=== PATIENT | male | born 1995 | race Caucasian/White ===

== ENCOUNTER 2016-06-06 01:32 | Emergency (ER) | payer OTHER ==
[2016-06-06 01:42] VITALS: BP 139/77; PULSE 106; RESP 18; TEMP 98
--- NOTE | 2016-06-06 01:52 | ED ---
General Adult HPI - General Chief complaint: Neck Pain/Injury Stated complaint: stiff neck Time Seen by Provider: 06/06/16 01:43 Source: patient, RN notes reviewed Mode of arrival: ambulatory Limitations: no limitations - History of Present Illness Initial comments: 20-year-old male presents emergency Department with chief complaint of neck pain. Patient states that his concern is his 1-month-old brother was diagnosed with meningitis last week. Patient states that he has had no fevers no chills. Patient states that it started when he was laying in bed and jumped up and states that he had some discomfort. Patient states he has poor range of motion. He denies headache. He states that a slight runny nose and cough but states this wasn't going on for a while. Patient denies any nausea, vomiting, photophobia, blurred vision. Denies any focal weakness. Patient has not taken any acetaminophen or ibuprofen or any other medications that would of altered his temp. - Related Data Home Medications Medication Instructions Recorded Confirmed No Known Home Medications [No 06/06/16 06/06/16 Known Home Medications] Allergies Allergy/AdvReac Type Severity Reaction Status Date / Time dust Allergy Unknown Uncoded 05/12/14 09:43 pollen Allergy Unknown Uncoded 05/12/14 09:43 Review of Systems ROS Statement: Those systems with pertinent positive or pertinent negative responses have been documented in the HPI. ROS Other: All systems not noted in ROS Statement are negative. Past Medical History Past Medical History: No Reported History History of Any Multi-Drug Resistant Organisms: None Reported Past Surgical History: Ear Surgery Additional Past Surgical History / Comment(s): sinus surgery Past Psychological History: ADD/ADHD, Bipolar, Depression Smoking Status: Current every day smoker Past Alcohol Use History: None Reported Past Drug Use History: None Reported General Exam Limitations: no limitations General appearance: alert, in no apparent distress Head exam: Present: atraumatic, normocephalic, normal inspection Eye exam: Present: normal appearance, PERRL, EOMI. Absent: scleral icterus, conjunctival injection, periorbital swelling ENT exam: Present: normal exam, normal oropharynx, mucous membranes moist, TM's normal bilaterally, normal external ear exam Neck exam: Present: normal inspection, full ROM. Absent: tenderness, meningismus, lymphadenopathy, thyromegaly Respiratory exam: Present: normal lung sounds bilaterally. Absent: respiratory distress, wheezes, rales, rhonchi, stridor Cardiovascular Exam: Present: regular rate, normal rhythm, normal heart sounds. Absent: systolic murmur, diastolic murmur, rubs, gallop, clicks GI/Abdominal exam: Present: soft, normal bowel sounds. Absent: distended, tenderness, guarding, rebound, rigid Neurological exam: Present: alert, oriented X3, CN II-XII intact, reflexes normal. Absent: motor sensory deficit Course Vital Signs 06/06/16 01:38 Temperature 98.0 F Pulse Rate 106 H Respiratory 18 Rate Blood Pressure 139/77 O2 Sat by Pulse 98 Oximetry Medical Decision Making - Medical Decision Making 20-year-old male presented for neck pain. Patient's pain is muscle skeletal in nature. Patient is afebrile. Patient has no meningismus. Patient is concerned as he has a brother diagnosed. Patient symptoms started after movement today. Patient has no associated headache, fever. We did discuss strict return parameters, recheck with primary care physician on Tuesday. Patient agrees to plan. Disposition Clinical Impression: Neck pain Disposition: HOME SELF-CARE Condition: Stable Instructions: Cervical Strain (ED) Additional Instructions: Please return to the Emergency Department if symptoms worsen or any other concerns. Time of Disposition: 01:52
== END 2016-06-06 02:01 | disposition home or self-care (01) ==
LOC: EC 01:32
DX: M54.2 Cervicalgia (principal); F17.200 Nicotine dependence, unspecified, uncomplicated; Z91.048 Other nonmedicinal substance allergy status
CPT/HCPCS: 99283

== ENCOUNTER 2016-07-08 16:36 | Emergency (ER) | payer OTHER ==
[2016-07-08] MEDS ORDERED: LORazepam 1 MG TAB PO STA (17:11)
--- NOTE | 2016-07-08 17:15 | ED ---
General Adult HPI - General Chief complaint: Psychiatric Symptoms Stated complaint: Anxiety Time Seen by Provider: 07/08/16 16:55 Source: patient, RN notes reviewed Mode of arrival: ambulatory Limitations: no limitations - History of Present Illness Initial comments: 21-year-old male presents to the emergency department with a chief complaint of left-sided chest pain. Patient states that this chest pain started this morning when he started having more highly stressed he was during the day yesterday. Patient states he has anything to increased amount stress lately just in general. There is no specific area event. Patient states that he started to think about an trauma happen yesterday he started to have pain to the left side of his chest. Patient states that this started stabbing pain that is constant. Patient states that it comes and goes depending on how anxious that he feels. Patient denies any fever chills cough cold runny nose with this. Patient denies any nausea or vomiting. Patient states that he was concerned due to the pain so he thought that he should be evaluated. Patient denies any recent fever, chills, shortness of breath, back pain, abdominal pain , nausea vomiting, numbness or tingling, dysuria or hematuria, constipation or diarrhea, headaches or visual changes, or any other current symptoms. - Related Data Home Medications Medication Instructions Recorded Confirmed ALPRAZolam [Xanax] 0.5 mg PO ONCE 07/08/16 07/08/16 Flaxseed Oil [[place]-3 Flaxseed Oil] 1,000 mg PO DAILY 07/08/16 07/08/16 Allergies Allergy/AdvReac Type Severity Reaction Status Date / Time dust Allergy Unknown Uncoded 07/08/16 16:53 pollen Allergy Unknown Uncoded 07/08/16 16:53 Review of Systems ROS Statement: Those systems with pertinent positive or pertinent negative responses have been documented in the HPI. ROS Other: All systems not noted in ROS Statement are negative. Past Medical History Past Medical History: No Reported History History of Any Multi-Drug Resistant Organisms: None Reported Past Surgical History: Ear Surgery Additional Past Surgical History / Comment(s): sinus surgery Past Psychological History: ADD/ADHD, Bipolar, Depression Smoking Status: Current every day smoker Past Alcohol Use History: None Reported Past Drug Use History: Marijuana General Exam Limitations: no limitations General appearance: alert, anxious Head exam: Present: atraumatic, normocephalic, normal inspection ENT exam: Present: normal exam, mucous membranes moist Neck exam: Present: normal inspection. Absent: tenderness, meningismus, lymphadenopathy Respiratory exam: Present: normal lung sounds bilaterally. Absent: respiratory distress, wheezes, rales, rhonchi, stridor Cardiovascular Exam: Present: regular rate, normal rhythm, normal heart sounds. Absent: systolic murmur, diastolic murmur, rubs, gallop, clicks Neurological exam: Present: alert, oriented X3, CN II-XII intact. Absent: motor sensory deficit Psychiatric exam: Present: normal affect, normal mood Skin exam: Present: warm, dry, intact, normal color. Absent: rash Course Vital Signs 07/08/16 07/08/16 07/08/16 16:50 17:07 17:58 Temperature 97.8 F 97.0 F L 97.4 F L Pulse Rate 104 H 107 H 115 H Respiratory 18 20 20 Rate Blood Pressure 142/93 163/80 133/84 O2 Sat by Pulse 97 97 96 Oximetry - Reevaluation(s) Reevaluation #1: 07/08/16 18:13 Patient was reassessed and he states he is still feeling anxious. The patient lay down and close his eyes and relax and his heart rate went down to 83. Medical Decision Making - Medical Decision Making 21-year-old male presents emergency department with a chief complaint of left- sided chest pain associated with anxiety. Patient has been anxious the last few days. Patient states that he notices pain is worse when he is swelling on a thoughts. Patient does present with an elevated heart rate in the room if he talks incessantly come down he noticed that it does drop into the 90s. At this time patient with an Ativan EKG and chest x-ray were performed as well as shows no Acute process. This time we discussed the pain is most likely due due to the anxiety due to the fact that the pain has resolved with the medication. We did give him outpatient counseling referrals and parameters and follow-up. The patient stated that he understood all questions were answered. He will be discharged home. 07/08/16 17:24 normal sinus rhythm with marked sinus arrhythmia 89 bpm, normal axis, no atopy, no S-T depressions or elevations, Disposition Clinical Impression: Acute anxiety, Atypical chest pain Disposition: HOME SELF-CARE Condition: Stable Instructions: Anxiety (ED) Additional Instructions: Please use medication as discussed. Please follow up with family doctor if symptoms have not improved over the next two days. Please return to the emergency room if your symptoms increase or worsen or for any other concerns. Referrals: Oliver Nelson MD [Primary Care Provider] - 1-2 days Time of Disposition: 18:14
--- NOTE | 2016-07-08 18:08 | XR ---
EXAMINATION TYPE: XR chest 2V DATE OF EXAM: 07/08/2016 5:35 PM COMPARISON: 05/12/2014 HISTORY: Cough, pain TECHNIQUE: Frontal and lateral views of the chest are obtained. FINDINGS: There is no focal air space opacity, pleural effusion, or pneumothorax seen. The cardiac silhouette size is within normal limits. The osseous structures are intact. IMPRESSION: No acute cardiopulmonary process.
[2016-07-08 18:30] VITALS: BP 148/88; PULSE 88; RESP 18; TEMP 97.8
== END 2016-07-08 18:42 | disposition home or self-care (01) ==
LOC: EC 16:36
DX: R07.89 Other chest pain (principal); F41.9 Anxiety disorder, unspecified; F31.9 Bipolar disorder, unspecified; F90.9 Attention-deficit hyperactivity disorder, unspecified type; F17.200 Nicotine dependence, unspecified, uncomplicated; Z79.899 Other long term (current) drug therapy; Z91.09 Other allergy status, other than to drugs and biological substances
CPT/HCPCS: 71020; 93005; 99285

== ENCOUNTER 2016-07-12 14:24 | Emergency (ER) | payer OTHER ==
[2016-07-12 14:45] VITALS: TEMP 97.9
--- NOTE | 2016-07-12 15:26 | ED ---
General Adult HPI - General Chief complaint: Abdominal Pain Stated complaint: left side abdominal pain Time Seen by Provider: 07/12/16 14:59 Source: patient, family, RN notes reviewed Mode of arrival: ambulatory Limitations: no limitations - History of Present Illness Initial comments: Chief complaint and history of present illness 21-year-old male here with his mother. Mother reports is very anxious. He had complained of vomiting once yesterday and left lower quadrant pain that lasted 5 minutes on 2 occasions. Had soft stool afterwards no blood. No pain now. Appetite otherwise normal. Have an appointment to see her family doctor tomorrow and an appointment to see a psychiatrist in November. - Related Data Home Medications Medication Instructions Recorded Confirmed ALPRAZolam [Xanax] 0.5 mg PO ONCE 07/08/16 07/12/16 Flaxseed Oil [[place]-3 Flaxseed Oil] 1,000 mg PO DAILY 07/08/16 07/12/16 Allergies Allergy/AdvReac Type Severity Reaction Status Date / Time dust Allergy Unknown Uncoded 07/12/16 14:45 pollen Allergy Unknown Uncoded 07/12/16 14:45 Review of Systems ROS Statement: Those systems with pertinent positive or pertinent negative responses have been documented in the HPI. Review of systems currently no headache chest pain shortness breath GI/ problems and denies any nervousness or anxiety at this time. Mother reports she 's overly anxious about everything. He was in emergency room without past several days because of an anxiety attack. Mother will talk her family physician tomorrow but medications that might help in this respect plus she has an appointment to follow-up with her psychiatrist in November all systems otherwise reviewed. Past medical problems significant for anxiety. Surgeries tear surgery sinus surgery. Family history grandfather had heart attack grandmother had lung cancer. ALLERGIES seasonal patient does smoke encouraged to stop. ROS Other: All systems not noted in ROS Statement are negative. Past Medical History Past Medical History: No Reported History History of Any Multi-Drug Resistant Organisms: None Reported Past Surgical History: Ear Surgery Additional Past Surgical History / Comment(s): sinus surgery Past Psychological History: ADD/ADHD, Bipolar, Depression Smoking Status: Current every day smoker Past Alcohol Use History: None Reported Past Drug Use History: Marijuana General Exam - General Exam Comments Initial Comments: General: The patient is awake and alert, in no distress, and does not appear acutely ill. No complaints of pain at this time. Vital signs temp 97.9 pulse 100 respiratory rate 20 pulse ox 90% room air blood pressure 149/90. Patient chronically anxious. Patient was seeing his family physician tomorrow. Eye: Pupils are equal, round and reactive to light, extra-ocular movements are intact ; there is normal conjunctiva bilaterally. No signs of icterus. Ears, nose, mouth and throat: There are moist mucous membranes and no oral lesions. Neck: The neck is supple, there is no tenderness , no anterior cervical lymphadenopathy, no stiff neck no meningismus. Cardiovascular: There is a regular rate and rhythm. No murmur, rub or gallop is appreciated. Respiratory: Lungs are clear to auscultation, respirations are non-labored, breath sounds are equal. No wheezes, stridor, rales, or rhonchi. Gastrointestinal: Soft, non-distended, non-tender abdomen without masses or organomegaly noted. There is no rebound or guarding present. No CVA tenderness. Bowel sounds are unremarkable. Back: There is no tenderness to palpation in the midline. There is no obvious deformity. No rashes noted. Musculoskeletal: Normal up her lower stomach is no complaint of weakness or numbness. Neurological: No complaint of any neuro deficits. Skin: Skin is warm and dry and no rashes or lesions are noted. Psychiatric: History of anxiety. Seeing his family physician tomorrow and will discuss with him medications that might help in that respect also following up with the psychiatrist but not until November. Limitations: no limitations Course Vital Signs 07/12/16 14:44 Temperature 97.9 F Pulse Rate 100 Respiratory 20 Rate Blood Pressure 149/90 O2 Sat by Pulse 98 Oximetry Medical Decision Making - Medical Decision Making Medical decision-making. The abdomen is probably benign at this time. Be advised the patient use some Zantac or Pepcid [id number]. As well as Pepto-Bismol. Advance diet. Follow-up family physician tomorrow and psychiatrist as arranged Disposition Clinical Impression: Loose stools, Anxiety about health, Acute anxiety Disposition: HOME SELF-CARE Condition: Stable Instructions: Generalized Anxiety Disorder (ED) Additional Instructions: Use Pepto-Bismol. Follow-up 5 physician tomorrow and psychiatrist as arranged Time of Disposition: 15:26
[2016-07-12 15:39] VITALS: BP 142/89; PULSE 86; RESP 18
== END 2016-07-12 15:39 | disposition home or self-care (01) ==
LOC: EC 14:24
DX: F41.9 Anxiety disorder, unspecified (principal); R19.7 Diarrhea, unspecified; F17.200 Nicotine dependence, unspecified, uncomplicated
CPT/HCPCS: 99283

== ENCOUNTER 2016-07-15 13:45 | Emergency (ER) | payer OTHER ==
--- NOTE | 2016-07-15 14:04 | ED ---
Abdominal Pain HPI - General Chief Complaint: Abdominal Pain Stated Complaint: abdominal & neck pain-revisit Source: patient Mode of arrival: ambulatory Limitations: no limitations - History of Present Illness Initial Comments: Patient is a 21-year-old male who presents for evaluation for lower abdominal pressure on the left side which is improved over the last couple of days. Past medical history as below. Patient also states that he has some left lateral neck/shoulder pain which seems to be on his muscle. Patient states that he's been having about a week of nausea, vomiting, abdominal discomfort. He states that he recently got over a cold. He's had decreased oral intake during this time and is also decreased normal bowel movements for him. He states that he went to an outside hospital yesterday and had a complete workup. Stated that he had a CT of his abdomen and had blood work and everything seemed to check out. He states that he was discharged home with some stool softeners which she took. He took them last night and had diarrhea at 4 AM. He was also having some small stools after that. He comes in today because he still having some left lower abdominal pressure and was concerned that he was having some pain on the left side of his neck. He stated he became more concerned after he 1 on Glucotrol and saw with symptoms that could be. He denies any abdominal pain at this time. He also states that he does not have any headaches or blurry vision. He also denies fever, chills, URI symptoms, shortness of breath, cough , chest pain, nausea, vomiting, diarrhea, pain or burning with urination. - Related Data Home Medications Medication Instructions Recorded Confirmed Flaxseed Oil [[place]-3 Flaxseed Oil] 1,000 mg PO DAILY 07/08/16 07/15/16 LORazepam [Ativan] 1 mg PO ONCE@0600 PRN 07/15/16 07/15/16 Allergies Allergy/AdvReac Type Severity Reaction Status Date / Time dust Allergy Unknown Uncoded 07/12/16 14:45 pollen Allergy Unknown Uncoded 07/12/16 14:45 Review of Systems ROS Statement: Those systems with pertinent positive or pertinent negative responses have been documented in the HPI. ROS Other: All systems not noted in ROS Statement are negative. Past Medical History Past Medical History: No Reported History History of Any Multi-Drug Resistant Organisms: None Reported Past Surgical History: Ear Surgery Additional Past Surgical History / Comment(s): sinus surgery Past Psychological History: ADD/ADHD, Bipolar, Depression Smoking Status: Current every day smoker Past Alcohol Use History: Occasional Past Drug Use History: Marijuana General Exam Limitations: no limitations General appearance: alert, in no apparent distress, other (Well appearing. Nontoxic.) Head exam: Present: atraumatic, normocephalic, normal inspection Eye exam: Present: normal appearance, PERRL, EOMI. Absent: scleral icterus, conjunctival injection, periorbital swelling ENT exam: Present: normal exam, mucous membranes moist, other (Moist mucous membranes) Neck exam: Present: normal inspection, other (No point tenderness elicited over the cervical spine. No paraspinal muscle tenderness. Cannot elicit any points of tenderness. Full range of motion of the cervical spine.). Absent: tenderness, meningismus, lymphadenopathy Respiratory exam: Present: normal lung sounds bilaterally. Absent: respiratory distress, wheezes, rales, rhonchi, stridor Cardiovascular Exam: Present: regular rate, normal rhythm, normal heart sounds. Absent: systolic murmur, diastolic murmur, rubs, gallop, clicks GI/Abdominal exam: Present: soft, normal bowel sounds, other (Bowel sounds in all 4 quadrants. No point tenderness elicited. Negative McBurney sign. Negative Benites sign. Negative rebound tenderness. No Rovsing sign. No obturator or psoas sign.). Absent: distended, tenderness, guarding, rebound, rigid Extremities exam: Present: normal inspection, full ROM, normal capillary refill. Absent: tenderness, pedal edema, joint swelling, calf tenderness Back exam: Present: normal inspection Neurological exam: Present: alert, oriented X3, CN II-XII intact Psychiatric exam: Present: normal affect, normal mood Skin exam: Present: warm, dry, intact, normal color. Absent: rash Course Vital Signs 07/15/16 07/15/16 13:59 15:45 Temperature 98.2 F 98.6 F Pulse Rate 80 98 Respiratory 18 16 Rate Blood Pressure 153/94 159/79 O2 Sat by Pulse 97 98 Oximetry Medical Decision Making - Medical Decision Making Patient presents for evaluation for left-sided neck pain and left lower abdominal pressure. We will order basic labs with IV fluids. We'll also request records from [facility]. -Reviewed the physician note for Mr. noriega. Consistent with the story the patient provided. His vital signs were stable. Noted to be quite hypertensive at 163/138. Reviewed CMP and CBC which were unremarkable. No leukocytosis. Urinalysis noted to have ketones in the urine. No signs of urinary tract infection. Lipase amylase and troponin were all normal. Creatinine kinase was also normal. UDS was positive for benzodiazepines and marijuana. Review the report for the CT imaging which revealed no acute process. In the medical decision making, it was discussed that the patient had a single episode of hypotension which spontaneously resolved with IV fluids. Also noticed to have microscopic hematuria which the patient stated that was not discussed with him. 1530: Reviewed labs with the patient. Largely unchanged from yesterday's labs at the other hospital. Had a lengthy discussion with the patient about viral illnesses which I believe this patient is currently having. He is clinically appears well. He currently has no symptoms. Has a follow-up with his primary care physician this coming Tuesday. Encouraged yogurt, bland diet until his symptoms completely resolved. Plenty of fluids. Patient stated that he drank a significant amount of alcohol the day before going to [facility] which could attribute to some of his symptoms/abnormal findings. Discussed signs and symptoms on when to return to the emergency department for further evaluation. This includes worsening pain, changes in his pain characteristics, or any other symptoms that are concerning to the patient. He voiced understanding will follow-up with his primary care physician this coming Tuesday as scheduled. - Lab Data Result diagrams: 07/15/16 14:25 07/15/16 14:25 Lab Results 07/15/16 07/15/16 Range/Units 14:25 14:25 WBC 11.6 H (3.8-10.6) k/uL RBC 5.37 (4.30-5.90) m/uL Hgb 16.1 (13.0-17.5) gm/dL Hct 46.1 (39.0-53.0) % MCV 85.9 (80.0-100.0) fL MCH 29.9 (25.0-35.0) pg MCHC 34.8 (31.0-37.0) g/dL RDW 12.4 (11.5-15.5) % Plt Count 297 (150-450) k/uL Neutrophils % 78 % Lymphocytes % 15 % Monocytes % 6 % Eosinophils % 0 % Basophils % 0 % Neutrophils # 9.1 H (1.3-7.7) k/uL Lymphocytes # 1.7 (1.0-4.8) k/uL Monocytes # 0.6 (0-1.0) k/uL Eosinophils # 0.0 (0-0.7) k/uL Basophils # 0.0 (0-0.2) k/uL Sodium 140 (137-145) mmol/L Potassium 3.9 (3.5-5.1) mmol/L Chloride 100 (98-107) mmol/L Carbon Dioxide 23 (22-30) mmol/L Anion Gap 17 mmol/L BUN 12 (9-20) mg/dL Creatinine 1.11 (0.66-1.25) mg/dL Est GFR (MDRD) Af Amer >60 (>60 ml/min/1.73 sqM) Est GFR (MDRD) Non-Af >60 (>60 ml/min/1.73 sqM) Glucose 88 (74-99) mg/dL Calcium 9.9 (8.4-10.2) mg/dL Total Bilirubin 1.6 H (0.2-1.3) mg/dL AST 21 (17-59) U/L ALT 27 (21-72) U/L Alkaline Phosphatase 44 (38-126) U/L Total Protein 8.0 (6.3-8.2) g/dL Albumin 5.0 (3.5-5.0) g/dL Disposition Clinical Impression: Muscle strain, Abdominal pain, EMY (acute kidney injury) Disposition: HOME SELF-CARE Condition: Good Instructions: Abdominal Pain (ED) Referrals: Oliver Nelson MD [Primary Care Provider] - 1-2 days
[2016-07-15] MEDS ORDERED: SODIUM CHLORIDE 0.9% 1,000 ML IV ONE (14:19)
[2016-07-15 15:03] LABS: Basophils % (A) 0 %; CHCM 36.2; Eosinophils % (A) 0 %; HCT 46.1 % (39.0-53.0); HGB 16.1 gm/dL (13.0-17.5); Luc # (Auto) 0.14; Luc % (Auto) 1; Lymphocytes # (A) 1.7 k/uL (1.0-4.8); Lymphocytes % (A) 15 %; MCH 29.9 pg (25.0-35.0); MCHC 34.8 g/dL (31.0-37.0); MCV 85.9 fL (80.0-100.0); Mean Platelet Volume 6.6; Monocytes # (A) 0.6 k/uL (0-1.0); Monocytes % (A) 6 %; Neutrophils # (A) 9.1 k/uL (1.3-7.7); Neutrophils % (A) 78 %; RBC 5.37 m/uL (4.30-5.90); RDW 12.4 % (11.5-15.5); WBC 11.6 k/uL (3.8-10.6); WBC (Perox) 11.56
[2016-07-15 15:14] LABS: ALT 27 U/L (21-72); AST 21 U/L (17-59); Alkaline Phosphatase 44 U/L (38-126); Anion Gap 17 mmol/L; Blood Urea Nitrogen 12 mg/dL (9-20); Calcium 9.9 mg/dL (8.4-10.2); Carbon Dioxide 23 mmol/L (22-30); Chloride 100 mmol/L (98-107); Glucose 88 mg/dL (74-99); Non-African American GFR(MDRD) >60 (>60 ml/min/1.73 sqM); Potassium 3.9 mmol/L (3.5-5.1); Sodium 140 mmol/L (137-145); Total Bilirubin 1.6 mg/dL (0.2-1.3)
[2016-07-15 15:47] VITALS: BP 159/79; PULSE 98; RESP 16; TEMP 98.6
== END 2016-07-15 15:45 | disposition home or self-care (01) ==
LOC: EC 13:45
DX: S16.1XXA Strain of muscle, fascia and tendon at neck level, initial encounter (principal); N17.9 Acute kidney failure, unspecified; R31.29 Other microscopic hematuria; F17.200 Nicotine dependence, unspecified, uncomplicated; X58.XXXA Exposure to other specified factors, initial encounter; Z91.048 Other nonmedicinal substance allergy status
CPT/HCPCS: 36415; 80053; 85025; 96360; 99284

== ENCOUNTER 2016-07-16 03:28 | Emergency (ER) | payer OTHER ==
[2016-07-16 04:54] LABS: Appearance,Urine Clear (Clear); Basophils # (A) 0.1 k/uL (0-0.2); Basophils % (A) 1 %; Bilirubin,Urine Negative (Negative); CH 31.1; CHCM 36.6; Eosinophils # (A) 0.1 k/uL (0-0.7); Eosinophils % (A) 1 %; Glucose,Urine (UA) Negative (Negative); HCT 42.7 % (39.0-53.0); HDW 2.63; HGB 15.4 gm/dL (13.0-17.5); Ketones,Urine 2+ (Negative); Leukocyte Esterase,Urine Negative (Negative); Luc # (Auto) 0.17; Luc % (Auto) 2; Lymphocytes # (A) 1.9 k/uL (1.0-4.8); Lymphocytes % (A) 17 %; MCH 30.8 pg (25.0-35.0); MCHC 36.1 g/dL (31.0-37.0); MCV 85.4 fL (80.0-100.0); Monocytes # (A) 0.7 k/uL (0-1.0); Monocytes % (A) 6 %; Neutrophils # (A) 8.6 k/uL (1.3-7.7); Neutrophils % (A) 74 %; Nitrite,Urine Negative (Negative); Protein,Urine Negative (Negative); RBC 5.01 m/uL (4.30-5.90); RDW 12.2 % (11.5-15.5); UA Billing (MACRO vs. MICRO) CHEM; Urobilinogen,Urine <2.0 mg/dL (<2.0); WBC 11.5 k/uL (3.8-10.6); WBC (Perox) 11.42
--- NOTE | 2016-07-16 05:06 | XR ---
EXAM: XR Abdomen, 1 View. CLINICAL HISTORY: Reason: abdominal pain TECHNIQUE: Frontal upright views of the abdomen/pelvis. COMPARISON: No relevant prior studies available. FINDINGS: Gastrointestinal tract: No grossly dilated bowel loops or free air seen on these 2 upright views. Bones: Slight leftward curvature of the lumbar spine present. No acute fracture. IMPRESSION: No acute findings seen, as above.
[2016-07-16 05:07] LABS: ALT 30 U/L (21-72); AST 21 U/L (17-59); Alkaline Phosphatase 42 U/L (38-126); Amylase 39 U/L (30-110); Anion Gap 14 mmol/L; Blood Urea Nitrogen 9 mg/dL (9-20); Calcium 9.6 mg/dL (8.4-10.2); Carbon Dioxide 21 mmol/L (22-30); Chloride 103 mmol/L (98-107); Glucose 94 mg/dL (74-99); Non-African American GFR(MDRD) >60 (>60 ml/min/1.73 sqM); Sodium 138 mmol/L (137-145); Total Bilirubin 1.8 mg/dL (0.2-1.3); Total Protein 7.5 g/dL (6.3-8.2)
[2016-07-16] MEDS ORDERED: DICYCLOMINE 10 MG/ML 2 ML AMP IM STA (05:29)
--- NOTE | 2016-07-16 08:09 | US ---
EXAMINATION TYPE: US abdomen APPY DATE OF EXAM: 07/16/2016 7:32 AM COMPARISON: NONE CLINICAL HISTORY: 21-year-old male with right lower quadrant Pain. TECHNIQUE: Targeted sonographic examination of the right lower quadrant with graded compression. FINDINGS: APPENDIX AP Diameter (normal < 6mm): 2 mm Measured outer wall to outer wall. Is the appendix seen in its entirety from the proximal cecum to distal end: no Is the appendix compressible: yes Does the appendix wall appear hypervascular: no Is an appendicolith present: no Are there inflammatory changes or free fluid present: no Images show a sort segment, blind-ending tubular structure that is compressible measuring 2 mm in desirae meter. There is no abnormal right lower quadrant fluid collection or calcification seen. IMPRESSION: Findings are felt to represent the distal segment of a normal-appearing appendix. The mid and proxima l segments are not visualized and are not evaluated. Clinical correlation recommended.
--- NOTE | 2016-07-16 08:35 | ED ---
Abdominal Pain HPI - General Chief Complaint: Abdominal Pain Stated Complaint: Revisit - Abd Pain Time Seen by Provider: 07/16/16 03:48 Source: patient Mode of arrival: ambulatory Limitations: no limitations - History of Present Illness Initial Comments: Resented with abdominal pain initially patient was seen by Dr. Jsoey Dowling endorsed the care to me at approximately 7:20 AM today, patient has this abdominal pain going on for about a week he was seen at the [facility] then he was here as well yesterday at [facility] and today he had a CBC compressive metabolic panel urinalysis KUB and SINCE HE HAD A CT OF THE ABDOMEN DONE AT [address] [place] [address] him according to the patient's CT abdomen was normal he never had a high fever on arrival his temp was 99, when we rechecked it was 98 today denies any nausea any vomiting and no when I seen him as a follow-up with Dr. Dowling was totally pain-free him a no other complaints at all - Related Data Home Medications Medication Instructions Recorded Confirmed Flaxseed Oil [[place]-3 Flaxseed Oil] 1,000 mg PO DAILY 07/08/16 07/16/16 LORazepam [Ativan] 1 mg PO ONCE@0600 PRN 07/15/16 07/16/16 Allergies Allergy/AdvReac Type Severity Reaction Status Date / Time dust Allergy Unknown Uncoded 07/12/16 14:45 pollen Allergy Unknown Uncoded 07/12/16 14:45 Review of Systems ROS Statement: Those systems with pertinent positive or pertinent negative responses have been documented in the HPI. ROS Other: All systems not noted in ROS Statement are negative. Past Medical History Past Medical History: No Reported History History of Any Multi-Drug Resistant Organisms: None Reported Past Surgical History: Ear Surgery Additional Past Surgical History / Comment(s): sinus surgery Past Psychological History: ADD/ADHD, Bipolar, Depression Smoking Status: Current every day smoker Past Alcohol Use History: Occasional Past Drug Use History: Marijuana General Exam - General Exam Comments Initial Comments: General: The patient is awake and alert, in no distress, and does not appear acutely ill. Skin: Skin is warm and dry and no rashes or lesions are noted. Eye: Pupils are equal, round and reactive to light, extra-ocular movements are intact; there is normal conjunctiva bilaterally. Ears, nose, mouth and throat: There are moist mucous membranes and no oral lesions. Neck: The neck is supple, there is no tenderness or JVD. Cardiovascular: There is a regular rate and rhythm. No murmur, rub or gallop is appreciated. Respiratory: To auscultation bilateral, no wheezing no rhonchi no distress respiratory rosas noticed Gastrointestinal: Soft, non-distended, non-tender abdomen without masses or organomegaly noted. There is no rebound or guarding present. Bowel sounds are unremarkable. No abnormalities noticed on today's exam Back: There is no tenderness to palpation in the midline. There is no obvious deformity. Musculoskeletal: Normal ROM, no tenderness, There is no pedal edema. There is no calf tenderness or swelling. No cords were appreciated. Neurological: CN II-XII intact, Cranial nerves III through XII are intact. There are no obvious motor or sensory deficits. Coordination appears grossly intact. Speech is normal. Psychiatric: Cooperative, appropriate mood & affect, normal judgment. Limitations: no limitations Course Vital Signs 07/16/16 07/16/16 03:38 05:43 Temperature 99.0 F 98.2 F Pulse Rate 98 78 Respiratory 18 16 Rate Blood Pressure 137/103 132/58 O2 Sat by Pulse 98 100 Oximetry I discussed today's lab findings with him, his CBC is within normal range WBCs 11.5, compressive metabolic panel is negative total bili is 1.8 urinalysis is negative KUB is negative, ultrasound done was reviewed and the visible part of the appendix looked normal, I did offer patient that we could repeat the CAT scan of the abdomen and I did inform him about the amount of radiation he will encounter and he chose not to do ultrasound today but promises to come back if he has a fever chills or any worsening of symptoms Medical Decision Making - Lab Data Result diagrams: 07/16/16 04:35 07/16/16 04:35 Lab Results 07/16/16 07/16/16 07/16/16 Range/Units 04:35 04:35 04:35 WBC 11.5 H (3.8-10.6) k/uL RBC 5.01 (4.30-5.90) m/uL Hgb 15.4 (13.0-17.5) gm/dL Hct 42.7 (39.0-53.0) % MCV 85.4 (80.0-100.0) fL MCH 30.8 (25.0-35.0) pg MCHC 36.1 (31.0-37.0) g/dL RDW 12.2 (11.5-15.5) % Plt Count 259 (150-450) k/uL Neutrophils % 74 % Lymphocytes % 17 % Monocytes % 6 % Eosinophils % 1 % Basophils % 1 % Neutrophils # 8.6 H (1.3-7.7) k/uL Lymphocytes # 1.9 (1.0-4.8) k/uL Monocytes # 0.7 (0-1.0) k/uL Eosinophils # 0.1 (0-0.7) k/uL Basophils # 0.1 (0-0.2) k/uL Sodium 138 (137-145) mmol/L Potassium 4.0 (3.5-5.1) mmol/L Chloride 103 (98-107) mmol/L Carbon Dioxide 21 L (22-30) mmol/L Anion Gap 14 mmol/L BUN 9 (9-20) mg/dL Creatinine 1.00 (0.66-1.25) mg/dL Est GFR (MDRD) Af Amer >60 (>60 ml/min/1.73 sqM) Est GFR (MDRD) Non-Af >60 (>60 ml/min/1.73 sqM) Glucose 94 (74-99) mg/dL Calcium 9.6 (8.4-10.2) mg/dL Total Bilirubin 1.8 H (0.2-1.3) mg/dL AST 21 (17-59) U/L ALT 30 (21-72) U/L Alkaline Phosphatase 42 (38-126) U/L Total Protein 7.5 (6.3-8.2) g/dL Albumin 4.7 (3.5-5.0) g/dL Amylase 39 (30-110) U/L Lipase 35 (23-300) U/L Urine Color Yellow Urine Appearance Clear (Clear) Urine pH 6.0 (5.0-8.0) Ur Specific [place] 1.020 (1.001-1.035) Urine Protein Negative (Negative) Urine Glucose (UA) Negative (Negative) Urine Ketones 2+ H (Negative) Urine Blood Negative (Negative) Urine Nitrate Negative (Negative) Urine Bilirubin Negative (Negative) Urine Urobilinogen <2.0 (<2.0) mg/dL Ur Leukocyte Esterase Negative (Negative) Disposition Clinical Impression: Abdominal pain Disposition: HOME SELF-CARE Instructions: Abdominal Pain (ED) Additional Instructions: he is advised to use Tylenol one gram by mouth every 8 when necessary
[2016-07-16 08:51] VITALS: BP 141/83; PULSE 77; RESP 18; TEMP 98.4
== END 2016-07-16 08:52 | disposition home or self-care (01) ==
LOC: EC 03:28
DX: R10.9 Unspecified abdominal pain (principal); F17.200 Nicotine dependence, unspecified, uncomplicated
CPT/HCPCS: 99284; 96372; 36415; 80053; 82150; 83690; 85025; 81003; 74000; 76705; J0500; 99283

== ENCOUNTER 2016-07-16 10:56 | Emergency (ER) | payer OTHER ==
[2016-07-16 11:06] VITALS: BP 126/84; PULSE 90; RESP 20; TEMP 97.8
--- NOTE | 2016-07-16 11:35 | ED ---
Male Urogenital HPI - General Chief complaint: Urogenital Stated complaint: abd pain Time Seen by Provider: 07/16/16 11:22 Source: patient Mode of arrival: ambulatory Limitations: no limitations - History of Present Illness Initial comments: This 21-year-old white male presents playing of some swelling between his testicles. He can feel a small lump in this area and is worried about it. He was just in the emergency department earlier today and had full evaluation for abdominal pain. He's been in our emergency department and like [facility]'s emergency department multiple times recently. He does have some anxiety. No fevers or chills. The abdominal pain has resolved. He denies any other complaints or modifying factors. He states that he just noticed this lump shortly after leaving our emergency department just a couple hours ago. - Related Data Home Medications Medication Instructions Recorded Confirmed Flaxseed Oil [[place]-3 Flaxseed Oil] 1,000 mg PO DAILY 07/08/16 07/16/16 LORazepam [Ativan] 1 mg PO ONCE@0600 PRN 07/15/16 07/16/16 Allergies Allergy/AdvReac Type Severity Reaction Status Date / Time dust Allergy Unknown Uncoded 07/16/16 11:05 pollen Allergy Unknown Uncoded 07/16/16 11:05 Review of Systems ROS Statement: Those systems with pertinent positive or pertinent negative responses have been documented in the HPI. ROS Other: All systems not noted in ROS Statement are negative. Past Medical History Past Medical History: No Reported History History of Any Multi-Drug Resistant Organisms: None Reported Past Surgical History: Ear Surgery Additional Past Surgical History / Comment(s): sinus surgery Past Psychological History: ADD/ADHD, Bipolar, Depression Smoking Status: Current every day smoker Past Alcohol Use History: Occasional Past Drug Use History: Marijuana General Exam Limitations: no limitations GI/Abdominal exam: Present: other (The patient has a normal-appearing genitalia. There is no lesions. The testicles are nontender and there is no masses. There is that he is concerned regarding his is seminal vesicle. It is normal in palpation. There is no swelling or erythema or masses identified. Normal exam. No lymphadenopathy.) Course Vital Signs 07/16/16 11:04 Temperature 97.8 F Pulse Rate 90 Respiratory 20 Rate Blood Pressure 126/84 O2 Sat by Pulse 99 Oximetry Medical Decision Making - Medical Decision Making The patient was seen and examined. He has a normal examination. He was reassured and is discharged. Is felt as though he may have a strong underlying degree of anxiety. Disposition Clinical Impression: Scrotal pain, Normal exam Disposition: HOME SELF-CARE Condition: Good Instructions: Normal Exam (ED) Referrals: Oliver Nelson MD [Primary Care Provider] - 07/19/16 Time of Disposition: 11:34
== END 2016-07-16 11:45 | disposition home or self-care (01) ==
LOC: EC 10:56
DX: N50.82 Scrotal pain (principal); R10.9 Unspecified abdominal pain; F31.9 Bipolar disorder, unspecified; F41.8 Other specified anxiety disorders; F90.9 Attention-deficit hyperactivity disorder, unspecified type; F17.200 Nicotine dependence, unspecified, uncomplicated; Z79.899 Other long term (current) drug therapy; Z91.048 Other nonmedicinal substance allergy status
CPT/HCPCS: 99283

== ENCOUNTER 2016-07-17 05:48 | Emergency (ER) | payer OTHER ==
[2016-07-17 06:07] VITALS: BP 148/78; PULSE 93; RESP 18; TEMP 97.6
--- NOTE | 2016-07-17 06:07 | ED ---
General Adult HPI - General Stated complaint: Male Time Seen by Provider: 07/17/16 05:50 Source: RN notes reviewed - History of Present Illness Initial comments: This is a 21-year-old male who presents to the emergency Department complaining that he has something in one of his testicles. Patient has been in the emergency department at least 6 times in the previous week and he states his been overdue [facility] multiple times as well. Patient states he's had some abdominal pain he had occasional diarrhea he states he woke up and was nauseated was difficult for him to swallow water. Patient states she was evaluated for all these problems twice yesterday and multiple times previously. Patient states tonight he did drink some water and spit it back up but he did not vomit. But now he is worried about some lump between his testicles. Patient denies any pain. Patient denies any fever chills. Patient denies any abdominal pain currently. Patient denies any dysuria hematuria urinary frequency. Patient states he doesn't think he can urinate as much is he supposed to. - Related Data Home Medications Medication Instructions Recorded Confirmed Flaxseed Oil [[place]-3 Flaxseed Oil] 1,000 mg PO DAILY 07/08/16 07/17/16 LORazepam [Ativan] 1 mg PO ONCE@0600 PRN 07/15/16 07/17/16 Allergies Allergy/AdvReac Type Severity Reaction Status Date / Time dust Allergy Unknown Uncoded 07/16/16 11:05 pollen Allergy Unknown Uncoded 07/16/16 11:05 Review of Systems ROS Statement: Those systems with pertinent positive or pertinent negative responses have been documented in the HPI. ROS Other: All systems not noted in ROS Statement are negative. Past Medical History Past Medical History: No Reported History History of Any Multi-Drug Resistant Organisms: None Reported Past Surgical History: Ear Surgery Additional Past Surgical History / Comment(s): sinus surgery Past Psychological History: ADD/ADHD, Bipolar, Depression Smoking Status: Current every day smoker Past Alcohol Use History: Occasional Past Drug Use History: Marijuana General Exam - General Exam Comments Initial Comments: GENERAL: Patient is well-developed and well-nourished. Patient is nontoxic and well- hydrated and is in no acute distress. ENT: Neck is soft and supple. No significant lymphadenopathy is noted. Oropharynx is clear. Moist mucous membranes. Neck has full range of motion without eliciting any pain. EYES: The sclera were anicteric and conjunctiva were pink and moist. Extraocular movements were intact and pupils were equal round and reactive to light. Eyelids were unremarkable. ABDOMEN: Soft and nontender with normal bowel sounds. No palpable organomegaly was noted. There is no palpable pulsatile mass. Genitalia On testicular exam he showed me the area that he was concerned about and it was his epididymis and the area was not tender the scrotum was normal there is no redness no swelling. I felt no masses on his testicles. Neurological Patient is alert and oriented x3. Cranial nerves II through XII are grossly intact. Motor and sensory are also intact. Normal speech, volume and content. Symmetrical smile. MUSCULOSKELETAL: Normal extremities with adequate strength and full range of motion. LYMPHATICS: No significant lymphadenopathy is noted PSYCHIATRIC: Normal psychiatric evaluation. Patient is anxious Course Vital Signs 07/17/16 05:59 Temperature 97.6 F Pulse Rate 93 Respiratory 18 Rate Blood Pressure 148/78 O2 Sat by Pulse 96 Oximetry Disposition Clinical Impression: Normal exam, Acute anxiety Disposition: HOME SELF-CARE Instructions: Anxiety (ED) Referrals: Oliver Nelson MD [Primary Care Provider] - 1-2 days Time of Disposition: 06:06
== END 2016-07-17 06:18 | disposition home or self-care (01) ==
LOC: EC 05:48
DX: Z71.1 Person with feared health complaint in whom no diagnosis is made (principal); F41.9 Anxiety disorder, unspecified; J30.89 Other allergic rhinitis; J30.1 Allergic rhinitis due to pollen; F17.200 Nicotine dependence, unspecified, uncomplicated; Z91.048 Other nonmedicinal substance allergy status; Z79.899 Other long term (current) drug therapy
CPT/HCPCS: 99283

== ENCOUNTER 2016-07-26 11:44 | Day surgery (SDC) | payer OTHER ==
[2016-07-23 10:43] VITALS: BMI 21.7
[~2016-07-26 11:44] MED LIST: DEXAMETHASONE SOD PHOSPHATE 10 MG/ML 1 ML VIAL IV ONE; LACTATED RINGERS 1,000 ML IV SCH; LIDOCAINE 1% 20 ML VIAL (10MG/ML) FOR IV START INTRADERMA PRN; MIDAZOLAM 2 MG/2 ML VIAL IV PRN; ONDANSETRON 4 MG/2 ML VIAL IVP ONE; SCOPOLAMINE 1.5MG/72HR PATCH TRANSDERM ONE
[2016-07-26] MEDS ORDERED: MIDAZOLAM 2 MG/2 ML VIAL ONE (13:15)
[2016-07-26] MEDS ORDERED: LIDOCAINE 1% INJ 10MG/ML (20 ML MDV) ONE (13:15)
[2016-07-26] MEDS ORDERED: SUCCINYLCHOLINE CHLORIDE 100 MG/5 ML SYR IV ONE (13:15)
[2016-07-26] MEDS ORDERED: fentaNYL (PF) 50 MCG/ML 2 ML AMP ONE (13:15)
[2016-07-26] MEDS ORDERED: KETOROLAC 30 MG/ML 1 ML VIAL ONE (13:15)
[2016-07-26] MEDS ORDERED: PROPOFOL 10 MG/ML 20 ML VIAL IV ONE (13:15)
[2016-07-26] MEDS: ceFAZolin 2 GM in SODIUM CHLORIDE 0.9% 100 ML IVPB ONE ×2 (13:18→13:30)
[2016-07-26 14:20] VITALS: TEMP 98.6
[2016-07-26] MEDS: HYDROmorphone 1 MG/ML 1 ML SYRINGE IVP PRN ×2 (14:30→14:35)
[2016-07-26] MEDS ORDERED: HYDROcodone/APAP 5-325MG 1 EACH TAB PO ONE (15:15)
[2016-07-26 15:24] VITALS: RESP 18
[2016-07-26 16:03] VITALS: BP 122/78; PULSE 109
--- NOTE | 2016-07-26 16:22 | P.OP ---
Date of Procedure: 07/26/16 Preoperative Diagnosis: Scrotal mass Postoperative Diagnosis: Same Procedure(s) Performed: Excision of scrotal mass Anesthesia: ERICA Surgeon: Kishan Loera Estimated Blood Loss (ml): 20 IV fluids (ml): 400 Pathology: other (scrotal mass) Condition: stable Disposition: PACU Indications for Procedure: The patient is a 21-year-old male who presented one week ago with a posterior scrotal mass, the etiology of which was unclear. He was reexamined 2 days later , and the lesion was unchanged. He now comes for surgical excision of the mass. Preoperative examination reveals that the mass has decreased in size compared to the most recent examination on July 21. I discussed the option of canceling surgery with the patient and his mother, but he has elected to proceed with surgery. Operative Findings: Posterior midline scrotal mass, which appeared to be an area of thickened and inflamed subcutaneous tissue. Description of Procedure: The patient was taken to the operating room and placed in the supine position. The external genitalia was prepped and draped sterilely. The scalpel was used to make a midline posterior scrotal incision measuring approximately 2.5 cm in length.. The Bovie electrocautery was used to incise the underlying dartos fascia. This was done down to the "mass", which was actually subcutaneous tissue which was thickened and appeared inflamed. A combination of sharp and blunt dissection was used to dissect this circumferentially, and it was excised. This measured approximately 1 cm in diameter. Any areas of bleeding were controlled with electrocautery. Excellent hemostasis was attained. There was no purulence or drainage. The dartos fascia was closed using 3-0 Vicryl suture in a running fashion. The skin was closed using 3-0 Vicryl suture in a running, subcuticular fashion. All sponge and needle counts were correct. A sterile gauze dressing was applied over the incision, followed by scrotal support. The patient tolerated the procedure well was taken to the recovery room in stable condition.
== END 2016-07-26 16:14 | disposition home or self-care (01) ==
LOC: OR 11:44
PROVIDERS: ATTEND Urology
DX: D29.4 Benign neoplasm of scrotum (principal); I10 Essential (primary) hypertension; F41.8 Other specified anxiety disorders; F31.9 Bipolar disorder, unspecified; F17.200 Nicotine dependence, unspecified, uncomplicated; Z79.1 Long term (current) use of non-steroidal anti-inflammatories (NSAID); Z79.899 Other long term (current) drug therapy; Z91.048 Other nonmedicinal substance allergy status
CPT/HCPCS: 93005; 55899; J2250; J1100; J0690; J2405; J2001; J3010; J1885; J1170; J0330; J2704; 88304; 88341; 88342

== ENCOUNTER 2016-07-27 10:43 | Emergency (ER) | payer OTHER ==
[2016-07-27] MEDS ORDERED: KETOROLAC 60 MG/2 ML VIAL IM STA (11:25)
--- NOTE | 2016-07-27 11:28 | ED ---
General Adult HPI - General Chief complaint: Neck Pain/Injury Stated complaint: Neck/back pain Time Seen by Provider: 07/27/16 11:00 Source: patient, RN notes reviewed Mode of arrival: ambulatory Limitations: no limitations - History of Present Illness Initial comments: This is a 21-year-old male who presents emergency Department complaining that he has some neck pain slight upper abdominal pain. Patient states he had surgery yesterday for scrotal mass and he was intubated. Patient states his neck pain feels like muscular pain and it hurts when he starts running back and has to use his muscles always had a. Patient states once he lies down and he is lying still he has no pain. Patient states touching the muscles don't appear to hurt. Patient states she also has a slight epigastric soreness. Patient denies any nausea vomiting or diarrhea. Patient denies any fever or chills. - Related Data Home Medications Medication Instructions Recorded Confirmed ALPRAZolam [Xanax] 0.25 mg PO DAILY PRN 07/23/16 07/27/16 amLODIPine [Norvasc] 2.5 mg PO DAILY 07/23/16 07/27/16 Mirtazapine [Remeron] 15 mg PO HS 07/26/16 07/27/16 Previous Rx's Medication Instructions Recorded HYDROcodone/APAP 5-325MG [[place] 1 tab PO Q4HR PRN #20 tab 07/26/16 5-325] Ibuprofen [Motrin] 600 mg PO Q6HR PRN #20 tab 07/27/16 Allergies Allergy/AdvReac Type Severity Reaction Status Date / Time wheat Allergy Unknown Verified 07/27/16 11:33 dust Allergy Unknown Uncoded 07/27/16 10:52 pollen Allergy Unknown Uncoded 07/27/16 10:52 Review of Systems ROS Statement: Those systems with pertinent positive or pertinent negative responses have been documented in the HPI. ROS Other: All systems not noted in ROS Statement are negative. Past Medical History Past Medical History: GERD/Reflux, Hypertension Additional Past Medical History / Comment(s): SL HTN, RECENT RX GIVEN. CURRENT SCROTAL MASS. History of Any Multi-Drug Resistant Organisms: None Reported Past Surgical History: Ear Surgery Additional Past Surgical History / Comment(s): BMT. Sinus Surgery Past Anesthesia/Blood Transfusion Reactions: No Reported Reaction Past Psychological History: ADD/ADHD, Anxiety, Bipolar, Depression Smoking Status: Current every day smoker Past Alcohol Use History: Occasional Additional Past Alcohol Use History / Comment(s): SMOKING SINCE 2013, 1/2 PPD EST Past Drug Use History: None Reported - Past Family History Mother Family Medical History: No Reported History General Exam - General Exam Comments Initial Comments: GENERAL: Patient is well-developed and well-nourished. Patient is nontoxic and well- hydrated and is in no acute distress. ENT: Neck is soft and supple. No significant lymphadenopathy is noted. Oropharynx is clear. Moist mucous membranes. Neck has full range of motion without eliciting any pain. Patient only has pain when he is using his neck muscles to sit up and lay down. EYES: The sclera were anicteric and conjunctiva were pink and moist. Extraocular movements were intact and pupils were equal round and reactive to light. Eyelids were unremarkable. PULMONARY: Unlabored respirations. Good breath sounds bilaterally. No audible rales rhonchi or wheezing was noted. CARDIOVASCULAR: There is a regular rate and rhythm without any murmurs gallops or rubs. ABDOMEN: Soft and very minimal tenderness in the epigastric region. No palpable organomegaly was noted. There is no palpable pulsatile mass. SKIN: Skin is clear with no lesions or rashes and otherwise unremarkable. NEUROLOGIC: Patient is alert and oriented x3. Cranial nerves II through XII are grossly intact. Motor and sensory are also intact. Normal speech, volume and content. Symmetrical smile. MUSCULOSKELETAL: Normal extremities with adequate strength and full range of motion. LYMPHATICS: No significant lymphadenopathy is noted PSYCHIATRIC: Normal psychiatric evaluation. Limitations: no limitations Course Vital Signs 07/27/16 07/27/16 10:50 11:54 Temperature 99.0 F Pulse Rate 118 H 115 H Respiratory 20 18 Rate Blood Pressure 134/81 O2 Sat by Pulse 99 Oximetry Medical Decision Making - Medical Decision Making EKG shows sinus tachycardia at 102 bpm LA interval 126 QRS is 104 QT interval 328 QTc is 427. Patient's EKG shows no ST segment elevation or depression or T wave abnormalities are noted. Chest x-ray and KUB are normal. I went back into reevaluate the patient and he had no abdominal pain at this time. Disposition Clinical Impression: Strain of neck muscle Disposition: HOME SELF-CARE Condition: Good Instructions: Cervical Strain (ED) Prescriptions: Ibuprofen [Motrin] 600 mg PO Q6HR PRN #20 tab PRN Reason: For pain Referrals: Oliver Nelson MD [Primary Care Provider] - 1-2 days Time of Disposition: 12:23
[2016-07-27 11:57] VITALS: RESP 18
--- NOTE | 2016-07-27 12:30 | XR ---
EXAMINATION TYPE: XR chest 2V DATE OF EXAM: 07/27/2016 12:13 PM COMPARISON: 07/08/2016 INDICATION: Difficulty breathing chest heaviness TECHNIQUE: Single frontal view of the chest is obtained. FINDINGS: The heart size is normal. The pulmonary vasculature is normal. The lungs are clear. IMPRESSION: 1. No acute pulmonary process.
--- NOTE | 2016-07-27 12:31 | XR ---
EXAMINATION TYPE: XR KUB DATE OF EXAM: 07/27/2016 12:13 PM COMPARISON: 07/16/2016 INDICATION: Pain TECHNIQUE: Single view abdomen FINDINGS: There is a normal bowel gas pattern. Psoas margins are normal. No organomegaly is present. No suspicious air-fluid levels or differential air-fluid levels are present. No free air is present. IMPRESSION: 1. Normal abdomen
[2016-07-27 12:38] VITALS: BP 161/85; PULSE 109; TEMP 99.2
== END 2016-07-27 12:38 | disposition home or self-care (01) ==
LOC: EC 10:43
DX: S16.1XXA Strain of muscle, fascia and tendon at neck level, initial encounter (principal); R00.0 Tachycardia, unspecified; Z79.899 Other long term (current) drug therapy; Z91.018 Allergy to other foods; Z91.048 Other nonmedicinal substance allergy status; X58.XXXA Exposure to other specified factors, initial encounter
CPT/HCPCS: 99283; 96372; 93005; 71020; 74000; J1885

== ENCOUNTER 2017-06-14 21:37 | Emergency (ER) | payer OTHER ==
[2017-06-14 22:00] VITALS: BP 166/97; PULSE 114; RESP 20; TEMP 99.1
[2017-06-14 22:24] LABS: Appearance,Urine Clear (Clear); Bilirubin,Urine Negative (Negative); Blood,Urine Negative (Negative); Color,Urine Yellow; Glucose,Urine (UA) Negative (Negative); Ketones,Urine Negative (Negative); Leukocyte Esterase,Urine Negative (Negative); Nitrite,Urine Negative (Negative); Protein,Urine Trace (Negative); Specific Gravity,Urine 1.023 (1.001-1.035); Urobilinogen,Urine <2.0 mg/dL (<2.0)
--- NOTE | 2017-06-14 22:37 | ED ---
Abdominal Pain HPI - General Chief Complaint: Abdominal Pain Stated Complaint: abdominal pain/headache/nausea Time Seen by Provider: 06/14/17 21:56 Source: patient Mode of arrival: ambulatory Limitations: no limitations - History of Present Illness Initial Comments: 21-year-old male presented for evaluation of abdominal pain. States that the pain initially started 2 days ago and left lower quadrant abdomen and then moved to the right lower quadrant abdomen. Currently the pain is generalized superior abdominal pain howeve it is minimal and he states that it is barely present. He had some constipation and states that he only had 1 stool today however was a little loose. Otherwise he denies any nausea vomiting fevers chills chest pain shortness of breath dysuria or hematuria hematochezia and melena. States never having previous symptoms of this. There is no radiation of pain down of the testicles. - Related Data Home Medications Medication Instructions Recorded Confirmed Docusate [Colace] 100 mg PO DAILY PRN 06/14/17 06/14/17 Ibuprofen [Motrin Ib] 800 mg PO Q6H PRN 06/14/17 06/14/17 Previous Rx's Medication Instructions Recorded Dicyclomine [Bentyl] 20 mg PO QID #20 tablet 06/14/17 Allergies Allergy/AdvReac Type Severity Reaction Status Date / Time wheat Allergy Unknown Verified 06/14/17 22:23 dust Allergy Unknown Uncoded 06/14/17 21:56 pollen Allergy Unknown Uncoded 06/14/17 21:56 Review of Systems ROS Statement: Those systems with pertinent positive or pertinent negative responses have been documented in the HPI. ROS Other: All systems not noted in ROS Statement are negative. Constitutional: Denies: fever, chills Eyes: Denies: eye pain, vision change ENT: Denies: ear pain, throat pain Respiratory: Denies: cough, dyspnea Cardiovascular: Denies: chest pain, palpitations Endocrine: Denies: fatigue, polydipsia, polyuria Gastrointestinal: Reports: abdominal pain, constipation. Denies: nausea, vomiting, diarrhea, hematemesis, melena, hematochezia Genitourinary: Denies: urgency, dysuria Musculoskeletal: Denies: back pain, arthralgia, myalgia Skin: Denies: rash, lesions Neurological: Denies: headache, weakness Psychiatric: Denies: anxiety, depression Hematological/Lymphatic: Denies: easy bleeding, easy bruising Past Medical History Past Medical History: GERD/Reflux, Hypertension Additional Past Medical History / Comment(s): SL HTN, RECENT RX GIVEN. CURRENT SCROTAL MASS. History of Any Multi-Drug Resistant Organisms: None Reported Past Surgical History: Ear Surgery Additional Past Surgical History / Comment(s): BMT. Sinus Surgery Past Anesthesia/Blood Transfusion Reactions: No Reported Reaction Past Psychological History: ADD/ADHD, Anxiety, Bipolar, Depression Smoking Status: Current every day smoker Past Alcohol Use History: Occasional Past Drug Use History: None Reported - Past Family History Mother Family Medical History: No Reported History General Exam Limitations: no limitations General appearance: alert, in no apparent distress Head exam: Present: atraumatic, normocephalic, normal inspection Eye exam: Present: normal appearance, PERRL, EOMI. Absent: scleral icterus, conjunctival injection, periorbital swelling ENT exam: Present: normal exam, mucous membranes moist Neck exam: Present: normal inspection. Absent: tenderness, meningismus, lymphadenopathy Respiratory exam: Present: normal lung sounds bilaterally. Absent: respiratory distress, wheezes, rales, rhonchi, stridor Cardiovascular Exam: Present: normal rhythm, tachycardia, normal heart sounds. Absent: systolic murmur, diastolic murmur, rubs, gallop, clicks GI/Abdominal exam: Present: soft, normal bowel sounds. Absent: distended, tenderness, guarding, rebound, rigid Rectal exam: Present: deferred Extremities exam: Present: normal inspection, full ROM, normal capillary refill. Absent: tenderness, pedal edema, joint swelling, calf tenderness Back exam: Present: normal inspection Neurological exam: Present: alert, oriented X3, CN II-XII intact Psychiatric exam: Present: normal affect, normal mood Skin exam: Present: warm, dry, intact, normal color. Absent: rash Course Vital Signs 06/14/17 21:56 Temperature 99.1 F Pulse Rate 114 H Respiratory 20 Rate Blood Pressure 166/97 O2 Sat by Pulse 98 Oximetry Medical Decision Making - Medical Decision Making 21-year-old present for evaluation of abdominal pain. On physical examination there is no tenderness to palpation in the abdomen is soft without peritoneal signs of guarding, rigidity, or rebound. The remainder of his exam is benign. A urinalysis was obtained which showed no acute abnormalities. Given that the patient is a symptom at this time and has no pain that is elicited to palpation no further evaluations necessary. He was advised to follow-up with his primary care physician and given strict return instructions. The patient acknowledged an understanding of all information provided and agreed with this plan of care. - Lab Data Lab Results 06/14/17 Range/Units 22:14 Urine Color Yellow Urine Appearance Clear (Clear) Urine pH 6.0 (5.0-8.0) Ur Specific [place] 1.023 (1.001-1.035) Urine Protein Trace H (Negative) Urine Glucose (UA) Negative (Negative) Urine Ketones Negative (Negative) Urine Blood Negative (Negative) Urine Nitrite Negative (Negative) Urine Bilirubin Negative (Negative) Urine Urobilinogen <2.0 (<2.0) mg/dL Ur Leukocyte Esterase Negative (Negative) Disposition Clinical Impression: Abdominal pain Disposition: HOME SELF-CARE Condition: Stable Instructions: Abdominal Pain (ED) Additional Instructions: Please use medication as discussed. Please follow up with family doctor if symptoms have not improved over the next two days. Please return to the emergency room if your symptoms increase or worsen or for any other concerns. Prescriptions: Dicyclomine [Bentyl] 20 mg PO QID #20 tablet Referrals: Oliver Nelson MD [Primary Care Provider] - 1-2 days Time of Disposition: 22:37
== END 2017-06-14 22:59 | disposition home or self-care (01) ==
LOC: EC 21:37
DX: R10.84 Generalized abdominal pain (principal); R00.0 Tachycardia, unspecified; F17.200 Nicotine dependence, unspecified, uncomplicated; Z91.018 Allergy to other foods; Z91.048 Other nonmedicinal substance allergy status
CPT/HCPCS: 81003; 99284

== ENCOUNTER 2017-06-21 12:25 | Emergency (ER) | payer OTHER ==
[2017-06-21] MEDS ORDERED: IPRATROPIUM-ALBUTEROL 3 ML NEB INHALATION STA (12:47)
[2017-06-21] MEDS ORDERED: SODIUM CHLORIDE 0.9% 1,000 ML IV STA (12:47)
--- NOTE | 2017-06-21 12:56 | ED ---
URI HPI - General Chief Complaint: Upper Respiratory Infection Stated Complaint: Cough, SOB Time Seen by Provider: 06/21/17 12:37 Source: patient Mode of arrival: ambulatory Limitations: no limitations - History of Present Illness Initial Comments: Patient is a 21-year-old male presenting to the emergency department for shortness of breath and cough. The patient states that this is been going on for the last few days and that he has been coughing up green and black sputum. He also admits to some left-sided flank pain as well as some right-sided discomfort but is unable to quantify or give characteristics. He denies any fevers or chills and states that he came in today because he became concerned about the shortness of breath. He denies any congestion, runny nose, sore throat, headache. Pt also denies any prolonged periods of immobility, CA, DVT/ PE, estrogen use, or recent surgery. - Related Data Home Medications Medication Instructions Recorded Confirmed Ibuprofen [Motrin Ib] 800 mg PO Q6H PRN 06/14/17 06/21/17 clonazePAM [KlonoPIN] 0.5 mg PO DAILY PRN 06/21/17 06/21/17 Previous Rx's Medication Instructions Recorded Albuterol Inhaler [Ventolin Hfa 1 - 2 puff INHALATION Q6HR PRN #1 06/21/17 Inhaler] inhaler predniSONE 50 mg PO DAILY #5 tablet 06/21/17 Allergies Allergy/AdvReac Type Severity Reaction Status Date / Time wheat Allergy Unknown Verified 06/21/17 12:53 dust Allergy Unknown Uncoded 06/21/17 12:36 pollen Allergy Unknown Uncoded 06/21/17 12:36 Review of Systems ROS Statement: Those systems with pertinent positive or pertinent negative responses have been documented in the HPI. Constitutional: Negative for chills, fatigue and fever. HENT: Negative for congestion. Respiratory: Negative for chest tightness, positive for shortness of breath and wheezing. Cardiovascular: Negative for chest pain and palpitations. Gastrointestinal: Negative for abdominal pain. Negative for abdominal distention , diarrhea, nausea and vomiting. Genitourinary: Negative for dysuria. Musculoskeletal: Negative for back pain, neck pain and neck stiffness. Positive for left and right sided flank pain and rib pain Skin: Negative for color change. Neurological: Negative for dizziness, speech difficulty, weakness and light- headedness. Psychiatric/Behavioral: Negative for agitation and confusion. The patient is not nervous/anxious. ROS Other: All systems not noted in ROS Statement are negative. Past Medical History Past Medical History: GERD/Reflux, Hypertension Additional Past Medical History / Comment(s): SL HTN, RECENT RX GIVEN. CURRENT SCROTAL MASS. History of Any Multi-Drug Resistant Organisms: None Reported Past Surgical History: Ear Surgery Additional Past Surgical History / Comment(s): BMT. Sinus Surgery Past Anesthesia/Blood Transfusion Reactions: No Reported Reaction Past Psychological History: ADD/ADHD, Anxiety, Bipolar, Depression Smoking Status: Light tobacco smoker Past Alcohol Use History: Occasional Past Drug Use History: Marijuana - Past Family History Mother Family Medical History: No Reported History General Exam - General Exam Comments Initial Comments: Physical Exam Constitutional: Pt is oriented to person, place, and time. Pt appears well- developed and well-nourished. No distress. HENT: Head: Normocephalic and atraumatic. Eyes: EOM are normal. Neck: Normal range of motion. Neck supple. Cardiovascular: Tachycardia present, regular rhythm, S1 normal, S2 normal and normal heart sounds. Exam reveals no gallop and no friction rub. No murmur heard. Pulmonary/Chest: Effort normal and breath sounds normal. No tachypnea and no bradypnea. No respiratory distress. No wheezes noted. Diffuse rhonchi appreciable Abdominal: Soft. Bowel sounds are normal. Pt exhibits no shifting dullness, no distension, no pulsatile liver, no fluid wave, no abdominal bruit and no ascites. There is no tenderness. There is no rigidity, no rebound, no guarding, no tenderness at McBurney's point and negative Benites's sign. Musculoskeletal: Normal range of motion. Neurological: Pt is alert and oriented to person, place, and time. No cranial nerve deficit. Skin: Skin is warm and dry. No rash noted. He is not diaphoretic. No erythema. No pallor. Psychiatric: He has a normal mood and affect. His behavior is normal. Thought content normal. Limitations: no limitations Course Vital Signs 06/21/17 06/21/17 06/21/17 12:32 13:18 13:28 Temperature 98.4 F Pulse Rate 117 H 117 H 107 H Respiratory 20 Rate Blood Pressure 141/86 O2 Sat by Pulse 99 Oximetry 06/21/17 14:23 Temperature 97.4 F L Pulse Rate 100 Respiratory 18 Rate Blood Pressure 125/87 O2 Sat by Pulse 98 Oximetry - Reevaluation(s) Reevaluation #1: 06/21/17 13:44 Patient reexamined and noted to be resting colorfully in bed. Lung exam was much more improved with no rhonchi. Patient states that symptoms are resolved. Medical Decision Making - Medical Decision Making Laboratory studies revealed that there was no significant leukocytosis and d- dimer was also performed and noted to be negative. EKG was also performed and noted to show sinus tachycardia with no significant ST depressions or elevations and patient was given breathing treatment and stated that symptoms were significantly improved. Etiology of the shortness of breath is unclear but likely secondary to respiratory infection of viral nature. Chest x-ray was also performed and showed no evidence of acute pathology. Because of the improvement with breathing treatment and negative workup, the patient was given a prescription for both albuterol as well as steroids.Patient was reexamined prior to d/c and found to be resting comfortably in bed in no acute distress.Explained all labs and diagnostic test results and that we will discharge the patient home and patient is to follow up with PCP in 1-2 days and return to the ED if symptoms worsen. Pt is agreeable to plan. - Lab Data Result diagrams: 06/21/17 13:01 06/21/17 13:01 Lab Results 06/21/17 06/21/17 06/21/17 Range/Units 13:01 13:01 13:01 WBC 5.9 (3.8-10.6) k/uL RBC 5.41 (4.30-5.90) m/uL Hgb 16.2 (13.0-17.5) gm/dL Hct 46.7 (39.0-53.0) % MCV 86.2 (80.0-100.0) fL MCH 29.9 (25.0-35.0) pg MCHC 34.7 (31.0-37.0) g/dL RDW 12.4 (11.5-15.5) % Plt Count 286 (150-450) k/uL Neutrophils % 49 % Lymphocytes % 37 % Monocytes % 7 % Eosinophils % 4 % Basophils % 1 % Neutrophils # 2.9 (1.3-7.7) k/uL Lymphocytes # 2.2 (1.0-4.8) k/uL Monocytes # 0.4 (0-1.0) k/uL Eosinophils # 0.2 (0-0.7) k/uL Basophils # 0.0 (0-0.2) k/uL D-Dimer <0.17 (<0.60) mg/L FEU Sodium 141 (137-145) mmol/L Potassium 4.0 (3.5-5.1) mmol/L Chloride 103 (98-107) mmol/L Carbon Dioxide 24 (22-30) mmol/L Anion Gap 14 mmol/L BUN 15 (9-20) mg/dL Creatinine 1.00 (0.66-1.25) mg/dL Est GFR (MDRD) Af Amer >60 (>60 ml/min/1.73 sqM) Est GFR (MDRD) Non-Af >60 (>60 ml/min/1.73 sqM) Glucose 109 H (74-99) mg/dL Calcium 10.0 (8.4-10.2) mg/dL Magnesium 1.8 (1.6-2.3) mg/dL Influenza Type A RNA (Not Detectd) Influenza Type B (PCR) (Not Detectd) 06/21/17 Range/Units 13:01 WBC (3.8-10.6) k/uL RBC (4.30-5.90) m/uL Hgb (13.0-17.5) gm/dL Hct (39.0-53.0) % MCV (80.0-100.0) fL MCH (25.0-35.0) pg MCHC (31.0-37.0) g/dL RDW (11.5-15.5) % Plt Count (150-450) k/uL Neutrophils % % Lymphocytes % % Monocytes % % Eosinophils % % Basophils % % Neutrophils # (1.3-7.7) k/uL Lymphocytes # (1.0-4.8) k/uL Monocytes # (0-1.0) k/uL Eosinophils # (0-0.7) k/uL Basophils # (0-0.2) k/uL D-Dimer (<0.60) mg/L FEU Sodium (137-145) mmol/L Potassium (3.5-5.1) mmol/L Chloride (98-107) mmol/L Carbon Dioxide (22-30) mmol/L Anion Gap mmol/L BUN (9-20) mg/dL Creatinine (0.66-1.25) mg/dL Est GFR (MDRD) Af Amer (>60 ml/min/1.73 sqM) Est GFR (MDRD) Non-Af (>60 ml/min/1.73 sqM) Glucose (74-99) mg/dL Calcium (8.4-10.2) mg/dL Magnesium (1.6-2.3) mg/dL Influenza Type A RNA Not Detected (Not Detectd) Influenza Type B (PCR) Not Detected (Not Detectd) - EKG Data EKG shows normal: sinus rhythm Rate: tachycardia EKG Comments: EKG shows sinus tachycardia with rate of 102 bpm, MO interval 128 ms, QRS duration 106, QTC 435. No significant ST depressions or elevations are noted Disposition Clinical Impression: Bronchitis Disposition: HOME SELF-CARE Condition: Good Instructions: Upper Respiratory Infection (ED) Prescriptions: Albuterol Inhaler [Ventolin Hfa Inhaler] 1 - 2 puff INHALATION Q6HR PRN #1 inhaler PRN Reason: Shortness Of Breath Or Wheezing predniSONE 50 mg PO DAILY #5 tablet Referrals: Oliver Nelson MD [Primary Care Provider] - 1-2 days Time of Disposition: 14:10
[2017-06-21 13:19] LABS: Basophils % (A) 1 %; Eosinophils # (A) 0.2 k/uL (0-0.7); Eosinophils % (A) 4 %; HCT 46.7 % (39.0-53.0); HGB 16.2 gm/dL (13.0-17.5); Lymphocytes # (A) 2.2 k/uL (1.0-4.8); Lymphocytes % (A) 37 %; MCH 29.9 pg (25.0-35.0); MCHC 34.7 g/dL (31.0-37.0); MCV 86.2 fL (80.0-100.0); Mean Platelet Volume 6.3; Monocytes # (A) 0.4 k/uL (0-1.0); Monocytes % (A) 7 %; Neutrophils # (A) 2.9 k/uL (1.3-7.7); Neutrophils % (A) 49 %; Platelet Count 286 k/uL (150-450); RBC 5.41 m/uL (4.30-5.90); RDW 12.4 % (11.5-15.5); WBC 5.9 k/uL (3.8-10.6)
[2017-06-21 13:23] LABS: Anion Gap 14 mmol/L; Blood Urea Nitrogen 15 mg/dL (9-20); Carbon Dioxide 24 mmol/L (22-30); Chloride 103 mmol/L (98-107); Glucose 109 mg/dL (74-99); Magnesium 1.8 mg/dL (1.6-2.3); Sodium 141 mmol/L (137-145)
--- NOTE | 2017-06-21 13:49 | XR ---
EXAMINATION TYPE: XR chest 2V DATE OF EXAM: 06/21/2017 COMPARISON: 07/27/2016 HISTORY: Cough and shortness of breath TECHNIQUE: Frontal and lateral views of the chest are obtained. FINDINGS: There is no focal air space opacity, pleural effusion, or pneumothorax seen. The cardiac silhouette size is within normal limits. The osseous structures are intact. Metallic nipple rings a re incidentally noted. Mild degenerative changes of the thoracic spine are multilevel. IMPRESSION: No acute cardiopulmonary process.
[2017-06-21 14:24] VITALS: BP 125/87; PULSE 100; RESP 18; TEMP 97.4
== END 2017-06-21 14:24 | disposition home or self-care (01) ==
LOC: EC 12:25
DX: J40 Bronchitis, not specified as acute or chronic (principal); R00.0 Tachycardia, unspecified; F17.200 Nicotine dependence, unspecified, uncomplicated; Z91.018 Allergy to other foods; Z91.048 Other nonmedicinal substance allergy status
CPT/HCPCS: 36415; 71046; 80048; 83735; 85025; 85379; 87502; 93005; 94640; 96360; 99284

== ENCOUNTER 2017-11-16 22:54 | Emergency (ER) | payer OTHER ==
[2017-11-17 00:14] VITALS: BP 146/83; PULSE 96; RESP 17
[2017-11-17] MEDS ORDERED: IBUPROFEN 600 MG TAB PO STA (00:15)
[2017-11-17] MEDS ORDERED: PENICILLIN VK 500MG STARTER 4 TAB BTL PO STA (00:15)
--- NOTE | 2017-11-17 00:15 | ED ---
General Adult HPI - General Chief complaint: Dental/Oral Stated complaint: Jaw numbness/soreness Time Seen by Provider: 11/16/17 23:41 Source: patient, RN notes reviewed Mode of arrival: ambulatory Limitations: no limitations - History of Present Illness Initial comments: Patient 22-year-old male presenting to the emergency room today with a chief complaint of numbness and pain to the right side of the upper lip and cheek area with dental pain. He states that occurred and started approximately half hour ago. Patient denies any drainage or discharge. Patient does admit to headache. Patient does admit that he was smoking a week prior to coming but does not believe that the activity associated. Patient states never had similar symptoms in the past. Denies any other complaints. Patient denies any recent fever, chills, shortness of breath, chest pain, back pain, abdominal pain , nausea or vomiting, dysuria or hematuria, constipation or diarrhea, visual changes, or any other complaints. - Related Data Home Medications Medication Instructions Recorded Confirmed Ibuprofen [Motrin Ib] 800 mg PO Q6H PRN 06/14/17 06/21/17 clonazePAM [KlonoPIN] 0.5 mg PO DAILY PRN 06/21/17 06/21/17 Previous Rx's Medication Instructions Recorded Albuterol Inhaler [Ventolin Hfa 1 - 2 puff INHALATION Q6HR PRN #1 06/21/17 Inhaler] inhaler predniSONE 50 mg PO DAILY #5 tablet 06/21/17 Ibuprofen [Motrin] 600 mg PO Q6HR PRN #40 day 11/17/17 Penicillin V Potassium [Pen Vee K] 500 mg PO QID #40 tablet 11/17/17 Allergies Allergy/AdvReac Type Severity Reaction Status Date / Time wheat Allergy Unknown Verified 11/16/17 22:58 dust Allergy Unknown Uncoded 11/16/17 22:58 pollen Allergy Unknown Uncoded 11/16/17 22:58 Review of Systems ROS Statement: Those systems with pertinent positive or pertinent negative responses have been documented in the HPI. ROS Other: All systems not noted in ROS Statement are negative. Past Medical History Past Medical History: GERD/Reflux, Hypertension Additional Past Medical History / Comment(s): SL HTN, RECENT RX GIVEN. CURRENT SCROTAL MASS. History of Any Multi-Drug Resistant Organisms: None Reported Past Surgical History: Ear Surgery Additional Past Surgical History / Comment(s): BMT. Sinus Surgery Past Anesthesia/Blood Transfusion Reactions: No Reported Reaction Past Psychological History: ADD/ADHD, Anxiety, Bipolar, Depression Smoking Status: Light tobacco smoker Past Alcohol Use History: Occasional Past Drug Use History: Marijuana - Past Family History Mother Family Medical History: No Reported History General Exam - General Exam Comments Initial Comments: General: The patient is awake and alert, in no distress, and does not appear acutely ill. Eye: Pupils are equal, round and reactive to light, extra-ocular movements are intact. No nystagmus. There is normal conjunctiva bilaterally. No signs of icterus. Ears, nose, mouth and throat: There are moist mucous membranes and no oral lesions. Tender in the gumline above tooth #8. No sign of abscess. Uvula midline. Patient swallows without difficulty. Sensation intact to the upper lip and right cheek. Neck: The neck is supple, there is no tenderness or JVD. Musculoskeletal: Normal ROM, no tenderness. Strength 5/5. Sensation intact. Pulses equal bilaterally 2+. Neurological: A&O x 3. CN II-XII intact, There are no obvious motor or sensory deficits. Coordination appears grossly intact. Speech is normal. Skin: Skin is warm and dry and no rashes or lesions are noted. Psychiatric: Cooperative, appropriate mood & affect, normal judgment. Limitations: no limitations Course Vital Signs 11/16/17 22:56 Temperature 98.0 F Pulse Rate 119 H Respiratory 18 Rate Blood Pressure 153/81 O2 Sat by Pulse 99 Oximetry Medical Decision Making - Medical Decision Making Patient does have tenderness to the gumline above tooth #8. There is no sign of abscess formation at this time. Patient's vitals rechecked stable here in the emergency room. Patient advised anti-inflammatories for pain will be started on antibiotics cover for dental abscess. He is advised following up with the dentist over the next 2 days return here to the emergency room symptoms increase or worsen. Disposition Clinical Impression: Dental abscess Disposition: HOME SELF-CARE Condition: Good Instructions: Dental Abscess (ED) Additional Instructions: Please use antibiotics as prescribed following up with dentist over the next 2 days. Please return here to the emergency room symptoms increase or worsen or for any other concerns. Prescriptions: Ibuprofen [Motrin] 600 mg PO Q6HR PRN #40 day PRN Reason: Pain Penicillin V Potassium [Pen Vee K] 500 mg PO QID #40 tablet Is patient prescribed a controlled substance at d/c from ED?: No Referrals: Oliver Nelson MD [Primary Care Provider] - 1-2 days Time of Disposition: 00:14
[2017-11-17 00:40] VITALS: TEMP 98.2
== END 2017-11-17 00:38 | disposition home or self-care (01) ==
LOC: EC 22:54
DX: K04.7 Periapical abscess without sinus (principal); F17.200 Nicotine dependence, unspecified, uncomplicated; Z91.018 Allergy to other foods; Z91.048 Other nonmedicinal substance allergy status
CPT/HCPCS: 99283

== ENCOUNTER 2017-12-10 13:35 | Emergency (ER) | payer OTHER ==
[2017-12-10 13:45] VITALS: RESP 18; TEMP 98.2
--- NOTE | 2017-12-10 14:05 | ED ---
General Adult HPI - General Chief complaint: Abdominal Pain Stated complaint: epigastric/chest pain Time Seen by Provider: 12/10/17 14:04 Source: patient, RN notes reviewed, old records reviewed Mode of arrival: ambulatory Limitations: no limitations - History of Present Illness Initial comments: This is a 22-year-old male to the ER for evaluation. This patient presents today for evaluation regards to abdominal pain, nonspecific epigastric abdominal pain. Patient has no significant pain now no tenderness. No fevers, no travel history no nausea vomiting or diarrhea. Denies any medication drugs rel call use. No significant medical history, no failure hours of similar complaint - Related Data Home Medications Medication Instructions Recorded Confirmed clonazePAM [KlonoPIN] 0.5 mg PO DAILY PRN 06/21/17 12/10/17 Allergies Allergy/AdvReac Type Severity Reaction Status Date / Time wheat Allergy Unknown Verified 12/10/17 13:45 dust Allergy Unknown Uncoded 12/10/17 13:45 pollen Allergy Unknown Uncoded 12/10/17 13:45 Review of Systems ROS Statement: Those systems with pertinent positive or pertinent negative responses have been documented in the HPI. ROS Other: All systems not noted in ROS Statement are negative. Past Medical History Past Medical History: GERD/Reflux, Hypertension Additional Past Medical History / Comment(s): SL HTN, RECENT RX GIVEN. CURRENT SCROTAL MASS. History of Any Multi-Drug Resistant Organisms: None Reported Past Surgical History: Ear Surgery Additional Past Surgical History / Comment(s): BMT. Sinus Surgery Past Anesthesia/Blood Transfusion Reactions: No Reported Reaction Past Psychological History: ADD/ADHD, Anxiety, Bipolar, Depression Smoking Status: Current every day smoker Past Alcohol Use History: None Reported Past Drug Use History: Marijuana - Past Family History Mother Family Medical History: No Reported History General Exam Limitations: no limitations General appearance: alert, in no apparent distress Head exam: Present: atraumatic, normocephalic, normal inspection Eye exam: Present: normal appearance, PERRL, EOMI. Absent: scleral icterus, conjunctival injection, periorbital swelling ENT exam: Present: normal exam, mucous membranes moist Neck exam: Present: normal inspection. Absent: tenderness, meningismus, lymphadenopathy Respiratory exam: Present: normal lung sounds bilaterally. Absent: respiratory distress, wheezes, rales, rhonchi, stridor Cardiovascular Exam: Present: regular rate, normal rhythm, normal heart sounds. Absent: systolic murmur, diastolic murmur, rubs, gallop, clicks GI/Abdominal exam: Present: soft, normal bowel sounds. Absent: distended, tenderness, guarding, rebound, rigid Extremities exam: Present: normal inspection, full ROM, normal capillary refill. Absent: tenderness, pedal edema, joint swelling, calf tenderness Back exam: Present: normal inspection Neurological exam: Present: alert, oriented X3, CN II-XII intact Psychiatric exam: Present: normal affect, normal mood Skin exam: Present: warm, dry, intact, normal color. Absent: rash Course Vital Signs 12/10/17 13:43 Temperature 98.2 F Pulse Rate 123 H Respiratory 18 Rate Blood Pressure 141/87 O2 Sat by Pulse 98 Oximetry - Reevaluation(s) Reevaluation #1: 12/10/17 15:25 Patient remains without significant symptoms EKG Findings - EKG Comments: EKG Findings:: EKG shows sinus tachycardia rate 104, W[place] 120, QRS 94, QTc 412 Medical Decision Making - Medical Decision Making 22 male the ER with nonspecific abdominal pain. Patient can be discharged - Lab Data Result diagrams: 12/10/17 14:17 12/10/17 14:17 Lab Results 12/10/17 12/10/17 12/10/17 Range/Units 14:17 14:17 14:17 WBC 10.4 (3.8-10.6) k/uL RBC 5.60 (4.30-5.90) m/uL Hgb 16.5 (13.0-17.5) gm/dL Hct 46.9 (39.0-53.0) % MCV 83.7 (80.0-100.0) fL MCH 29.5 (25.0-35.0) pg MCHC 35.2 (31.0-37.0) g/dL RDW 12.5 (11.5-15.5) % Plt Count 293 (150-450) k/uL Neutrophils % 66 % Lymphocytes % 23 % Monocytes % 7 % Eosinophils % 2 % Basophils % 0 % Neutrophils # 6.8 (1.3-7.7) k/uL Lymphocytes # 2.4 (1.0-4.8) k/uL Monocytes # 0.7 (0-1.0) k/uL Eosinophils # 0.2 (0-0.7) k/uL Basophils # 0.1 (0-0.2) k/uL PT (9.0-12.0) sec INR (<1.2) APTT (22.0-30.0) sec D-Dimer (<0.60) mg/L FEU Sodium 138 (137-145) mmol/L Potassium 4.0 (3.5-5.1) mmol/L Chloride 104 (98-107) mmol/L Carbon Dioxide 26 (22-30) mmol/L Anion Gap 8 mmol/L BUN 16 (9-20) mg/dL Creatinine 1.00 (0.66-1.25) mg/dL Est GFR (CKD-EPI)AfAm >90 (>60 ml/min/1.73 sqM) Est GFR (CKD-EPI)NonAf >90 (>60 ml/min/1.73 sqM) Glucose 95 (74-99) mg/dL Calcium 10.1 (8.4-10.2) mg/dL Total Bilirubin 0.8 (0.2-1.3) mg/dL AST 33 (17-59) U/L ALT 64 (21-72) U/L Alkaline Phosphatase 46 (38-126) U/L Total Creatine Kinase 239 H (55-170) U/L CK-MB (CK-2) 0.6 (0.0-2.4) ng/mL CK-MB (CK-2) Rel Index 0.3 Troponin I <0.012 (0.000-0.034) ng/mL Total Protein 7.6 (6.3-8.2) g/dL Albumin 4.9 (3.5-5.0) g/dL Amylase 58 (30-110) U/L Lipase 54 (23-300) U/L 12/10/17 Range/Units 14:17 WBC (3.8-10.6) k/uL RBC (4.30-5.90) m/uL Hgb (13.0-17.5) gm/dL Hct (39.0-53.0) % MCV (80.0-100.0) fL MCH (25.0-35.0) pg MCHC (31.0-37.0) g/dL RDW (11.5-15.5) % Plt Count (150-450) k/uL Neutrophils % % Lymphocytes % % Monocytes % % Eosinophils % % Basophils % % Neutrophils # (1.3-7.7) k/uL Lymphocytes # (1.0-4.8) k/uL Monocytes # (0-1.0) k/uL Eosinophils # (0-0.7) k/uL Basophils # (0-0.2) k/uL PT 10.3 (9.0-12.0) sec INR 1.0 (<1.2) APTT 26.5 (22.0-30.0) sec D-Dimer <0.17 (<0.60) mg/L FEU Sodium (137-145) mmol/L Potassium (3.5-5.1) mmol/L Chloride (98-107) mmol/L Carbon Dioxide (22-30) mmol/L Anion Gap mmol/L BUN (9-20) mg/dL Creatinine (0.66-1.25) mg/dL Est GFR (CKD-EPI)AfAm (>60 ml/min/1.73 sqM) Est GFR (CKD-EPI)NonAf (>60 ml/min/1.73 sqM) Glucose (74-99) mg/dL Calcium (8.4-10.2) mg/dL Total Bilirubin (0.2-1.3) mg/dL AST (17-59) U/L ALT (21-72) U/L Alkaline Phosphatase (38-126) U/L Total Creatine Kinase (55-170) U/L CK-MB (CK-2) (0.0-2.4) ng/mL CK-MB (CK-2) Rel Index Troponin I (0.000-0.034) ng/mL Total Protein (6.3-8.2) g/dL Albumin (3.5-5.0) g/dL Amylase (30-110) U/L Lipase (23-300) U/L - Radiology Data Radiology results: report reviewed (XR abd series w CXR negative for acute disease), image reviewed Disposition Clinical Impression: Abdominal pain Disposition: HOME SELF-CARE Condition: Good Instructions: Abdominal Pain (ED) Is patient prescribed a controlled substance at d/c from ED?: No Referrals: Oliver Nelson MD [Primary Care Provider] - 1-2 days
[2017-12-10] MEDS ORDERED: SODIUM CHLORIDE 0.9% 1,000 ML IV STA (14:06)
[2017-12-10] MEDS ORDERED: PANTOPRAZOLE 40 MG/10 ML VIAL IVP STA (14:06)
[2017-12-10 14:29] LABS: Basophils # (A) 0.1 k/uL (0-0.2); Basophils % (A) 0 %; Eosinophils # (A) 0.2 k/uL (0-0.7); Eosinophils % (A) 2 %; HCT 46.9 % (39.0-53.0); HGB 16.5 gm/dL (13.0-17.5); Lymphocytes # (A) 2.4 k/uL (1.0-4.8); Lymphocytes % (A) 23 %; MCH 29.5 pg (25.0-35.0); MCHC 35.2 g/dL (31.0-37.0); MCV 83.7 fL (80.0-100.0); Mean Platelet Volume 6.6; Monocytes # (A) 0.7 k/uL (0-1.0); Monocytes % (A) 7 %; Neutrophils # (A) 6.8 k/uL (1.3-7.7); Neutrophils % (A) 66 %; Platelet Count 293 k/uL (150-450); RDW 12.5 % (11.5-15.5); WBC 10.4 k/uL (3.8-10.6)
[2017-12-10 14:50] LABS: D-Dimer <0.17 mg/L FEU (<0.60); Partial Thromboplastin Time 26.5 sec (22.0-30.0); Prothrombin Time 10.3 sec (9.0-12.0)
--- NOTE | 2017-12-10 14:50 | XR ---
EXAMINATION TYPE: XR abdomen acute w cxr DATE OF EXAM: 12/10/2017 COMPARISON: NONE HISTORY: Pain with shortness of breath. TECHNIQUE: Supine and upright, views of the abdomen are obtained. Frontal view of the chest was acqu ired. FINDINGS: There is no evidence for pneumoperitoneum. The bowel gas pattern is unremarkable as there is air throughout nondilated small and large bowel. No sizeable air fluid levels. No mass effects are seen. No unusual calcifications. Frontal view of the chest demonstrates superimposition of metallic nipple piercing artifacts. No defi nite pneumothorax or acute parenchymal infiltrate. No vascular decompensation. IMPRESSION: No definite evidence of free air or bowel obstruction. Frontal view of the chest demonstrate no acute infiltrate or vascular decompensation. Marked metallic artifacts from nipple piercing.
[2017-12-10 15:05] LABS: Creatine Kinase 239 U/L (55-170)
[2017-12-10 15:10] LABS: ALT 64 U/L (21-72); AST 33 U/L (17-59); Albumin 4.9 g/dL (3.5-5.0); Alkaline Phosphatase 46 U/L (38-126); Amylase 58 U/L (30-110); Anion Gap 8 mmol/L; Blood Urea Nitrogen 16 mg/dL (9-20); Calcium 10.1 mg/dL (8.4-10.2); Carbon Dioxide 26 mmol/L (22-30); Chloride 104 mmol/L (98-107); Glucose 95 mg/dL (74-99); Lipase 54 U/L (23-300); Sodium 138 mmol/L (137-145); Total Bilirubin 0.8 mg/dL (0.2-1.3); Total Protein 7.6 g/dL (6.3-8.2)
[2017-12-10 15:17] LABS: Creatine Kinase MB 0.6 ng/mL (0.0-2.4); Troponin I <0.012 ng/mL (0.000-0.034)
[2017-12-10] MEDS ORDERED: KETOROLAC 30 MG/ML 1 ML VIAL IVP STA (15:29)
[2017-12-10 15:36] VITALS: BP 121/85; PULSE 96
== END 2017-12-10 15:46 | disposition home or self-care (01) ==
LOC: EC 13:35
DX: R10.13 Epigastric pain (principal); F17.200 Nicotine dependence, unspecified, uncomplicated; Z91.018 Allergy to other foods; Z91.048 Other nonmedicinal substance allergy status
CPT/HCPCS: 36415; 93005; 85379; 80053; 82150; 82550; 82553; 83690; 84484; 85025; 85610; 85730; 74022; 99284; 96374; 96375; 96361; J1885; C9113

== ENCOUNTER 2018-05-04 09:33 | Emergency (ER) | payer OTHER ==
[2018-05-04 09:58] VITALS: RESP 18; TEMP 98.1
[2018-05-04] MEDS ORDERED: SODIUM CHLORIDE 0.9% 1,000 ML IV STA (10:29)
[2018-05-04 11:59] LABS: Basophils % (A) 0 %; Eosinophils % (A) 0 %; HCT 49.2 % (39.0-53.0); HGB 17.3 gm/dL (13.0-17.5); Lymphocytes # (A) 1.7 k/uL (1.0-4.8); Lymphocytes % (A) 19 %; MCH 29.8 pg (25.0-35.0); MCHC 35.2 g/dL (31.0-37.0); MCV 84.6 fL (80.0-100.0); Mean Platelet Volume 6.7; Monocytes # (A) 0.5 k/uL (0-1.0); Monocytes % (A) 5 %; Neutrophils # (A) 6.8 k/uL (1.3-7.7); Neutrophils % (A) 74 %; Platelet Count 300 k/uL (150-450); RBC 5.82 m/uL (4.30-5.90); RDW 12.5 % (11.5-15.5); WBC 9.1 k/uL (3.8-10.6)
[2018-05-04 12:02] LABS: Appearance,Urine Clear (Clear); Bacteria,Urine Rare /hpf; Bilirubin,Urine Negative (Negative); Blood,Urine Negative (Negative); Color,Urine Yellow; Glucose,Urine (UA) Negative (Negative); Ketones,Urine 3+ (Negative); Leukocyte Esterase,Urine Negative (Negative); Mucus,Urine Occasional /hpf; Nitrite,Urine Negative (Negative); PH, Urine 6.5 (5.0-8.0); Protein,Urine 1+ (Negative); Specific Gravity,Urine 1.028 (1.001-1.035)
[2018-05-04 12:20] LABS: ALT 46 U/L (21-72); AST 32 U/L (17-59); Albumin 5.3 g/dL (3.5-5.0); Alkaline Phosphatase 45 U/L (38-126); Amylase 69 U/L (30-110); Anion Gap 15 mmol/L; Blood Urea Nitrogen 14 mg/dL (9-20); Calcium 10.6 mg/dL (8.4-10.2); Carbon Dioxide 20 mmol/L (22-30); Chloride 105 mmol/L (98-107); Glucose 105 mg/dL (74-99); Lipase 76 U/L (23-300); Sodium 140 mmol/L (137-145); Total Protein 8.7 g/dL (6.3-8.2)
--- NOTE | 2018-05-04 12:23 | US ---
EXAMINATION TYPE: US abdomen APPY DATE OF EXAM: 05/04/2018 COMPARISON: US CLINICAL HISTORY: Pain. RLQ pain radiating to right medial inguinal area x 2 days, nausea and vomiti ng, sweats and chills APPENDIX AP Diameter (normal < 6mm): 5.2 mm Measured outer wall to outer wall. Is the appendix seen in its entirety from the proximal cecum to distal end: yes Is the appendix compressible: yes Does the appendix wall appear hypervascular: no Is an appendicolith present: no Is there inflammatory changes or free fluid present: no Right inguinal lymph node is seen and size = 2.4 x 1.8 x 0.6cm. Patient states it is mildly painful at inguinal area. IMPRESSION: 1. Right inguinal lymph node. 2. Appendix as visualized appears normal. Clinical management recommended.
--- NOTE | 2018-05-04 13:15 | ED ---
General Adult HPI - General Chief complaint: Abdominal Pain Stated complaint: RT SIDE PAIN, NALINI Source: patient, RN notes reviewed, old records reviewed Mode of arrival: ambulatory Limitations: no limitations - History of Present Illness Initial comments: 20-year-old male patient with past medical history of anxiety presents to ED with right lower quadrant abdominal pain of 4 days, some nausea and vomitting, moderate pain with urination for 2 weeks. Patient also had some diarrhea, loose stool. Patient has concern, would like to be treated for gonorrhea/ chlamydia. Patient states that the abdominal pain is right lower quadrant waxing and waning dull pain. Patient states that nausea vomiting has been ongoing for approximately 2 days, states that his emesis is mostly just saliva. Patient feels that he is dehydrated, would like to receive fluid. Patient denies chest pain, shortness breath, headache, changes in vision. Systemic: Pt denies fatigue, myalgia, fever/chills, rash. Pt denies weakness, night sweats, weight loss. Neuro: Pt denies headache, visual disturbances, syncope or pre-syncope. HEENT: Pt denies ocular discharge or irritation, otalgia, rhinorrhea, pharyngitis or notable lymphadenopathy. Cardiopulmonary: Pt denies chest pain, SOB, heart palpitations, dyspnea on exertion. : Pt deniesfrequency/urgency. Denies new onset urinary or bowel incontinence. MSK: Pt denies myalgia, loss of strength or function in extremities. Neuro: Pt denies new onset weakness, paresthesias. - Related Data Home Medications Medication Instructions Recorded Confirmed clonazePAM [KlonoPIN] 0.5 mg PO DAILY PRN 06/21/17 05/04/18 Ketoconazole [Ketoconazole 2%] 1 applic TOPICAL DAILY 05/04/18 05/04/18 Allergies Allergy/AdvReac Type Severity Reaction Status Date / Time pollen extracts Allergy Unknown Verified 05/04/18 20:05 wheat Allergy Unknown Verified 05/04/18 20:05 dust Allergy Unknown Uncoded 05/04/18 20:05 Review of Systems ROS Statement: Those systems with pertinent positive or pertinent negative responses have been documented in the HPI. ROS Other: All systems not noted in ROS Statement are negative. Past Medical History Past Medical History: GERD/Reflux, Hypertension Additional Past Medical History / Comment(s): SL HTN, RECENT RX GIVEN. CURRENT SCROTAL MASS. History of Any Multi-Drug Resistant Organisms: None Reported Past Surgical History: Ear Surgery Additional Past Surgical History / Comment(s): BMT. Sinus Surgery Past Anesthesia/Blood Transfusion Reactions: No Reported Reaction Past Psychological History: ADD/ADHD, Anxiety, Bipolar, Depression Smoking Status: Current every day smoker Past Alcohol Use History: None Reported Past Drug Use History: Marijuana - Past Family History Mother Family Medical History: No Reported History General Exam - General Exam Comments Initial Comments: Constitutional: NAD, AOX3, Pt has pleasant affect. HEENT: NC/AT, trachea midline, neck supple, no lymphadenopathy. Posterior pharynx non erythematous, without exudates. External ears appear normal, without discharge. Mucous membranes moist. Eyes PERRLA, EOM intact. There is no scleral icterus. No pallor noted. Cardiopulmonary: RRR, no murmurs, rubs or gallops, no JVD noted. Lungs CTAB in anterior and posterior vitale. No peripheral edema. Abdominal exam: Abdomen soft and non-distended. Right lower quadrant moderately tender to palpation. Rosving sign negative, psoas sign negative. Heel tap negative. Benites sign negative. No ecchymoses, elodia and ferrell hui sign negative. Bowel sounds active in LLQ. No hepatosplenomegaly. No ecchymosis Neuro: CN II-XII grossly intact. No nuchal rigidity. MSK: No posterior calf tenderness bilaterally, homans sign negative bilaterally. Posterior tibialis and radial pulse +2 bilaterally. Sensation intact in upper and lower extremities. Full active ROM in upper and lower extremities, 5/5 stregnth. : testicles hanging symmetrically, no tenderness to testicals bilaterally, creamesteric reflex intact bilaterally, no masses felt. Limitations: no limitations Course Vital Signs 05/04/18 05/04/18 09:55 14:37 Temperature 98.1 F 98.1 F Pulse Rate 117 H 92 Respiratory 18 18 Rate Blood Pressure 151/83 144/73 O2 Sat by Pulse 98 98 Oximetry Medical Decision Making - Medical Decision Making 20-year-old male patient with past medical history of anxiety presents to ED with right lower quadrant abdominal pain of 4 days, some nausea and vomitting, moderate pain with urination for 2 weeks. Patient has concern, would like to be treated for gonorrhea/chlamydia. Patient states that the abdominal pain is right lower quadrant waxing and waning dull pain. Patient states that nausea vomiting has been ongoing for approximately 2 days, states that his emesis is mostly just saliva. Physical exam did not display acute pathology. exam was within normal limits. UA displayed +3 ketones, explained results patient, patient states he has not eaten since yesterday. CBC/CMP were not impressive. Patient to continue monitor symptoms. At the patient experiencing viral gastroenteritis. Mentation this is self-limiting process. Patient otherwise understanding. Chest importance of by mouth intake. Patient verbalized understanding. Patient has scheduled follow-up primary care provider tomorrow. Patient to return to ED if new symptoms develop including chest pain, shortness breath, abdominal pain, any other new symptoms. Patient to be called on results of gonorrhea or chlamydia. Case discussed with Dr. Key. - Lab Data Result diagrams: 05/04/18 10:55 05/04/18 10:55 Lab Results 05/04/18 05/04/18 05/04/18 Range/Units 10:55 10:55 10:55 WBC 9.1 (3.8-10.6) k/uL RBC 5.82 (4.30-5.90) m/uL Hgb 17.3 (13.0-17.5) gm/dL Hct 49.2 (39.0-53.0) % MCV 84.6 (80.0-100.0) fL MCH 29.8 (25.0-35.0) pg MCHC 35.2 (31.0-37.0) g/dL RDW 12.5 (11.5-15.5) % Plt Count 300 (150-450) k/uL Neutrophils % 74 % Lymphocytes % 19 % Monocytes % 5 % Eosinophils % 0 % Basophils % 0 % Neutrophils # 6.8 (1.3-7.7) k/uL Lymphocytes # 1.7 (1.0-4.8) k/uL Monocytes # 0.5 (0-1.0) k/uL Eosinophils # 0.0 (0-0.7) k/uL Basophils # 0.0 (0-0.2) k/uL Sodium 140 (137-145) mmol/L Potassium 4.0 (3.5-5.1) mmol/L Chloride 105 (98-107) mmol/L Carbon Dioxide 20 L (22-30) mmol/L Anion Gap 15 mmol/L BUN 14 (9-20) mg/dL Creatinine 0.98 (0.66-1.25) mg/dL Est GFR (CKD-EPI)AfAm >90 (>60 ml/min/1.73 sqM) Est GFR (CKD-EPI)NonAf >90 (>60 ml/min/1.73 sqM) Glucose 105 H (74-99) mg/dL Calcium 10.6 H (8.4-10.2) mg/dL Total Bilirubin 1.0 (0.2-1.3) mg/dL AST 32 (17-59) U/L ALT 46 (21-72) U/L Alkaline Phosphatase 45 (38-126) U/L Total Protein 8.7 H (6.3-8.2) g/dL Albumin 5.3 H (3.5-5.0) g/dL Amylase 69 (30-110) U/L Lipase 76 (23-300) U/L Urine Color Yellow Urine Appearance Clear (Clear) Urine pH 6.5 (5.0-8.0) Ur Specific [place] 1.028 (1.001-1.035) Urine Protein 1+ H (Negative) Urine Glucose (UA) Negative (Negative) Urine Ketones 3+ H (Negative) Urine Blood Negative (Negative) Urine Nitrite Negative (Negative) Urine Bilirubin Negative (Negative) Urine Urobilinogen 2.0 (<2.0) mg/dL Ur Leukocyte Esterase Negative (Negative) Urine WBC 1 (0-5) /hpf Urine Bacteria Rare H (None) /hpf Urine Mucus Occasional H (None) /hpf Disposition Clinical Impression: Abdominal pain, STI (sexually transmitted infection), Gastroenteritis Disposition: HOME SELF-CARE Condition: Good Instructions: Gonorrhea (ED), Abdominal Pain (ED) Additional Instructions: Patient to adhere to previously discussed treatment plan and will take medication(s) as directed. Patient to follow up with PCP in 1-2 days. Patient to return to ED if symptoms do not improve. Is patient prescribed a controlled substance at d/c from ED?: No Referrals: Nakul Rice Jr, DO [Primary Care Provider] - 1-2 days Time of Disposition: 14:37
[2018-05-04] MEDS ORDERED: AZITHROMYCIN 500 MG TAB PO STA (13:45)
[2018-05-04] MEDS ORDERED: cefTRIAXone 250 MG VIAL IM STA (13:45)
[2018-05-04 14:37] VITALS: BP 144/73; PULSE 92
--- NOTE | 2018-05-04 20:24 | ED ---
Medical Decision Making - Medical Decision Making 20-year-old male patient with past medical history of anxiety presents to ED with right lower quadrant abdominal pain of 4 days, some nausea and vomitting, moderate pain with urination for 2 weeks. Patient has concern, would like to be treated for gonorrhea/chlamydia. Patient states that the abdominal pain is right lower quadrant waxing and waning dull pain. Patient states that nausea vomiting has been ongoing for approximately 2 days, states that his emesis is mostly just saliva. Physical exam displayed some right lower quadrant tenderness. US of RLQ displayed appendix and no signs of appendicitis. exam was within normal limits. UA displayed +3 ketones, explained results patient, patient states he has not eaten since yesterday. CBC/CMP were not impressive. Patient to continue monitor symptoms. At the patient experiencing viral gastroenteritis. Mentation this is self-limiting process. Patient otherwise understanding. Chest importance of by mouth intake. Patient verbalized understanding. Patient has scheduled follow-up primary care provider tomorrow. Patient to return to ED if new symptoms develop including chest pain, shortness breath, abdominal pain, any other new symptoms. Patient to be called on results of gonorrhea or chlamydia. Case discussed with Dr. Key. - Lab Data Result diagrams: 05/04/18 10:55 05/04/18 10:55 Lab Results 05/04/18 05/04/18 05/04/18 Range/Units 10:55 10:55 10:55 WBC 9.1 (3.8-10.6) k/uL RBC 5.82 (4.30-5.90) m/uL Hgb 17.3 (13.0-17.5) gm/dL Hct 49.2 (39.0-53.0) % MCV 84.6 (80.0-100.0) fL MCH 29.8 (25.0-35.0) pg MCHC 35.2 (31.0-37.0) g/dL RDW 12.5 (11.5-15.5) % Plt Count 300 (150-450) k/uL Neutrophils % 74 % Lymphocytes % 19 % Monocytes % 5 % Eosinophils % 0 % Basophils % 0 % Neutrophils # 6.8 (1.3-7.7) k/uL Lymphocytes # 1.7 (1.0-4.8) k/uL Monocytes # 0.5 (0-1.0) k/uL Eosinophils # 0.0 (0-0.7) k/uL Basophils # 0.0 (0-0.2) k/uL Sodium 140 (137-145) mmol/L Potassium 4.0 (3.5-5.1) mmol/L Chloride 105 (98-107) mmol/L Carbon Dioxide 20 L (22-30) mmol/L Anion Gap 15 mmol/L BUN 14 (9-20) mg/dL Creatinine 0.98 (0.66-1.25) mg/dL Est GFR (CKD-EPI)AfAm >90 (>60 ml/min/1.73 sqM) Est GFR (CKD-EPI)NonAf >90 (>60 ml/min/1.73 sqM) Glucose 105 H (74-99) mg/dL Calcium 10.6 H (8.4-10.2) mg/dL Total Bilirubin 1.0 (0.2-1.3) mg/dL AST 32 (17-59) U/L ALT 46 (21-72) U/L Alkaline Phosphatase 45 (38-126) U/L Total Protein 8.7 H (6.3-8.2) g/dL Albumin 5.3 H (3.5-5.0) g/dL Amylase 69 (30-110) U/L Lipase 76 (23-300) U/L Urine Color Yellow Urine Appearance Clear (Clear) Urine pH 6.5 (5.0-8.0) Ur Specific [place] 1.028 (1.001-1.035) Urine Protein 1+ H (Negative) Urine Glucose (UA) Negative (Negative) Urine Ketones 3+ H (Negative) Urine Blood Negative (Negative) Urine Nitrite Negative (Negative) Urine Bilirubin Negative (Negative) Urine Urobilinogen 2.0 (<2.0) mg/dL Ur Leukocyte Esterase Negative (Negative) Urine WBC 1 (0-5) /hpf Urine Bacteria Rare H (None) /hpf Urine Mucus Occasional H (None) /hpf Disposition Clinical Impression: Abdominal pain, STI (sexually transmitted infection), Gastroenteritis Disposition: HOME SELF-CARE Condition: Good Instructions: Gonorrhea (ED), Abdominal Pain (ED) Additional Instructions: Patient to adhere to previously discussed treatment plan and will take medication(s) as directed. Patient to follow up with PCP in 1-2 days. Patient to return to ED if symptoms do not improve. Is patient prescribed a controlled substance at d/c from ED?: No Referrals: Nakul Rice Jr, DO [Primary Care Provider] - 1-2 days
[2018-05-05 14:24] LABS: C. trachomatis,PCR Negative (Neg,Equiv); Chlamydia trachomatis Source Urine; N. gonorrhoeae,PCR Negative (Neg,Equiv); Neisseria Source Urine
== END 2018-05-04 14:44 | disposition home or self-care (01) ==
LOC: EC 09:33
DX: K52.9 Noninfective gastroenteritis and colitis, unspecified (principal); A64 Unspecified sexually transmitted disease; F41.9 Anxiety disorder, unspecified; F17.200 Nicotine dependence, unspecified, uncomplicated; Z79.899 Other long term (current) drug therapy; Z91.018 Allergy to other foods; Z91.09 Other allergy status, other than to drugs and biological substances
CPT/HCPCS: 36415; 80053; 82150; 83690; 85025; 81001; 87491; 87591; 76705; 99284; 96360; 96372; J0696

== ENCOUNTER 2019-07-05 19:36 | Emergency (ER) | payer OTHER ==
[2019-07-05 19:43] VITALS: TEMP 98.9
--- NOTE | 2019-07-05 20:50 | ED ---
General Adult HPI - General Chief complaint: Urogenital Stated complaint: Male Time Seen by Provider: 07/05/19 19:50 Source: patient, RN notes reviewed, old records reviewed Mode of arrival: ambulatory Limitations: no limitations - History of Present Illness Initial comments: 24-year-old male patient presents to ED for chief complaint of sensation of pressure in his anal region. Denies any trauma. Patient was seen by urologist for this today believes is possibly pulled muscle. Denies a concern for STD. Denies any dysuria. Denies any other complaints. Patient reports that he is presenting today mostly because he wants a rectal exam as he was not performed and it would put his mind at ease. Pt also reports that he has been having some burning in his left-sided inguinal region. Systemic: Pt denies fatigue, fever/chills, rash. Pt denies weakness, night sweats, weight loss. Neuro: Pt denies headache, visual disturbances, syncope or pre-syncope. HEENT: Pt denies ocular discharge or irritation, otalgia, rhinorrhea, pharyngit is or notable lymphadenopathy. Cardiopulmonary: Pt denies chest pain, SOB, heart palpitations, dyspnea on exertion. Abdominal/GI: Pt denies abdominal pain, n/v/d. : Pt denies dysuria, burning w/ urination, frequency/urgency. Denies new onset urinary or bowel incontinence. MSK: Pt denies myalgia, loss of strength or function in extremities. Neuro: Pt denies new onset weakness, paresthesias. - Related Data Home Medications Medication Instructions Recorded Confirmed clonazePAM [KlonoPIN] 0.5 mg PO DAILY PRN 06/21/17 05/04/18 Ketoconazole [Ketoconazole 2%] 1 applic TOPICAL DAILY 05/04/18 05/04/18 Allergies Allergy/AdvReac Type Severity Reaction Status Date / Time pollen extracts Allergy Unknown Verified 07/05/19 19:37 wheat Allergy Unknown Verified 07/05/19 19:37 dust Allergy Unknown Uncoded 07/05/19 19:37 Review of Systems ROS Statement: Those systems with pertinent positive or pertinent negative responses have been documented in the HPI. ROS Other: All systems not noted in ROS Statement are negative. Past Medical History Past Medical History: GERD/Reflux, Hypertension Additional Past Medical History / Comment(s): SL HTN, RECENT RX GIVEN. CURRENT SCROTAL MASS. History of Any Multi-Drug Resistant Organisms: None Reported Past Surgical History: Ear Surgery Additional Past Surgical History / Comment(s): BMT. Sinus Surgery, scrotum surgery Past Anesthesia/Blood Transfusion Reactions: No Reported Reaction Past Psychological History: ADD/ADHD, Anxiety, Bipolar, Depression Smoking Status: Current every day smoker Past Alcohol Use History: None Reported Past Drug Use History: Marijuana - Past Family History Mother Family Medical History: No Reported History General Exam - General Exam Comments Initial Comments: Constitutional: NAD, AOX3, Pt has pleasant affect. HEENT: NC/AT, trachea midline, neck supple, no lymphadenopathy. Posterior pharynx non erythematous, without exudates. External ears appear normal, without discharge. Mucous membranes moist. Eyes PERRLA, EOM intact. There is no scleral icterus. No pallor noted. Cardiopulmonary: RRR, no murmurs, rubs or gallops, no JVD noted. Lungs CTAB in anterior and posterior vitale. No peripheral edema. Abdominal exam: Abdomen soft and non-distended. Abdomen non-tender to palpation in all 4 quadrants. Bowel sounds active in LLQ. No hepatosplenomegaly. No ecchymosis Neuro: CN II-XII grossly intact. No nuchal rigidity. No raccon eyes, no jordan sign, no hemotympanum. No cervical spinal tenderness. MSK: No posterior calf tenderness bilaterally, homans sign negative bilaterally. Posterior tibialis and radial pulse +2 bilaterally. Sensation intact in upper and lower extremities. Full active ROM in upper and lower extremities, 5/5 stregnth. Rectal: No hemorrhoids or masses noted. No fissures. No gross blood noted. : No scrotal tenderness, cremasteric reflex intact, no hernias. No skin changes. Left Inguinal region and mild tender with palpation. No skin changes, no hernia. Limitations: no limitations Course Vital Signs 07/05/19 07/05/19 19:38 21:27 Temperature 98.9 F Pulse Rate 136 H 97 Respiratory 20 18 Rate Blood Pressure 144/88 131/83 O2 Sat by Pulse 98 97 Oximetry Medical Decision Making - Medical Decision Making 24-year-old male patient presents to ED for chief complaint of sensation of pressure in his anal region. Denies any trauma. Patient was seen by urologist for this today believes is possibly pulled muscle. Denies a concern for STD. Denies any dysuria. Denies any other complaints. Patient reports that he is presenting today mostly because he wants a rectal exam as he was not performed and it would put his mind at ease. Patient also has a history displayed mild tachycardia likely secondary to anxiety. Patient states that he is very anxious. Repeat vital signs are stable, afebrile. Physical exam denies acute pathology. Rectal exam did not reveal any hemorrhoids masses. UA was done which revealed plus for ketones, +1 protein. Patient was a has not eaten all day. Patient was fed, drinking in room. Patient is requests CMP be drawn to assess kidney function. This revealed mildly elevated bilirubin, otherwise non- impressive. Patient discharged will follow up with his primary care provider and his urologist. Return to ER if condition worsens. Case discussed and labs reviewed by Dr. Perez. - Lab Data Result diagrams: 07/05/19 22:38 Lab Results 07/05/19 07/05/19 Range/Units 20:40 22:38 Sodium 138 (137-145) mmol/L Potassium 3.9 (3.5-5.1) mmol/L Chloride 102 (98-107) mmol/L Carbon Dioxide 20 L (22-30) mmol/L Anion Gap 16 mmol/L BUN 15 (9-20) mg/dL Creatinine 0.98 (0.66-1.25) mg/dL Est GFR (CKD-EPI)AfAm >90 (>60 ml/min/1.73 sqM) Est GFR (CKD-EPI)NonAf >90 (>60 ml/min/1.73 sqM) Glucose 88 (74-99) mg/dL Calcium 10.2 (8.4-10.2) mg/dL Total Bilirubin 1.6 H (0.2-1.3) mg/dL AST 25 (17-59) U/L ALT 20 (4-49) U/L Alkaline Phosphatase 45 (38-126) U/L Total Protein 8.6 H (6.3-8.2) g/dL Albumin 5.4 H (3.5-5.0) g/dL Urine Color Yellow Urine Appearance Clear (Clear) Urine pH 6.0 (5.0-8.0) Ur Specific [place] 1.038 H (1.001-1.035) Urine Protein 1+ H (Negative) Urine Glucose (UA) Negative (Negative) Urine Ketones 4+ H (Negative) Urine Blood Negative (Negative) Urine Nitrite Negative (Negative) Urine Bilirubin Negative (Negative) Urine Urobilinogen 2.0 (<2.0) mg/dL Ur Leukocyte Esterase Negative (Negative) Urine RBC <1 (0-5) /hpf Urine WBC 2 (0-5) /hpf Urine Mucus Occasional H (None) /hpf Disposition Clinical Impression: Rectal pressure Disposition: HOME SELF-CARE Condition: Stable Instructions (If sedation given, give patient instructions): Rectal Pain (ED) Additional Instructions: Follow-up with primary care provider and urologist tomorrow. Return to ER if condition worsens in any way. Is patient prescribed a controlled substance at d/c from ED?: No Referrals: Nakul Rice Jr, DO [Primary Care Provider] - 1-2 days
[2019-07-05 21:13] LABS: Appearance,Urine Clear (Clear); Bilirubin,Urine Negative (Negative); Blood,Urine Negative (Negative); Color,Urine Yellow; Glucose,Urine (UA) Negative (Negative); Ketones,Urine 4+ (Negative); Leukocyte Esterase,Urine Negative (Negative); Mucus,Urine Occasional /hpf; Nitrite,Urine Negative (Negative); Protein,Urine 1+ (Negative); RBC,Urine <1 /hpf (0-5); Specific Gravity,Urine 1.038 (1.001-1.035); WBC,Urine 2 /hpf (0-5)
[2019-07-05 21:28] VITALS: BP 131/83; PULSE 97; RESP 18
[2019-07-05 23:08] LABS: ALT 20 U/L (4-49); AST 25 U/L (17-59); African American GFR (CKD) >90 (>60 ml/min/1.73 sqM); Albumin 5.4 g/dL (3.5-5.0); Alkaline Phosphatase 45 U/L (38-126); Anion Gap 16 mmol/L; Blood Urea Nitrogen 15 mg/dL (9-20); Calcium 10.2 mg/dL (8.4-10.2); Carbon Dioxide 20 mmol/L (22-30); Chloride 102 mmol/L (98-107); Glucose 88 mg/dL (74-99); Non-African American GFR(CKD) >90 (>60 ml/min/1.73 sqM); Potassium 3.9 mmol/L (3.5-5.1); Sodium 138 mmol/L (137-145); Total Bilirubin 1.6 mg/dL (0.2-1.3); Total Protein 8.6 g/dL (6.3-8.2)
== END 2019-07-06 00:07 | disposition home or self-care (01) ==
LOC: EC 19:36
DX: K62.89 Other specified diseases of anus and rectum (principal); R00.0 Tachycardia, unspecified; F41.9 Anxiety disorder, unspecified; R79.89 Other specified abnormal findings of blood chemistry; I10 Essential (primary) hypertension; F17.200 Nicotine dependence, unspecified, uncomplicated; Z91.018 Allergy to other foods; Z91.048 Other nonmedicinal substance allergy status; Z98.890 Other specified postprocedural states
CPT/HCPCS: 36415; 80053; 81001; 87491; 87591; 99284

== ENCOUNTER 2021-06-13 09:08 | Emergency (ER) | payer OTHER ==
[2021-06-13 09:25] VITALS: BP 140/83; PULSE 116; RESP 20; TEMP 98
--- NOTE | 2021-06-13 09:49 | ED ---
General Adult HPI - General Chief complaint: Skin/Abscess/Foreign Body Stated complaint: skin issues Source: patient Mode of arrival: ambulatory Limitations: no limitations - History of Present Illness Initial comments: 25-year-old male with a past medical history of GERD, hypertension presents to the emergency room for a chief complaint of tinea. Patient states he has been having dandruff in his hair and believes he has a fungal infection. States sometimes the lymph node behind his ear gets swollen because of this. He states he has noticed some increased hair loss he feels. He has not followed up with his doctor.Patient has no other complaints at this time including shortness of breath, chest pain, abdominal pain, nausea or vomiting, headache, or visual changes. - Related Data Home Medications Medication Instructions Recorded Confirmed clonazePAM [KlonoPIN] 0.5 mg PO DAILY PRN 06/21/17 05/04/18 Ketoconazole [Ketoconazole 2%] 1 applic TOPICAL DAILY 05/04/18 05/04/18 Allergies Allergy/AdvReac Type Severity Reaction Status Date / Time pollen extracts Allergy Unknown Verified 06/13/21 09:24 wheat Allergy Unknown Verified 06/13/21 09:24 dust Allergy Unknown Uncoded 06/13/21 09:24 Review of Systems ROS Statement: Those systems with pertinent positive or pertinent negative responses have been documented in the HPI. ROS Other: All systems not noted in ROS Statement are negative. Past Medical History Past Medical History: GERD/Reflux, Hypertension Additional Past Medical History / Comment(s): SL HTN, RECENT RX GIVEN. CURRENT SCROTAL MASS. History of Any Multi-Drug Resistant Organisms: None Reported Past Surgical History: Ear Surgery Additional Past Surgical History / Comment(s): BMT. Sinus Surgery, scrotum surgery Past Anesthesia/Blood Transfusion Reactions: No Reported Reaction Past Psychological History: ADD/ADHD, Anxiety, Bipolar, Depression Smoking Status: Never smoker Past Alcohol Use History: None Reported Past Drug Use History: Marijuana - Past Family History Mother Family Medical History: No Reported History General Exam Limitations: no limitations Course Vital Signs 06/13/21 09:22 Temperature 98 F Pulse Rate 116 H Respiratory 20 Rate Blood Pressure 140/83 O2 Sat by Pulse 98 Oximetry Medical Decision Making - Medical Decision Making Patient will be to the [facility] and will follow up with dermatology. He'll return here for any worsening symptoms. Disposition Clinical Impression: Pityriasis capitis in adult Disposition: HOME SELF-CARE Condition: Good Instructions (If sedation given, give patient instructions): Selenium Sulfide (On the skin) Additional Instructions: Please use Selenium sulfide 1% (selsun blue) and follow up with dermatology. Return to the emergency room for any worsening symptoms. Is patient prescribed a controlled substance at d/c from ED?: No Referrals: Nakul Rice Jr, DO [Primary Care Provider] - 1-2 days Chaim Busby MD [STAFF PHYSICIAN] - 1-2 days Time of Disposition: 09:44
== END 2021-06-13 10:22 | disposition home or self-care (01) ==
LOC: EC 09:08
DX: L21.0 Seborrhea capitis (principal); I10 Essential (primary) hypertension; Z91.048 Other nonmedicinal substance allergy status; Z91.018 Allergy to other foods; Z91.09 Other allergy status, other than to drugs and biological substances
CPT/HCPCS: 99282

== ENCOUNTER 2021-11-15 20:29 | Emergency (ER) | payer OTHER ==
[2021-11-15 21:58] VITALS: RESP 16; TEMP 97.6
[2021-11-15] MEDS ORDERED: KETOROLAC 15 MG/ML 1 ML VIAL IM STA (22:53)
[2021-11-15] MEDS ORDERED: ORPHENADRINE 30 MG/ML 2 ML VIAL IM STA (22:53)
--- NOTE | 2021-11-15 22:58 | ED ---
General Adult HPI - General Chief complaint: Extremity Injury, Lower Stated complaint: Fall @1930/Back pain/vomiting Time Seen by Provider: 11/15/21 22:41 Source: patient, RN notes reviewed Mode of arrival: ambulatory Limitations: no limitations - History of Present Illness Initial comments: 26-year-old male presents to the emergency department for evaluation of injury to the left leg status post trip and fall this afternoon. Patient states he also has mid back pain that worsens with rotational movement to the right. He did not take any medications prior to arrival. Denies headache, dizziness, blurry vision, neck pain, chest pain, shortness of breath, abdominal pain, loss of bowel or bladder control, saddle anesthesia, or foot drop. - Related Data Home Medications Medication Instructions Recorded Confirmed clonazePAM [KlonoPIN] 0.5 mg PO DAILY PRN 06/21/17 05/04/18 Ketoconazole [Ketoconazole 2%] 1 applic TOPICAL DAILY 05/04/18 05/04/18 Previous Rx's Medication Instructions Recorded Cyclobenzaprine [Flexeril] 10 mg PO TID PRN #15 tab 11/16/21 Ibuprofen [Motrin] 600 mg PO Q8HR PRN #30 tab 11/16/21 Allergies Allergy/AdvReac Type Severity Reaction Status Date / Time pollen extracts Allergy Unknown Verified 11/15/21 21:58 wheat Allergy Unknown Verified 11/15/21 21:58 dust Allergy Unknown Uncoded 11/15/21 21:58 Review of Systems ROS Statement: Those systems with pertinent positive or pertinent negative responses have been documented in the HPI. ROS Other: All systems not noted in ROS Statement are negative. Past Medical History Past Medical History: GERD/Reflux, Hypertension Additional Past Medical History / Comment(s): SL HTN, RECENT RX GIVEN. CURRENT SCROTAL MASS. History of Any Multi-Drug Resistant Organisms: None Reported Past Surgical History: Ear Surgery Additional Past Surgical History / Comment(s): BMT. Sinus Surgery, scrotum surgery Past Anesthesia/Blood Transfusion Reactions: No Reported Reaction Past Psychological History: ADD/ADHD, Anxiety, Bipolar, Depression Smoking Status: Never smoker Past Alcohol Use History: None Reported Past Drug Use History: Marijuana - Past Family History Mother Family Medical History: No Reported History General Exam Limitations: no limitations (Well-developed, well-nourished male in no acute distress. Initial temperature 97.6, pulse 88, respirations 16, blood pressure 146/92, pulse ox 97% on room air.) General appearance: alert, in no apparent distress Head exam: Present: atraumatic, normocephalic, normal inspection Eye exam: Present: normal appearance, PERRL, EOMI. Absent: scleral icterus, conjunctival injection, periorbital swelling, periorbital tenderness ENT exam: Present: normal exam, normal oropharynx, mucous membranes moist Neck exam: Present: normal inspection, full ROM. Absent: tenderness, meningismus, lymphadenopathy Respiratory exam: Present: normal lung sounds bilaterally. Absent: respiratory distress, wheezes, rales, rhonchi, stridor Cardiovascular Exam: Present: regular rate, normal rhythm, normal heart sounds. Absent: systolic murmur, diastolic murmur, rubs, gallop, clicks GI/Abdominal exam: Present: soft, normal bowel sounds. Absent: distended, tenderness, guarding, rebound, rigid Left Knee exam: Present: normal inspection, full ROM, tenderness (prepatellar tenderness upon palpation), full knee extension. Absent: swelling, abrasion Lower Leg exam: Present: normal inspection, full ROM, tenderness (tenderness upon palpation of proximal tibia). Absent: swelling, abrasion Foot/Toe exam: Present: normal inspection, full ROM. Absent: tenderness, swelling Neurovascular tendon exam: Present: no vascular compromise. Absent: motor deficit, sensory deficit, tendon deficit Back exam: Present: normal inspection, paraspinal tenderness (left sided thoracic tenderness upon palpation and with movement) Neurological exam: Present: alert, oriented X3, normal gait Psychiatric exam: Present: normal affect, normal mood Skin exam: Present: warm, dry, intact, normal color. Absent: rash Course Vital Signs 11/15/21 11/16/21 21:55 01:37 Temperature 97.6 F Pulse Rate 88 87 Respiratory 16 16 Rate Blood Pressure 146/92 135/78 O2 Sat by Pulse 97 98 Oximetry Medical Decision Making - Medical Decision Making 26-year-old male with no significant past medical history presents to the emergency department for evaluation of left leg pain. patient states he tripped and fell while working outside today. upon exam, patient is well-appearing and in no acute distress. He does appear flushed and affirms that he has been working out in the sun recently. No head or neck pain. Does have thoracic back pain with repositioning that is spasming in nature. Also has proximal left tib- fib tenderness, though no obvious deformity or step-off. Xrays negative. Patient given pain medication and muscle relaxer with improvement. Provided with a work note and instructed to follow up with PCP if discomfort persists. Return parameters discussed in detail. Patient verbalizes understanding and agrees with this plan. Attending: Heydi. - Radiology Data Radiology results: report reviewed, image reviewed X-rays of the left tibia and fibula were obtained. Report was reviewed in its entirety. Impression per Dr. Zimmer is negative exam. Disposition Clinical Impression: Fall, Left leg pain, Acute thoracic back pain Disposition: HOME SELF-CARE Condition: Stable Instructions (If sedation given, give patient instructions): Back Pain (ED) Additional Instructions: Take the Motrin (antiinflammatory) for pain. Flexeril is a muscle relaxer, though it may make you groggy. Rest. Increase fluids. Consider electrolyte drink while at work. Gentle range of motion exercises. Follow-up with your PCP for a recheck in 48-72 hours. Return to the emergency department with any new, worsening, or concerning symptoms. Prescriptions: Cyclobenzaprine [Flexeril] 10 mg PO TID PRN #15 tab PRN Reason: Muscle Spasm Ibuprofen [Motrin] 600 mg PO Q8HR PRN #30 tab PRN Reason: Pain Is patient prescribed a controlled substance at d/c from ED?: No Referrals: Nakul Rice Jr, DO [Primary Care Provider] - 1-2 days Forms: Work/School Release Time of Disposition: 00:55
--- NOTE | 2021-11-16 | XR ---
EXAMINATION TYPE: XR tibia fibula LT DATE OF EXAM: 11/15/2021 COMPARISON: NONE HISTORY: Fall. Pain TECHNIQUE: 4 views FINDINGS: Tibia and fibula appear intact. Ankle joint and knee joint appear intact. Joint spaces are normal. Patella is intact. IMPRESSION: Negative left tibia and fibula exam.
[2021-11-16] MEDS ORDERED: HYDROcodone/APAP 5-325MG 1 EACH TAB PO STA (00:51)
[2021-11-16 01:40] VITALS: BP 135/78; PULSE 87
== END 2021-11-16 01:40 | disposition home or self-care (01) ==
LOC: EC 20:29
DX: M79.605 Pain in left leg (principal); M54.6 Pain in thoracic spine; Z91.030 Bee allergy status; Z91.048 Other nonmedicinal substance allergy status; Z91.018 Allergy to other foods
CPT/HCPCS: 73590; 99284; 96372; J2360; J1885

== ENCOUNTER 2022-07-29 18:21 | Emergency (ER) | payer OTHER ==
[2022-07-29 18:42] VITALS: RESP 16; TEMP 98
[2022-07-29] MEDS ORDERED: SODIUM CHLORIDE 0.9% 1,000 ML IV STA (19:08)
--- NOTE | 2022-07-29 19:16 | ED ---
General Adult HPI - General Chief complaint: Neuro Symptoms/Deficit Stated complaint: vomiting blood Time Seen by Provider: 07/29/22 18:44 Source: patient Mode of arrival: ambulatory Limitations: no limitations - History of Present Illness Initial comments: Dictation was produced using [employer] dictation software. please excuse any grammatical, word or spelling errors. Chief Complaint: 27-year-old male presents to emergency department after episode of bilateral upper extremity paresthesias and right jaw paresthesias History of Present Illness: Patient 27-year-old male he is on his lasting antibiotics for treatment of sinusitis. He was driving north from [place] forgot what he started to have a headache. He went again ibuprofen. Headache improved. While he was driving he did have an episode paresthesias that were limited to his bilateral upper extremities and his right jaw. It lasted for several minutes and improved spontaneously. Patient denies any complaints at the bedside. The ROS documented in this emergency department record has been reviewed and confirmed by me. Those systems with pertinent positive or negative responses have been documented in the HPI. All other systems are other negative and/or noncontributory. PHYSICAL EXAM: General Impression: Alert and oriented x3, not in acute distress HEENT: Normocephalic atraumatic, extra-ocular movements intact, pupils equal and reactive to light bilaterally, mucous membranes moist. Cardiovascular: Heart regular rate and rhythm Chest: Able to complete full sentences, no retractions, no tachypnea Abdomen: abdomen soft, non-tender, non-distended, no organomegaly Musculoskeletal: Pulses present and equal in all extremities, no peripheral edema Motor: no focal deficits noted Neurological: CN II-XII grossly intact, no focal motor or sensory deficits noted Skin: Intact with no visualized rashes Psych: Normal affect and mood ED course: 27-year-old male presents emergency department for a brief episode of neuropathic symptoms following a headache that was treated with ibuprofen. Vital signs upon arrival are within acceptable limits. Nursing notes and chart review was performed My EKG interpretation: Ventricular rate 84, sinus rhythm,. 133, QRS 111, QTc 386. No IA prolongation, no QTC prolongation, no ST or T-wave changes noted. Overall, this EKG is unremarkable Was pt. sent in by a medical professional or institution (, PA, REDEVELOPMENT MANAGER, urgent care, hospital, or retirement...) When possible be specific @ -No Did you speak to anyone other than the patient for history (EMS, parent, family, police, friend...)? What history was obtained from this source @ -No Did you review nursing and triage notes (agree or disagree)? Why? @ -I reviewed and agree with nursing and triage notes Were old charts reviewed (outside hosp., previous admission, EMS record, old EKG, old radiological studies, urgent care reports/EKG's, retirement records)? Report findings @ -No old charts were reviewed Differential Diagnosis (chest pain, altered mental status, abdominal pain women, abdominal pain men, vaginal bleeding, musculoskeletal, weakness, fever, dyspnea, syncope, headache, dizziness, GI bleed, back pain, seizure, CVA, palpatations, mental health)? @ -Differential Headache: Migraine, tension, cluster, carbon monoxide, central venous thrombosis, pension karma temporal arteritis, acute closure glaucoma, intercranial hemorrhage, mastoiditis, sinusitis, head injury, this is not meant to be an all-inclusive list. EKG interpreted by me (3pts min.). @ -See above X-rays interpreted by me (1pt min.). @ -None done CT interpreted by me (1pt min.). @ -None done U/S interpreted by me (1pt. min.). @ -None done What testing was considered but not performed or refused? (CT, X-rays, U/S, labs)? Why? @ -See above What meds were considered but not given or refused? Why? @ -See above Did you discuss the management of the patient with other professionals (professionals i.e. , PA, REDEVELOPMENT MANAGER, lab, RT, psych nurse, social psychologist, histopathology technician, teacher, search and rescue officer, patient case manager)? Give summary @ -no Was smoking cessation discussed for >3mins.? @ -No Was critical care preformed (if so, how long)? @ -No Were there social determinants of health that impacted care today? How? (Homelessness, low income, unemployed, alcoholism, drug addiction, transportation, low edu. Level, literacy, decrease access to med. care, [facility], rehab)? @ -No Was there de-escalation of care discussed even if they declined (Discuss DNR or withdrawal of care, Hospice)? DNR status @ -No What co-morbidities impacted this encounter? (DM, HTN, Smoking, COPD, CAD, Cancer, CVA, ARF, Chemo, Hep., AIDS, mental health diagnosis, sleep apnea, morbid obesity)? @ -None Was patient admitted / discharged? Hospital course, mention meds given and route, prescriptions, significant lab abnormalities, going to OR and other pert inent info. @ -27-year-old male presents with paresthesias. Laboratory evaluation unremarkable. Patient given IV fluids to the emergency department for 2 hours. Reevaluated bedside 8:30 PM feeling improved. She is paresthesias did not recur. Patient's symptoms likely related to complex migraine. Advised up with primary care doctor. Undiagnosed new problem with uncertain prognosis? @ -No Drug Therapy requiring intensive monitoring for toxicity (Heparin, Nitro, Insulin, Cardizem)? @ -No Were any procedures done? @ -No Diagnosis/symptom? Acute, or Chronic, or Acute on Chronic? Uncomplicated (without systemic symptoms) or Complicated (systemic symptoms)? @ -1. Acute uncomplicated episodic neuropathy Side effects of treatment? @ -No Exacerbation, Progression, or Severe Exacerbation? @ -No Poses a threat to life or bodily function? How? (Chest pain, [place], [place], pneumonia, PE, COPD, DKA, ARF, appy, cholecystitis, CVA, Diverticulitis, Homicidal, Suicidal, threat to staff... and all critical care pts) @ -No - Related Data Home Medications Medication Instructions Recorded Confirmed Cetirizine HCl 10 mg PO DAILY 07/19/22 07/29/22 Ibuprofen [Motrin] 600 mg PO QID PRN 07/19/22 07/29/22 Pantoprazole [Protonix] 40 mg PO DAILY 07/19/22 07/29/22 Chlorhexidine Gluconate [Peridex] 15 ml PO BID 07/23/22 07/29/22 Multivitamins, Thera [Multivitamin 1 tab PO DAILY 07/23/22 07/29/22 (formulary)] [place]-3/Dha/Epa/Fish Oil [Fish Oil 1 cap PO DAILY 07/23/22 07/29/22 1,000 mg Softgel] Previous Rx's Medication Instructions Recorded Ondansetron Odt [Zofran Odt] 4 mg PO Q8HR PRN #10 tab 07/19/22 cefUROXime axetiL [Ceftin] 500 mg PO BID 10 Days #20 tab 07/19/22 Allergies Allergy/AdvReac Type Severity Reaction Status Date / Time clindamycin Allergy Rash/Hives Verified 07/23/22 17:23 pollen extracts Allergy Unknown Verified 07/23/22 17:23 wheat Allergy Unknown Verified 07/23/22 17:23 dust Allergy Unknown Uncoded 07/23/22 15:55 Review of Systems ROS Statement: Those systems with pertinent positive or pertinent negative responses have been documented in the HPI. ROS Other: All systems not noted in ROS Statement are negative. Past Medical History Past Medical History: GERD/Reflux, Hypertension Additional Past Medical History / Comment(s): SL HTN, RECENT RX GIVEN. CURRENT SCROTAL MASS. History of Any Multi-Drug Resistant Organisms: None Reported Past Surgical History: Ear Surgery Additional Past Surgical History / Comment(s): BMT. Sinus Surgery, scrotum surgery Past Anesthesia/Blood Transfusion Reactions: No Reported Reaction Past Psychological History: ADD/ADHD, Anxiety, Bipolar, Depression Smoking Status: Former smoker Past Alcohol Use History: None Reported Past Drug Use History: Marijuana - Past Family History Mother Family Medical History: No Reported History General Exam Limitations: no limitations Course Vital Signs 07/29/22 18:38 Temperature 98 F Pulse Rate 90 Respiratory 16 Rate Blood Pressure 143/93 O2 Sat by Pulse 98 Oximetry Medical Decision Making - Lab Data Result diagrams: 07/29/22 19:12 07/29/22 19:12 Lab Results 07/29/22 07/29/22 Range/Units 19:12 19:12 WBC 13.9 H (3.8-10.6) k/uL RBC 5.44 (4.30-5.90) m/uL Hgb 16.3 (13.0-17.5) gm/dL Hct 46.9 (39.0-53.0) % MCV 86.2 (80.0-100.0) fL MCH 30.0 (25.0-35.0) pg MCHC 34.8 (31.0-37.0) g/dL RDW 12.4 (11.5-15.5) % Plt Count 319 (150-450) k/uL MPV 7.4 Neutrophils % 76 % Lymphocytes % 16 % Monocytes % 5 % Eosinophils % 2 % Basophils % 1 % Neutrophils # 10.5 H (1.3-7.7) k/uL Lymphocytes # 2.2 (1.0-4.8) k/uL Monocytes # 0.7 (0-1.0) k/uL Eosinophils # 0.2 (0-0.7) k/uL Basophils # 0.1 (0-0.2) k/uL Sodium 138 (137-145) mmol/L Potassium 4.0 (3.5-5.1) mmol/L Chloride 99 (98-107) mmol/L Carbon Dioxide 26 (22-30) mmol/L Anion Gap 13 mmol/L BUN 13 (9-20) mg/dL Creatinine 0.84 (0.66-1.25) mg/dL Est GFR (CKD-EPI)AfAm >90 (>60 ml/min/1.73 sqM) Est GFR (CKD-EPI)NonAf >90 (>60 ml/min/1.73 sqM) Glucose 93 (74-99) mg/dL Calcium 9.5 (8.4-10.2) mg/dL Total Bilirubin 0.4 (0.2-1.3) mg/dL AST 36 (17-59) U/L ALT 50 H (4-49) U/L Alkaline Phosphatase 56 (38-126) U/L Total Protein 8.2 (6.3-8.2) g/dL Albumin 5.2 H (3.5-5.0) g/dL Disposition Clinical Impression: Neuropathy Disposition: HOME SELF-CARE Condition: Good Instructions (If sedation given, give patient instructions): Acute Headache (ED) Is patient prescribed a controlled substance at d/c from ED?: No Referrals: Naresh Diamond MD [Primary Care Provider] - 1-2 days Time of Disposition: 20:28
[2022-07-29 19:34] LABS: Basophils # (A) 0.1 k/uL (0-0.2); Basophils % (A) 1 %; Eosinophils # (A) 0.2 k/uL (0-0.7); Eosinophils % (A) 2 %; HCT 46.9 % (39.0-53.0); HGB 16.3 gm/dL (13.0-17.5); Lymphocytes # (A) 2.2 k/uL (1.0-4.8); Lymphocytes % (A) 16 %; MCHC 34.8 g/dL (31.0-37.0); MCV 86.2 fL (80.0-100.0); Mean Platelet Volume 7.4; Monocytes # (A) 0.7 k/uL (0-1.0); Monocytes % (A) 5 %; Neutrophils # (A) 10.5 k/uL (1.3-7.7); Neutrophils % (A) 76 %; Platelet Count 319 k/uL (150-450); RBC 5.44 m/uL (4.30-5.90); RDW 12.4 % (11.5-15.5); WBC 13.9 k/uL (3.8-10.6)
[2022-07-29 19:43] LABS: ALT 50 U/L (4-49); AST 36 U/L (17-59); African American GFR (CKD) >90 (>60 ml/min/1.73 sqM); Albumin 5.2 g/dL (3.5-5.0); Alkaline Phosphatase 56 U/L (38-126); Anion Gap 13 mmol/L; Blood Urea Nitrogen 13 mg/dL (9-20); Calcium 9.5 mg/dL (8.4-10.2); Carbon Dioxide 26 mmol/L (22-30); Chloride 99 mmol/L (98-107); Glucose 93 mg/dL (74-99); Non-African American GFR(CKD) >90 (>60 ml/min/1.73 sqM); Sodium 138 mmol/L (137-145); Total Bilirubin 0.4 mg/dL (0.2-1.3); Total Protein 8.2 g/dL (6.3-8.2)
[2022-07-29 20:36] VITALS: BP 118/93; PULSE 87
== END 2022-07-29 20:36 | disposition home or self-care (01) ==
LOC: EC 18:21
DX: G62.9 Polyneuropathy, unspecified (principal); I10 Essential (primary) hypertension; K21.9 Gastro-esophageal reflux disease without esophagitis; F12.90 Cannabis use, unspecified, uncomplicated; Z79.1 Long term (current) use of non-steroidal anti-inflammatories (NSAID); Z79.899 Other long term (current) drug therapy; Z87.891 Personal history of nicotine dependence; Z88.8 Allergy status to other drugs, medicaments and biological substances
CPT/HCPCS: 36415; 80053; 85025; 93005; 96360; 99284

== ENCOUNTER → 2023-01-20 | Outpatient (CLI) | payer BC, OTHER ==
--- NOTE | 2023-01-20 09:43 | US ---
EXAMINATION TYPE: US abdomen complete DATE OF EXAM: 01/20/2023 COMPARISON: Abdominal ultrasound 07/27/2012 CLINICAL INDICATION: Male, 27 years old with history of K21.9 GERD; right side pain, abnormal labs, d ehydration TECHNIQUE: Multiple sonographic images of the abdomen are obtained. FINDINGS: EXAM MEASUREMENTS: Liver Length: 17.1 cm Gallbladder Wall: 0.2 cm Spleen: 14.0 cm Right Kidney: 11.1 x 4.8 x 4.9 cm Left Kidney: 10.5 x 4.2 x 5.4 cm Pancreas: Head and tail not well visualized Liver: Echogenic and coarse Gallbladder: no stones, sludge or wall thickening Evidence for sonographic Benites's sign: neg CBD: Obscured by overlying bowel gas Spleen: Enlarged in size Right Kidney: No hydronephrosis or masses seen Left Kidney: No hydronephrosis or masses seen Upper IVC: Limited visualization Abd Aorta: Proximal obscured by overlying bowel gas The liver is echogenic with coarsened appearance. The intrahepatic portion of the IVC is limited by o verlying bowel gas. The proximal abdominal aorta is obscured by overlying bowel gas. There is no evid ence of cholelithiasis. Common bile duct is obscured by overlying bowel gas. The visualized portions of the pancreas are homogenous. The head and tail is obscured by overlying bowel gas. The spleen is enlarged. Kidneys are symmetric and free of hydronephrosis. No renal lesions are seen. IMPRESSION: 1. Mild splenomegaly. 2. Hepatic steatosis.
== END | disposition home or self-care (01) ==
LOC: RADUSWWP 09:00
PROVIDERS: ATTEND Family Medicine
DX: K21.9 Gastro-esophageal reflux disease without esophagitis (principal); K76.0 Fatty (change of) liver, not elsewhere classified; R16.1 Splenomegaly, not elsewhere classified
CPT/HCPCS: 76700

== ENCOUNTER → 2023-02-11 | Outpatient (CLI) | payer BC, OTHER ==
--- NOTE | 2023-02-11 11:52 | FL ---
EXAMINATION TYPE: FL UGI w esophagus DATE OF EXAM: 02/11/2023 COMPARISON: NONE HISTORY: Gastroesophageal reflux TECHNIQUE: A single/double contrast UGI study is performed. A total of 1 minute and 58 seconds of f luoroscopic time was utilized during procedure and 24 images obtained. Total dose area product (DAP) in uGy*m?, mGy*cm? (or similar): Not provided. FINDINGS: Material Processor image of the abdomen shows no gross abnormality. The esophagus shows normal motility and emptying into the stomach. There is a small hiatal hernia wit h gastroesophageal reflux to the mid esophageal level. The stomach shows normal distensibility, peristalsis, and mucosal folds. No evidence of any mass or ulcer disease. The duodenal bulb, sweep, and proximal small bowel loops are of normal caliber. IMPRESSION: 1. Small hiatal hernia with moderate gastroesophageal reflux to the mid esophageal level.
== END | disposition home or self-care (01) ==
LOC: RADUSWWP 09:37
PROVIDERS: ATTEND Family Medicine
DX: K21.9 Gastro-esophageal reflux disease without esophagitis (principal); K44.9 Diaphragmatic hernia without obstruction or gangrene; E86.0 Dehydration; R82.998 Other abnormal findings in urine; R79.89 Other specified abnormal findings of blood chemistry; R05.9 Cough, unspecified; R07.9 Chest pain, unspecified
CPT/HCPCS: 74240

== ENCOUNTER 2023-06-10 02:43 | Emergency (ER) | payer BC ==
--- NOTE | 2023-06-10 03:01 | ED ---
General Adult HPI - General Chief complaint: Upper Respiratory Infection Stated complaint: Coughing blood, vomiting Time Seen by Provider: 06/10/23 02:50 Source: patient Mode of arrival: ambulatory Limitations: no limitations - History of Present Illness Initial comments: 27-year-old male presenting to the ED with chief complaint of hemoptysis. Patient notes that he has had a cough for the past 1-2 months. States that it is dry in nature. States today woke up with a coughing fit and notes that he had some streaks of blood in this prompting presentation to the ED for further evaluation. Denies tobacco use. No recent travel or extended periods of immobilization. No chest pain or shortness of breath. No other complaints. - Related Data Home Medications Medication Instructions Recorded Confirmed Cetirizine HCl 10 mg PO DAILY 07/19/22 07/29/22 Ibuprofen [Motrin] 600 mg PO QID PRN 07/19/22 07/29/22 Pantoprazole [Protonix] 40 mg PO DAILY 07/19/22 07/29/22 Chlorhexidine Gluconate [Peridex] 15 ml PO BID 07/23/22 07/29/22 Multivitamins, Thera [Multivitamin 1 tab PO DAILY 07/23/22 07/29/22 (formulary)] [place]-3/Dha/Epa/Fish Oil [Fish Oil 1 cap PO DAILY 07/23/22 07/29/22 1,000 mg Softgel] Previous Rx's Medication Instructions Recorded Ondansetron Odt [Zofran Odt] 4 mg PO Q8HR PRN #10 tab 07/19/22 cefUROXime axetiL [Ceftin] 500 mg PO BID 10 Days #20 tab 07/19/22 Allergies Allergy/AdvReac Type Severity Reaction Status Date / Time clindamycin Allergy Rash/Hives Verified 06/10/23 02:49 pollen extracts Allergy Unknown Verified 06/10/23 02:49 wheat Allergy Unknown Verified 06/10/23 02:49 dust Allergy Unknown Uncoded 06/10/23 02:49 Review of Systems ROS Statement: Those systems with pertinent positive or pertinent negative responses have been documented in the HPI. ROS Other: All systems not noted in ROS Statement are negative. Past Medical History Past Medical History: GERD/Reflux, Hypertension Additional Past Medical History / Comment(s): SL HTN, RECENT RX GIVEN. CURRENT SCROTAL MASS. History of Any Multi-Drug Resistant Organisms: None Reported Past Surgical History: Ear Surgery Additional Past Surgical History / Comment(s): BMT. Sinus Surgery, scrotum surgery Past Anesthesia/Blood Transfusion Reactions: No Reported Reaction Past Psychological History: ADD/ADHD, Anxiety, Bipolar, Depression Smoking Status: Former smoker Past Alcohol Use History: None Reported Past Drug Use History: Marijuana - Past Family History Mother Family Medical History: No Reported History General Exam Limitations: no limitations General appearance: alert, in no apparent distress Eye exam: Present: normal appearance Neck exam: Present: normal inspection Respiratory exam: Present: normal lung sounds bilaterally Cardiovascular Exam: Present: regular rate, normal rhythm GI/Abdominal exam: Present: soft Neurological exam: Present: alert, oriented X3 Skin exam: Present: warm, dry Course Vital Signs 06/10/23 06/10/23 02:47 03:24 Temperature 98.4 F Pulse Rate 126 H 81 Respiratory 20 18 Rate Blood Pressure 126/76 O2 Sat by Pulse 98 96 Oximetry Medical Decision Making - Medical Decision Making Was pt. sent in by a medical professional or institution (, PA, OWNER/PHOTOGRAPHER, urgent care, hospital, or snf...) When possible be specific @ -no Did you speak to anyone other than the patient for history (EMS, parent, family, police, friend...)? What history was obtained from this source @ -No Did you review nursing and triage notes (agree or disagree)? Why? @ -I reviewed and agree with nursing and triage notes Were old charts reviewed (outside hosp., previous admission, EMS record, old EKG, old radiological studies, urgent care reports/EKG's, snf records)? Report findings @ -No old charts were reviewed Differential Diagnosis (chest pain, altered mental status, abdominal pain women, abdominal pain men, vaginal bleeding, weakness, fever, dyspnea, syncope, headache, dizziness, GI bleed, back pain, seizure, CVA, palpatations, mental health, musculoskeletal)? @ -Differential Dyspnea: Coronary syndrome, arrhythmia, tamponade, asthma, COPD, pulmonary embolism, pneumonia, pneumothorax, pulmonary effusion, anaphylaxis, diabetic ketoacidosis, flailed chest, pulmonary contusion, diaphragmatic rupture, anemia, neuromuscular, this is not meant to be an all-inclusive list. EKG interpreted by me (3pts min.). @ -None X-rays interpreted by me (1pt min.). @ -chest x-ray interpreted by me showing no evidence of acute process. CT interpreted by me (1pt min.). @ -None done U/S interpreted by me (1pt. min.). @ -None done What testing was considered but not performed or refused? (CT, X-rays, U/S, labs)? Why? @ -None What meds were considered but not given or refused? Why? @ -None Did you discuss the management of the patient with other professionals (professionals i.e. , PA, OWNER/PHOTOGRAPHER, lab, RT, psych nurse, social research assistant, health therapist, teacher, credit officer, case advocate)? Give summary @ -No Was smoking cessation discussed for >3mins.? @ -No Was critical care preformed (if so, how long)? @ -No Were there social determinants of health that impacted care today? How? (Homelessness, low income, unemployed, alcoholism, drug addiction, transportation, low edu. Level, literacy, decrease access to med. care, shelter, rehab)? @ -No Was there de-escalation of care discussed even if they declined (Discuss DNR or withdrawal of care, Hospice)? DNR status @ -No What co-morbidities impacted this encounter? (DM, HTN, Smoking, COPD, CAD, C ancer, CVA, ARF, Chemo, Hep., AIDS, mental health diagnosis, sleep apnea, morbid obesity)? @ -None Was patient admitted / discharged? Hospital course, mention meds given and route, prescriptions, significant lab abnormalities, going to OR and other pertinent info. @ -discharge Laboratory studies reviewed. Labs significant for a microcytic anemia with hemoglobin 11.6, hematocrit 34.4, MCV at 77. D-dimer unremarkable. Chemistry panel unremarkable. Troponin negative. UA shows no evidence of infection. Serology panel negative. Chest x-ray revealed no evidence of acute process. Discharged home in stable condition. Advised iron supplementation and close follow-up with his PCP for serial hemoglobin. Discussed return precautions with patient who verbalized agreement. Undiagnosed new problem with uncertain prognosis? @ -No Drug Therapy requiring intensive monitoring for toxicity (Heparin, Nitro, Insulin, Cardizem)? @ -No Were any procedures done? @ -No Diagnosis/symptom? @ -hemoptysis Acute, or Chronic, or Acute on Chronic? @ -Acute Uncomplicated (without systemic symptoms) or Complicated (systemic symptoms)? @ -uncomplicated. Side effects of treatment? @ -No Exacerbation, Progression, or Severe Exacerbation? @ -No Poses a threat to life or bodily function? How? (Chest pain, [place], [place], pneumonia, PE, COPD, DKA, ARF, appy, cholecystitis, CVA, Diverticulitis, Homicidal, Suicidal, threat to staff... and all critical care pts) @ -No - Lab Data Result diagrams: 06/10/23 03:06 06/10/23 03:06 Lab Results 06/10/23 06/10/23 06/10/23 Range/Units 03:06 03:06 03:06 WBC 7.8 (3.8-10.6) k/uL RBC 4.47 (4.30-5.90) m/uL Hgb 11.6 L (13.0-17.5) gm/dL Hct 34.4 L (39.0-53.0) % MCV 77.0 L (80.0-100.0) fL MCH 26.0 (25.0-35.0) pg MCHC 33.8 (31.0-37.0) g/dL RDW 14.0 (11.5-15.5) % Plt Count 423 (150-450) k/uL MPV 7.3 Neutrophils % 41 % Lymphocytes % 43 % Monocytes % 7 % Eosinophils % 5 % Basophils % 1 % Neutrophils # 3.2 (1.3-7.7) k/uL Lymphocytes # 3.3 (1.0-4.8) k/uL Monocytes # 0.5 (0-1.0) k/uL Eosinophils # 0.4 (0-0.7) k/uL Basophils # 0.1 (0-0.2) k/uL Hypochromasia Slight PT 10.1 (10.0-12.5) sec INR 0.9 (<1.2) APTT 25.1 (22.0-30.0) sec D-Dimer <0.17 (<0.60) mg/L FEU Sodium (137-145) mmol/L Potassium (3.5-5.1) mmol/L Chloride (98-107) mmol/L Carbon Dioxide (22-30) mmol/L Anion Gap mmol/L BUN (9-20) mg/dL Creatinine (0.66-1.25) mg/dL Est GFR (CKD-EPI)AfAm (>60 ml/min/1.73 sqM) Est GFR (CKD-EPI)NonAf (>60 ml/min/1.73 sqM) Glucose (74-99) mg/dL Calcium (8.4-10.2) mg/dL Total Bilirubin (0.2-1.3) mg/dL AST (17-59) U/L ALT (4-49) U/L Alkaline Phosphatase (38-126) U/L Troponin I (0.000-0.034) ng/mL Total Protein (6.3-8.2) g/dL Albumin (3.5-5.0) g/dL Urine Color Urine Appearance (Clear) Urine pH (5.0-8.0) Ur Specific [place] (1.001-1.035) Urine Protein (Negative) Urine Glucose (UA) (Negative) Urine Ketones (Negative) Urine Blood (Negative) Urine Nitrite (Negative) Urine Bilirubin (Negative) Urine Urobilinogen (<2.0) mg/dL Ur Leukocyte Esterase (Negative) Influenza Type A (PCR) Not Detected (Not Detectd) Influenza Type B (PCR) Not Detected (Not Detectd) RSV (PCR) Not Detected (Not Detectd) SARS-CoV-2 (PCR) Not Detected (Not Detectd) 06/10/23 06/10/23 06/10/23 Range/Units 03:06 03:06 03:06 WBC (3.8-10.6) k/uL RBC (4.30-5.90) m/uL Hgb (13.0-17.5) gm/dL Hct (39.0-53.0) % MCV (80.0-100.0) fL MCH (25.0-35.0) pg MCHC (31.0-37.0) g/dL RDW (11.5-15.5) % Plt Count (150-450) k/uL MPV Neutrophils % % Lymphocytes % % Monocytes % % Eosinophils % % Basophils % % Neutrophils # (1.3-7.7) k/uL Lymphocytes # (1.0-4.8) k/uL Monocytes # (0-1.0) k/uL Eosinophils # (0-0.7) k/uL Basophils # (0-0.2) k/uL Hypochromasia PT (10.0-12.5) sec INR (<1.2) APTT (22.0-30.0) sec D-Dimer (<0.60) mg/L FEU Sodium 137 (137-145) mmol/L Potassium 3.6 (3.5-5.1) mmol/L Chloride 105 (98-107) mmol/L Carbon Dioxide 24 (22-30) mmol/L Anion Gap 8 mmol/L BUN 16 (9-20) mg/dL Creatinine 1.05 (0.66-1.25) mg/dL Est GFR (CKD-EPI)AfAm >90 (>60 ml/min/1.73 sqM) Est GFR (CKD-EPI)NonAf >90 (>60 ml/min/1.73 sqM) Glucose 110 H (74-99) mg/dL Calcium 8.8 (8.4-10.2) mg/dL Total Bilirubin 0.4 (0.2-1.3) mg/dL AST 29 (17-59) U/L ALT 34 (4-49) U/L Alkaline Phosphatase 52 (38-126) U/L Troponin I <0.012 (0.000-0.034) ng/mL Total Protein 6.6 (6.3-8.2) g/dL Albumin 4.1 (3.5-5.0) g/dL Urine Color Yellow Urine Appearance Clear (Clear) Urine pH 5.5 (5.0-8.0) Ur Specific [place] 1.035 (1.001-1.035) Urine Protein Trace H (Negative) Urine Glucose (UA) Negative (Negative) Urine Ketones Negative (Negative) Urine Blood Negative (Negative) Urine Nitrite Negative (Negative) Urine Bilirubin Negative (Negative) Urine Urobilinogen 2.0 (<2.0) mg/dL Ur Leukocyte Esterase Negative (Negative) Influenza Type A (PCR) (Not Detectd) Influenza Type B (PCR) (Not Detectd) RSV (PCR) (Not Detectd) SARS-CoV-2 (PCR) (Not Detectd) Disposition Clinical Impression: Hemoptysis Disposition: HOME SELF-CARE Condition: Good Instructions (If sedation given, give patient instructions): Iron Rich Diet (ED), Coughing Up Blood (Hemoptysis) (ED) Additional Instructions: Please return to the Emergency Department if symptoms worsen or any other co ncerns. Initiate iron supplementation. Follow up with your PCP. Is patient prescribed a controlled substance at d/c from ED?: No Referrals: Naresh Diamond MD [Primary Care Provider] - 1-2 days Time of Disposition: 04:47
[2023-06-10] MEDS ORDERED: ONDANSETRON 4 MG/2 ML VIAL IVP STA (03:08)
[2023-06-10 03:38] LABS: ALT 34 U/L (4-49); AST 29 U/L (17-59); African American GFR (CKD) >90 (>60 ml/min/1.73 sqM); Albumin 4.1 g/dL (3.5-5.0); Alkaline Phosphatase 52 U/L (38-126); Anion Gap 8 mmol/L; Blood Urea Nitrogen 16 mg/dL (9-20); Calcium 8.8 mg/dL (8.4-10.2); Carbon Dioxide 24 mmol/L (22-30); Chloride 105 mmol/L (98-107); Glucose 110 mg/dL (74-99); Non-African American GFR(CKD) >90 (>60 ml/min/1.73 sqM); Potassium 3.6 mmol/L (3.5-5.1); Sodium 137 mmol/L (137-145); Total Bilirubin 0.4 mg/dL (0.2-1.3); Total Protein 6.6 g/dL (6.3-8.2)
[2023-06-10 03:40] VITALS: RESP 18
[2023-06-10 03:54] LABS: Basophils # (A) 0.1 k/uL (0-0.2); Basophils % (A) 1 %; Eosinophils # (A) 0.4 k/uL (0-0.7); Eosinophils % (A) 5 %; HCT 34.4 % (39.0-53.0); HGB 11.6 gm/dL (13.0-17.5); Hypochromasia Slight; Lymphocytes # (A) 3.3 k/uL (1.0-4.8); Lymphocytes % (A) 43 %; MCHC 33.8 g/dL (31.0-37.0); Mean Platelet Volume 7.3; Monocytes # (A) 0.5 k/uL (0-1.0); Monocytes % (A) 7 %; Neutrophils # (A) 3.2 k/uL (1.3-7.7); Neutrophils % (A) 41 %; Platelet Count 423 k/uL (150-450); RBC 4.47 m/uL (4.30-5.90); WBC 7.8 k/uL (3.8-10.6)
[2023-06-10 04:11] LABS: INR 0.9 (<1.2); Partial Thromboplastin Time 25.1 sec (22.0-30.0); Prothrombin Time 10.1 sec (10.0-12.5)
[2023-06-10 04:13] LABS: Appearance,Urine Clear (Clear); Bilirubin,Urine Negative (Negative); Blood,Urine Negative (Negative); Color,Urine Yellow; Glucose,Urine (UA) Negative (Negative); Ketones,Urine Negative (Negative); Leukocyte Esterase,Urine Negative (Negative); Nitrite,Urine Negative (Negative); PH, Urine 5.5 (5.0-8.0); Protein,Urine Trace (Negative); Specific Gravity,Urine 1.035 (1.001-1.035)
[2023-06-10 05:59] VITALS: BP 136/82; PULSE 87; TEMP 98.2
--- NOTE | 2023-06-10 06:18 | XR ---
EXAMINATION TYPE: XR chest 2V DATE OF EXAM: 06/10/2023 COMPARISON: Chest x-ray July 23, 2022 HISTORY: Hemoptysis TECHNIQUE: Frontal and lateral views of the chest are obtained. FINDINGS: There is no suspicious new focal air space opacity, pleural effusion, or pneumothorax seen . The cardiac silhouette size is stable and within normal limits. The osseous structures are intac t. Overlying bilateral metallic nipple limits redemonstrated. IMPRESSION: No acute process. No significant change from prior.
== END 2023-06-10 05:15 | disposition home or self-care (01) ==
LOC: EC 02:43
DX: R04.2 Hemoptysis (principal); F12.90 Cannabis use, unspecified, uncomplicated; K21.9 Gastro-esophageal reflux disease without esophagitis; I10 Essential (primary) hypertension; Z86.59 Personal history of other mental and behavioral disorders; Z87.891 Personal history of nicotine dependence; Z79.899 Other long term (current) drug therapy; Z88.8 Allergy status to other drugs, medicaments and biological substances; Z20.822 Contact with and (suspected) exposure to COVID-19
CPT/HCPCS: 36415; 85379; 80053; 84484; 85025; 85610; 85730; 81003; 87636; 71046; 99284; 96374; J2405

== ENCOUNTER 2023-07-03 19:35 | Emergency (ER) | payer BC ==
[2023-07-03 19:56] VITALS: RESP 20; TEMP 98.8
--- NOTE | 2023-07-03 20:27 | XR ---
EXAMINATION TYPE: XR chest 2V DATE OF EXAM: 07/03/2023 8:07 PM CLINICAL INDICATION:Male, 28 years old with history of cough; [facility] COMPARISON: 06/10/2023 TECHNIQUE: XR chest 2V. Frontal and lateral views of the chest.. FINDINGS: Lines/Tubes/Devices: No indwelling lines are seen. Bilateral radiodensities consistent with body jewelry. Heart/mediastinum: Heart size is normal. Mediastinum appears normal. Mildly prominent nodular densi ty over the left hilar region, nonspecific; this could represent vascular shadow but other etiologies not excluded. Pulmonary vascularity: Not increased, Lungs/Pleura: There is no evidence of pleural effusion, focal consolidation, or pneumothorax. Musculoskeletal: No acute osseous abnormality demonstrated in the limits of the exam. Other findings: None. IMPRESSION: 1. No acute cardiopulmonary abnormality. 2. Mildly prominent nodular density over the left hilar region, nonspecific. Consider radiographic o r CT follow-up in 6-12 months.
--- NOTE | 2023-07-03 20:51 | ED ---
URI HPI - General Chief Complaint: Upper Respiratory Infection Stated Complaint: NALINI/chest pain, cough Time Seen by Provider: 07/03/23 19:44 Source: patient Mode of arrival: ambulatory Limitations: no limitations - History of Present Illness Initial Comments: 28-year-old male presenting with chief complaint of cough and congestion. Symptoms have been ongoing for the last week. Patient has some chest soreness with coughing. Patient has vomited from persistent coughing. He had diarrhea which has now resolved. No sinus pain, ear pain, difficulty breathing, weakness, palpitations, headache, neck pain, abdominal pain. - Related Data Home Medications Medication Instructions Recorded Confirmed Cetirizine HCl 10 mg PO DAILY 07/19/22 07/29/22 Ibuprofen [Motrin] 600 mg PO QID PRN 07/19/22 07/29/22 Pantoprazole [Protonix] 40 mg PO DAILY 07/19/22 07/29/22 Chlorhexidine Gluconate [Peridex] 15 ml PO BID 07/23/22 07/29/22 Multivitamins, Thera [Multivitamin 1 tab PO DAILY 07/23/22 07/29/22 (formulary)] [place]-3/Dha/Epa/Fish Oil [Fish Oil 1 cap PO DAILY 07/23/22 07/29/22 1,000 mg Softgel] Previous Rx's Medication Instructions Recorded Ondansetron Odt [Zofran Odt] 4 mg PO Q8HR PRN #10 tab 07/19/22 cefUROXime axetiL [Ceftin] 500 mg PO BID 10 Days #20 tab 07/19/22 Allergies Allergy/AdvReac Type Severity Reaction Status Date / Time clindamycin Allergy Rash/Hives Verified 07/03/23 19:42 pollen extracts Allergy Unknown Verified 07/03/23 19:42 wheat Allergy Unknown Verified 07/03/23 19:42 dust Allergy Unknown Uncoded 07/03/23 19:42 Review of Systems ROS Statement: Those systems with pertinent positive or pertinent negative responses have been documented in the HPI. ROS Other: All systems not noted in ROS Statement are negative. Past Medical History Past Medical History: GERD/Reflux, Hypertension Additional Past Medical History / Comment(s): SL HTN, RECENT RX GIVEN. CURRENT SCROTAL MASS. History of Any Multi-Drug Resistant Organisms: None Reported Past Surgical History: Ear Surgery Additional Past Surgical History / Comment(s): BMT. Sinus Surgery, scrotum surgery Past Anesthesia/Blood Transfusion Reactions: No Reported Reaction Past Psychological History: ADD/ADHD, Anxiety, Bipolar, Depression Smoking Status: Former smoker Past Alcohol Use History: None Reported Past Drug Use History: Marijuana - Past Family History Mother Family Medical History: No Reported History General Exam Limitations: no limitations General appearance: alert, in no apparent distress Head exam: Present: atraumatic, normocephalic Eye exam: Present: normal appearance ENT exam: Present: normal oropharynx, mucous membranes moist Neck exam: Present: normal inspection Respiratory exam: Present: normal lung sounds bilaterally. Absent: respiratory distress, wheezes, rales, rhonchi, stridor Cardiovascular Exam: Present: regular rate, normal rhythm, normal heart sounds. Absent: systolic murmur, diastolic murmur, rubs, gallop, clicks Neurological exam: Present: alert, oriented X3 Psychiatric exam: Present: normal affect, normal mood Skin exam: Present: warm, dry Course Vital Signs 07/03/23 07/03/23 19:40 21:01 Temperature 98.8 F 98.8 F Pulse Rate 108 H 70 Respiratory 20 20 Rate Blood Pressure 126/69 131/87 O2 Sat by Pulse 96 97 Oximetry Medical Decision Making - Medical Decision Making Was pt. sent in by a medical professional or institution ([facility], [facility], urgent care, hospital, or [facility]...) When possible be specific @ -No Did you speak to anyone other than the patient for history (EMS, parent, family, police, friend...)? What history was obtained from this source @ -No Did you review nursing and triage notes (agree or disagree)? Why? @ -I reviewed and agree with nursing and triage notes Were old charts reviewed (outside hosp., previous admission, EMS record, old EKG, old radiological studies, urgent care reports/EKG's, [facility] records)? Report findings @ -No old charts were reviewed Differential Diagnosis (chest pain, altered mental status, abdominal pain women, abdominal pain men, vaginal bleeding, weakness, fever, dyspnea, syncope, headache, dizziness, GI bleed, back pain, seizure, CVA, palpatations, mental health, musculoskeletal)? @ -Differential includes influenza, RSV, COVID, pneumonia, bronchitis, asthma, pneumothorax, this is not an all-inclusive list EKG interpreted by me (3pts min.). @ -As above X-rays interpreted by me (1pt min.). @ -X-ray shows no acute cardiopulmonary abnormality. Mildly prominent nodular density over the left hilar region, nonspecific. Consider radiographic or CT follow-up in [address] interpreted by me (1pt min.). @ -None done U/S interpreted by me (1pt. min.). @ -None done What testing was considered but not performed or refused? (CT, X-rays, U/S, labs)? Why? @ -None What meds were considered but not given or refused? Why? @ -None Did you discuss the management of the patient with other professionals (professionals i.e. , PA, [facility] [facility], lab, RT, psych nurse, social media marketing manager, customer service driver, teacher, school resource officer, briefcase sewer)? Give summary @ -No Was smoking cessation discussed for >3mins.? @ -No Was critical care preformed (if so, how long)? @ -No Were there social determinants of health that impacted care today? How? (Homelessness, low income, unemployed, alcoholism, drug addiction, transportation, low edu. Level, literacy, decrease access to med. care, [facility], rehab)? @ -No Was there de-escalation of care discussed even if they declined (Discuss DNR or withdrawal of care, Hospice)? DNR status @ -No What co-morbidities impacted this encounter? (DM, HTN, Smoking, COPD, CAD, Cancer, CVA, ARF, Chemo, Hep., AIDS, mental health diagnosis, sleep apnea, morbid obesity)? @ -None Was patient admitted / discharged? Hospital course, mention meds given and route, prescriptions, significant lab abnormalities, going to OR and other pertinent info. @ -28-year-old male presenting with chief complaint of cough and congestion ongoing for the last week. History and physical exam are conducted. Heart and lungs are clear to auscultation. Vital signs are stable. Patient is positive for influenza A. Negative for RSV and COVID. Chest x-ray shows no acute cardiopulmonary abnormality. Patient is educated on today's findings and supportive management at home. Discharged home. Follow-up with PCP. Report back to ER with any new or worsening symptoms. Discussed return parameters and answered all questions. Patient conveyed verbal understanding and agreed to the plan. I discussed this case in detail with my attending Dr. Sharif Undiagnosed new problem with uncertain prognosis? @ -No Drug Therapy requiring intensive monitoring for toxicity (Heparin, Nitro, Insulin, Cardizem)? @ -No Were any procedures done? @ -No Diagnosis/symptom? @ -Influenza A Acute, or Chronic, or Acute on Chronic? @ -Acute Uncomplicated (without systemic symptoms) or Complicated (systemic symptoms)? @ -Uncomplicated Side effects of treatment? @ -No Exacerbation, Progression, or Severe Exacerbation? @ -No Poses a threat to life or bodily function? How? (Chest pain, USA, [place], pneumonia, PE, COPD, DKA, ARF, appy, cholecystitis, CVA, Diverticulitis, Homicidal, Suicidal, threat to staff... and all critical care pts) @ -No - Lab Data Lab Results 07/03/23 Range/Units 19:56 Influenza Type A (PCR) Detected A (Not Detectd) Influenza Type B (PCR) Not Detected (Not Detectd) RSV (PCR) Not Detected (Not Detectd) SARS-CoV-2 (PCR) Not Detected (Not Detectd) Disposition Clinical Impression: Influenza Disposition: HOME SELF-CARE Condition: Good Instructions (If sedation given, give patient instructions): Influenza (ED) Additional Instructions: Follow-up with PCP. Report back to ER with any new or worsening symptoms. Take Motrin and Tylenol as needed for fever aches and pains. Is patient prescribed a controlled substance at d/c from ED?: No Referrals: Naresh Diamond MD [Primary Care Provider] - 1-2 days Time of Disposition: 20:51
[2023-07-03 21:21] VITALS: BP 131/87; PULSE 70
== END 2023-07-03 21:01 | disposition home or self-care (01) ==
LOC: EC 19:35
DX: J10.1 Influenza due to other identified influenza virus with other respiratory manifestations (principal); K21.9 Gastro-esophageal reflux disease without esophagitis; I10 Essential (primary) hypertension; F12.90 Cannabis use, unspecified, uncomplicated; Z79.899 Other long term (current) drug therapy; Z91.018 Allergy to other foods; Z88.8 Allergy status to other drugs, medicaments and biological substances; Z86.59 Personal history of other mental and behavioral disorders; Z87.891 Personal history of nicotine dependence; Z20.822 Contact with and (suspected) exposure to COVID-19
CPT/HCPCS: 71046; 87636; 99285

== ENCOUNTER 2023-07-07 17:20 | Emergency (ER) | payer BC ==
--- NOTE | 2023-07-07 17:36 | ED ---
URI HPI - General Source: patient, RN notes reviewed <Lainey Luis - Last Filed: 07/07/23 17:35> <Yaneth Schmidt - Last Filed: 07/08/23 04:14> - General Stated Complaint: congestion, pain in sinus cavity/headache Time Seen by Provider: 07/07/23 17:35 - History of Present Illness Initial Comments: Patient is a 28-year-old male presented ER with a chief complaint of congestion and nasal pain. Patient was recently diagnosed with influenza. He is concerned he has a sinus infection as he is having green nasal discharge. Denies any fevers, chills, shortness of breath, chest pain. (Lainey Luis) 28-year-old male presenting with chief complaint of sinus pain. Patient has been experiencing cough and sinus congestion for the last week. He is having green nasal discharge and cough is productive of green sputum. He was recently diagnosed with influenza. No fever, chills, chest pain, difficulty breathing, vision or hearing changes, numbness, tingling, weakness, dizziness, ear pain. (Yaneth Schmidt) - Related Data Home Medications Medication Instructions Recorded Confirmed Cetirizine HCl 10 mg PO DAILY 07/19/22 07/29/22 Ibuprofen [Motrin] 600 mg PO QID PRN 07/19/22 07/29/22 Pantoprazole [Protonix] 40 mg PO DAILY 07/19/22 07/29/22 Chlorhexidine Gluconate [Peridex] 15 ml PO BID 07/23/22 07/29/22 Multivitamins, Thera [Multivitamin 1 tab PO DAILY 07/23/22 07/29/22 (formulary)] [place]-3/Dha/Epa/Fish Oil [Fish Oil 1 cap PO DAILY 07/23/22 07/29/22 1,000 mg Softgel] Previous Rx's Medication Instructions Recorded Ondansetron Odt [Zofran Odt] 4 mg PO Q8HR PRN #10 tab 07/19/22 cefUROXime axetiL [Ceftin] 500 mg PO BID 10 Days #20 tab 07/19/22 Amoxic-Pot Clav 875-125Mg 1 tab PO Q12HR 7 Days #14 tab 07/07/23 [Augmentin 875-125] methylPREDNISolone Dose Pack 4 mg PO DIRECTED #1 packet 07/07/23 [Medrol Dose Pack] Allergies Allergy/AdvReac Type Severity Reaction Status Date / Time clindamycin Allergy Rash/Hives Verified 07/07/23 17:43 pollen extracts Allergy Unknown Verified 07/07/23 17:43 wheat Allergy Unknown Verified 07/07/23 17:43 dust Allergy Unknown Uncoded 07/07/23 17:43 Review of Systems ROS Other: All systems not noted in ROS Statement are negative. <Lainey Luis - Last Filed: 07/07/23 17:35> ROS Other: All systems not noted in ROS Statement are negative. <Yaneth Schmidt - Last Filed: 07/08/23 04:14> ROS Statement: Those systems with pertinent positive or pertinent negative responses have been documented in the HPI. Past Medical History Past Medical History: GERD/Reflux, Hypertension Additional Past Medical History / Comment(s): SL HTN, RECENT RX GIVEN. CURRENT SCROTAL MASS. History of Any Multi-Drug Resistant Organisms: None Reported Past Surgical History: Ear Surgery Additional Past Surgical History / Comment(s): BMT. Sinus Surgery, scrotum surgery Past Anesthesia/Blood Transfusion Reactions: No Reported Reaction Past Psychological History: ADD/ADHD, Anxiety, Bipolar, Depression Smoking Status: Former smoker Past Alcohol Use History: None Reported Past Drug Use History: Marijuana - Past Family History Mother Family Medical History: No Reported History <Lainey Luis - Last Filed: 07/07/23 17:35> General Exam <Lainey Luis - Last Filed: 07/07/23 17:35> Limitations: no limitations General appearance: alert, in no apparent distress Head exam: Present: atraumatic, normocephalic Eye exam: Present: normal appearance ENT exam: Present: other (Increased sinus pressure on palpation) Neck exam: Present: normal inspection Respiratory exam: Present: normal lung sounds bilaterally. Absent: respiratory distress, wheezes, rales, rhonchi, stridor Cardiovascular Exam: Present: regular rate, normal rhythm, normal heart sounds. Absent: systolic murmur, diastolic murmur, rubs, gallop, clicks Neurological exam: Present: alert, oriented X3 Psychiatric exam: Present: normal affect, normal mood Skin exam: Present: warm, dry <Yaneth Schmidt - Last Filed: 07/08/23 04:14> - General Exam Comments Initial Comments: Visual Physical Exam Vital signs reviewed General: Well-appearing, nontoxic, no acute distress. Head: Normocephalic, atraumatic Eyes: PERRLA, EOMI ENT: Airway patent Chest: Nonlabored breathing Skin: No visual rash, normal skin tone Neuro: Alert and oriented 3 Musculoskeletal: No gross abnormalities (Lainey Luis) Course Vital Signs 07/07/23 17:40 Temperature 98.7 F Pulse Rate 101 H Respiratory 18 Rate Blood Pressure 154/85 O2 Sat by Pulse 98 Oximetry Medical Decision Making <Lainey Luis - Last Filed: 07/07/23 17:35> <Yaneth Schmidt - Last Filed: 07/08/23 04:14> - Medical Decision Making I performed the quick note portion of the exam. Electronically signed by Lainey Luis PA-C (Lainey Luis) Was pt. sent in by a medical professional or institution ([facility], [employer], urgent care, hospital, or [facility]...) When possible be specific @ -No Did you speak to anyone other than the patient for history (EMS, parent, family, police, friend...)? What history was obtained from this source @ -No Did you review nursing and triage notes (agree or disagree)? Why? @ -I reviewed and agree with nursing and triage notes Were old charts reviewed (outside hosp., previous admission, EMS record, old EKG, old radiological studies, urgent care reports/EKG's, [facility] records)? Report findings @ -No old charts were reviewed Differential Diagnosis (chest pain, altered mental status, abdominal pain women, abdominal pain men, vaginal bleeding, weakness, fever, dyspnea, syncope, headache, dizziness, GI bleed, back pain, seizure, CVA, palpatations, mental hea lth, musculoskeletal)? @ -Differential includes sinusitis, migraine, tension headache, cluster headache, aneurysm, intracranial bleed, this is not an all-inclusive list EKG interpreted by me (3pts min.). @ -As above X-rays interpreted by me (1pt min.). @ -None done CT interpreted by me (1pt min.). @ -None done U/S interpreted by me (1pt. min.). @ -None done What testing was considered but not performed or refused? (CT, X-rays, U/S, labs)? Why? @ -None What meds were considered but not given or refused? Why? @ -None Did you discuss the management of the patient with other professionals (professionals i.e. , PA, SCRAP YARD WORKER, lab, RT, psych nurse, professor of social work, marine services technician, teacher, contact officer, case mgr)? Give summary @ -No Was smoking cessation discussed for >3mins.? @ -No Was critical care preformed (if so, how long)? @ -No Were there social determinants of health that impacted care today? How? (Homelessness, low income, unemployed, alcoholism, drug addiction, transportation, low edu. Level, literacy, decrease access to med. care, residential, rehab)? @ -No Was there de-escalation of care discussed even if they declined (Discuss DNR or withdrawal of care, Hospice)? DNR status @ -No What co-morbidities impacted this encounter? (DM, HTN, Smoking, COPD, CAD, Cancer, CVA, ARF, Chemo, Hep., AIDS, mental health diagnosis, sleep apnea, morbid obesity)? @ -None Was patient admitted / discharged? Hospital course, mention meds given and route, prescriptions, significant lab abnormalities, going to OR and other pertinent info. @ -28-year-old male present with chief complaint of sinus pain. Recently diagnosed with influenza A. He has been sick for the last week with increasing sinus pain and pressure for the last 2 days. History and physical exam were conducted. Chest x-ray shows no acute process. Given that the patient has been sick for the last week, I will treat him for sinusitis with Augmentin. Educated on today's findings and treatment plan. Discharged home. Follow-up with PCP. Report back to ER with any new or worsening symptoms. Discussed return parameters and answered all questions. Patient conveyed verbal understanding and agreed to the plan. I discussed this case in detail with my attending Dr. Iglesias Undiagnosed new problem with uncertain prognosis? @ -No Drug Therapy requiring intensive monitoring for toxicity (Heparin, Nitro, Insulin, Cardizem)? @ -No Were any procedures done? @ -No Diagnosis/symptom? @ -Sinusitis Acute, or Chronic, or Acute on Chronic? @ -Acute Uncomplicated (without systemic symptoms) or Complicated (systemic symptoms)? @ -Uncomplicated Side effects of treatment? @ -No Exacerbation, Progression, or Severe Exacerbation? @ -No Poses a threat to life or bodily function? How? (Chest pain, [place], [place], pneumonia, PE, COPD, DKA, ARF, appy, cholecystitis, CVA, Diverticulitis, Homicidal, Suicidal, threat to staff... and all critical care pts) @ -No (Yaneth Schmidt) Disposition <Lainey Luis - Last Filed: 07/07/23 17:35> Is patient prescribed a controlled substance at d/c from ED?: No Time of Disposition: 19:41 <Yaneth Schmidt - Last Filed: 07/08/23 04:14> Clinical Impression: Sinusitis Disposition: HOME SELF-CARE Condition: Good Instructions (If sedation given, give patient instructions): Sinusitis (ED) Additional Instructions: Follow-up with PCP. Report back to ER with any new or worsening symptoms. Prescriptions: Amoxic-Pot Clav 875-125Mg [Augmentin 875-125] 1 tab PO Q12HR 7 Days #14 tab methylPREDNISolone Dose Pack [Medrol Dose Pack] 4 mg PO DIRECTED #1 packet Referrals: Naresh Diamond MD [Primary Care Provider] - 1-2 days
[2023-07-07 17:57] VITALS: BP 154/85; PULSE 101; RESP 18; TEMP 98.7
--- NOTE | 2023-07-07 18:59 | XR ---
EXAMINATION TYPE: XR chest 2V DATE OF EXAM: 07/07/2023 COMPARISON: 07/03/2023 HISTORY: 28-year-old male congestion and cough TECHNIQUE: PA and lateral views FINDINGS: The cardiomediastinal silhouette, aorta, and pulmonary vasculature are within normal limits. Hyperinf lation likely relates to depth of inspiration. Bilateral nipple bars. Lungs and pleural spaces are cl ear. IMPRESSION: No acute cardiopulmonary process.
[2023-07-07] MEDS: AMOXIC-POT CLAV 875-125MG 1 EACH TAB PO STA (19:50)
== END 2023-07-07 20:00 | disposition home or self-care (01) ==
LOC: EC 17:20
DX: J32.9 Chronic sinusitis, unspecified (principal); I10 Essential (primary) hypertension; K21.9 Gastro-esophageal reflux disease without esophagitis; F12.90 Cannabis use, unspecified, uncomplicated; Z79.899 Other long term (current) drug therapy; Z87.891 Personal history of nicotine dependence; Z88.1 Allergy status to other antibiotic agents; Z91.018 Allergy to other foods; Z91.09 Other allergy status, other than to drugs and biological substances
CPT/HCPCS: 71046; 99284

== ENCOUNTER 2023-07-19 09:03 | Day surgery (SDC) | payer BC ==
[2023-07-19] MEDS: LACTATED RINGERS 1,000 ML IV SCH (09:53)
[2023-07-19 10:17] VITALS: PULSE 89; TEMP 97.1
[2023-07-19] MEDS ORDERED: LIDOCAINE 1% INJ 10MG/ML (20 ML MDV) ONE (10:28)
[2023-07-19] MEDS ORDERED: PROPOFOL 10 MG/ML 20 ML VIAL IV ONE (10:28)
--- NOTE | 2023-07-19 10:49 | P.PCN ---
Date of Procedure: 07/19/23 Procedure(s) Performed: BRIEF HISTORY: Patient is a 28-year-old, pleasant, white male scheduled for an upper endoscopy as a part of evaluation of long-standing history of GERD for the last several months duration. His been started on Protonix 40 mg twice daily and Pepcid at bedtime and symptoms are gradually improving he scheduled for an upper endoscopy to rule out complicated reflux disease. PROCEDURE PERFORMED: Esophagogastroduodenoscopy with biopsy. PREOPERATIVE DIAGNOSIS: Long-standing history of GERD. IV sedation per anesthesia. PROCEDURE: After informed consent was obtained, the patient was brought into the endoscopy unit. IV sedation was administered by Anesthesia under continuous monitoring. Initially the Olympus GIF-140 video endoscope was inserted into the mouth. Esophagus intubated without any difficulty. It was gradually advanced into the stomach and duodenum and carefully examined. The bulb and the second part of the duodenum appeared normal. The scope at this time was withdrawn to the stomach, adequately insufflated with air, and upon careful examination, mucosa of the antrum, body, cardia and the fundus appeared normal. The scope was then withdrawn into the esophagus. Small to moderate size sessile hernia noted. The GE junction was located at 39 cm from the incisors. There was long segment of Starr's esophagus extending from 30-39 cm from the incisors and multiple biopsies were done from this area. In the distal Starr's metaplasia centimeters from the incisors there were 2 superficial ulcerations identified measuring 5 mm and 1 cm in size which were also biopsied. Just proximal to the Starr's esophagus there were linear erosions and ulcerations consistent with LA grade C reflux esophagitis. The proximal esophagus appeared normal and the patient tolerated the procedure well. IMPRESSION: 1. Long segment Starr's esophagus extending from 30-39 cm from the incisors with no ulcerations noted in the distal esophagus at 38 cm from the incisors status post multiple biopsies. 2. Small to moderate size hiatal hernia 3. Superficial Erosions and one ulcerations in the midesophagus extending from 26-30 cm from the incisors consistent with LA grade C reflux esophagitis. RECOMMENDATIONS: The findings of this examination were discussed with the patient as well as his family. He was advised to follow with the biopsy results. In the meantime he will continue Protonix 40 mg twice daily half hour before breakfast and dinnertime and Pepcid at bedtime and follow antireflux measures. Follow up in office in 3-4 weeks..
[2023-07-19 11:21] VITALS: BP 133/86; RESP 18
== END 2023-07-19 11:26 | disposition home or self-care (01) ==
LOC: ORWHC2ENDO 09:03
PROVIDERS: ATTEND Internal Medicine Gastroenterology
DX: K29.50 Unspecified chronic gastritis without bleeding (principal); K31.A0 Gastric intestinal metaplasia, unspecified; K44.9 Diaphragmatic hernia without obstruction or gangrene; K21.00 Gastro-esophageal reflux disease with esophagitis, without bleeding; E78.5 Hyperlipidemia, unspecified; F90.9 Attention-deficit hyperactivity disorder, unspecified type; F41.9 Anxiety disorder, unspecified; F31.9 Bipolar disorder, unspecified; Z91.048 Other nonmedicinal substance allergy status; Z88.8 Allergy status to other drugs, medicaments and biological substances; Z88.1 Allergy status to other antibiotic agents; Z79.899 Other long term (current) drug therapy; Z98.890 Other specified postprocedural states
CPT/HCPCS: 88305; 88312; 88342; 43239; J2001; J2704

== ENCOUNTER 2023-10-11 19:38 | Emergency (ER) | payer BC ==
[2023-10-11 20:10] VITALS: RESP 18
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
[2023-10-11 22:33] VITALS: BP 144/89; PULSE 99; TEMP 98.8
== END 2023-10-11 22:04 | disposition home or self-care (01) ==
LOC: EC 19:38
DX: M25.511 Pain in right shoulder (principal); F12.90 Cannabis use, unspecified, uncomplicated; Z87.890 Personal history of sex reassignment; Z88.1 Allergy status to other antibiotic agents; Z88.8 Allergy status to other drugs, medicaments and biological substances; V89.2XXA Person injured in unspecified motor-vehicle accident, traffic, initial encounter; Y92.410 Unspecified street and highway as the place of occurrence of the external cause
CPT/HCPCS: 70450; 72125; 99284

== ENCOUNTER 2024-02-25 06:01 | Emergency (ER) | payer BC, OTHER ==
[2024-02-25 06:08] VITALS: RESP 20; TEMP 97.8
--- NOTE | 2024-02-25 06:32 | ED ---
General Adult HPI - General Chief complaint: Nausea/Vomiting/Diarrhea Stated complaint: Hematemesis Time Seen by Provider: 02/25/24 06:04 Source: patient, RN notes reviewed Mode of arrival: ambulatory Limitations: no limitations - History of Present Illness Initial comments: 28 year old male presents to the emergency department with chief complaint of he matemesis that started about thirty minutes ago. In August he had an upper GI study which showed Abilio's esophagus for which he was started on protonix and pepcid. Since August he has had relatively no symptoms. This morning he reports waking up with extreme nausea, dea red hematemesis, right sided throat pain, and left upper quadrant pain. He also reports diarrhea for the last couple of days that contains mucous, but without blood. He denies fever, chills, chest pain, and shortness of breath. He also states that before the nausea and vomiting started this morning, he was able to drink fluids and eat without any difficulty. - Related Data Home Medications Medication Instructions Recorded Confirmed Pantoprazole [Protonix] 40 mg PO BID 07/19/22 07/19/23 Atorvastatin [Lipitor] 40 mg PO DAILY 07/15/23 07/19/23 Famotidine [Pepcid] 20 mg PO HS 07/15/23 07/19/23 Azithromycin [Zithromax] 500 mg PO DIRECTED 07/18/23 07/19/23 Doxycycline [Vibramycin] 100 mg PO BID 07/18/23 07/19/23 Previous Rx's Medication Instructions Recorded Metoclopramide [Reglan] 10 mg PO HS PRN #15 tab 02/25/24 Ondansetron Odt [Zofran Odt] 4 mg PO Q8HR PRN #10 tab 02/25/24 Allergies Allergy/AdvReac Type Severity Reaction Status Date / Time clindamycin Allergy Rash/Hives Verified 02/25/24 06:07 pollen extracts Allergy Unknown Verified 02/25/24 06:07 wheat Allergy Unknown Verified 02/25/24 06:07 dust Allergy Unknown Uncoded 02/25/24 06:07 Review of Systems ROS Statement: Those systems with pertinent positive or pertinent negative responses have been documented in the HPI. ROS Other: All systems not noted in ROS Statement are negative. Past Medical History Past Medical History: GERD/Reflux, Hyperlipidemia, Hypertension Additional Past Medical History / Comment(s): indigestion recently, trey. @night, stuff comes up back of throat & wakes him up, has had some bouts of BP being elevated but has never taken medication, recent flu & sinus infection-just finished A/B & steroids, feeling better History of Any Multi-Drug Resistant Organisms: None Reported Past Surgical History: Ear Surgery Additional Past Surgical History / Comment(s): BMT. Sinus Surgery, scrotum surgery for benign mass Past Anesthesia/Blood Transfusion Reactions: No Reported Reaction Past Psychological History: ADD/ADHD, Anxiety, Bipolar, Depression Smoking Status: Current every day smoker Past Alcohol Use History: None Reported Past Drug Use History: Marijuana - Past Family History Mother Family Medical History: No Reported History General Exam Limitations: no limitations General appearance: alert, in no apparent distress Eye exam: Present: normal appearance, PERRL, EOMI. Absent: scleral icterus, conjunctival injection, periorbital swelling ENT exam: Present: normal exam, mucous membranes moist Neck exam: Present: normal inspection. Absent: tenderness, meningismus, lymphadenopathy Respiratory exam: Present: normal lung sounds bilaterally. Absent: respiratory distress, wheezes, rales, rhonchi, stridor Cardiovascular Exam: Present: regular rate, normal rhythm, normal heart sounds. Absent: systolic murmur, diastolic murmur, rubs, gallop, clicks GI/Abdominal exam: Present: soft, tenderness (Very minimal epigastric), normal bowel sounds. Absent: distended, guarding, rebound, rigid Back exam: Absent: CVA tenderness (R) Course Vital Signs 02/25/24 06:05 Temperature 97.8 F Pulse Rate 118 H Respiratory 20 Rate Blood Pressure 171/102 O2 Sat by Pulse 98 Oximetry EKG Findings - EKG Comments: EKG Findings:: EKG fornices: 50 sinus rhythm with a rate of 68 NC 132 QRS 102 QT/QTc 345/361 - EKG Results: EKG: interpreted by ERMD Medical Decision Making - Medical Decision Making Was pt. sent in by a medical professional or institution (, PA, MISSIONARY COORDINATOR, urgent care, hospital, or fci...) When possible be specific @ -No Did you speak to anyone other than the patient for history (EMS, parent, family, police, friend...)? What history was obtained from this source @ -No Did you review nursing and triage notes (agree or disagree)? Why? @ -I reviewed and agree with nursing and triage notes Were old charts reviewed (outside hosp., previous admission, EMS record, old EKG, old radiological studies, urgent care reports/EKG's, fci records)? Report findings @ -No old charts were reviewed Differential Diagnosis (chest pain, altered mental status, abdominal pain women, abdominal pain men, vaginal bleeding, weakness, fever, dyspnea, syncope, headache, dizziness, GI bleed, back pain, seizure, CVA, palpatations, mental health, musculoskeletal)? @ -Differential Abdominal Pain Men: Appendicitis, cholecystitis, diverticulosis, ischemic bowel, pancreatitis, hepatitis, UTI, gastroenteritis, AAA, incarcerated hernia, bowel obstruction, constipation, inflammatory bowel, hepatitis, peptic ulcer disease, splenic infarction, perforated viscus, testicular torsion, this is not meant to be an all-inclusive list EKG interpreted by me (3pts min.). @ -As above X-rays interpreted by me (1pt min.). @ -None done CT interpreted by me (1pt min.). @ -None done U/S interpreted by me (1pt. min.). @ -None done What testing was considered but not performed or refused? (CT, X-rays, U/S, labs)? Why? @ -None What meds were considered but not given or refused? Why? @ -None Did you discuss the management of the patient with other professionals (professionals i.e. , PA, MISSIONARY COORDINATOR, lab, RT, psych nurse, hospice social worker, corrugated fastener driver, teacher, parking enforcement officer, skilled nursing case manager)? Give summary @ -No Was smoking cessation discussed for >3mins.? @ -No Was critical care preformed (if so, how long)? @ -No Were there social determinants of health that impacted care today? How? (Homelessness, low income, unemployed, alcoholism, drug addiction, transportation, low edu. Level, literacy, decrease access to med. care, snf, rehab)? @ -No Was there de-escalation of care discussed even if they declined (Discuss DNR or withdrawal of care, Hospice)? DNR status @ -No What co-morbidities impacted this encounter? (DM, HTN, Smoking, COPD, CAD, Cancer, CVA, ARF, Chemo, Hep., AIDS, mental health diagnosis, sleep apnea, morbid obesity)? @ -Matty's esophagus, GERD Was patient admitted / discharged? Hospital course, mention meds given and route, prescriptions, significant lab abnormalities, going to OR and other pertinent info. @ -This charge patient feels greatly improved after antiemetics and IV fluids. Patient does admit to eating, drinking will eat in the evening prior to bed. This is worsened his known GERD. We discussed tricked dietary changes will be given antiemetics and will follow-up with his GI physician Dr. Lira. Undiagnosed new problem with uncertain prognosis? @ -No Drug Therapy requiring intensive monitoring for toxicity (Heparin, Nitro, Insulin, Cardizem)? @ -No Were any procedures done? @ -No Diagnosis/symptom? @ -Gastritis, GERD, nausea vomiting Acute, or Chronic, or Acute on Chronic? @ -Acute Uncomplicated (without systemic symptoms) or Complicated (systemic symptoms)? @ -Complicated Side effects of treatment? @ -No Exacerbation, Progression, or Severe Exacerbation? @ -No Poses a threat to life or bodily function? How? (Chest pain, [place], [place], pneumonia, PE, COPD, DKA, ARF, appy, cholecystitis, CVA, Diverticulitis, Homicidal, Suicidal, threat to staff... and all critical care pts) @ -No - Lab Data Result diagrams: 02/25/24 06:45 02/25/24 06:45 Lab Results 02/25/24 02/25/24 Range/Units 06:45 06:45 WBC 7.1 (3.8-10.6) k/uL RBC 5.74 (4.30-5.90) m/uL Hgb 14.0 (13.0-17.5) gm/dL Hct 43.1 (39.0-53.0) % MCV 75.2 L (80.0-100.0) fL MCH 24.3 L (25.0-35.0) pg MCHC 32.3 (31.0-37.0) g/dL RDW 19.3 H (11.5-15.5) % Plt Count 369 (150-450) k/uL MPV 7.5 Neutrophils % 53 % Lymphocytes % 34 % Monocytes % 7 % Eosinophils % 4 % Basophils % 1 % Neutrophils # 3.7 (1.3-7.7) k/uL Lymphocytes # 2.4 (1.0-4.8) k/uL Monocytes # 0.5 (0-1.0) k/uL Eosinophils # 0.3 (0-0.7) k/uL Basophils # 0.0 (0-0.2) k/uL Anisocytosis Slight Microcytosis Moderate Sodium 138 (137-145) mmol/L Potassium 4.4 (3.5-5.1) mmol/L Chloride 102 (98-107) mmol/L Carbon Dioxide 26 (22-30) mmol/L Anion Gap 10 mmol/L BUN 13 (9-20) mg/dL Creatinine 1.08 (0.66-1.25) mg/dL Est GFR (CKD-EPI)AfAm >90 (>60 ml/min/1.73 sqM) Est GFR (CKD-EPI)NonAf >90 (>60 ml/min/1.73 sqM) Glucose 111 H (74-99) mg/dL Calcium 10.1 (8.4-10.2) mg/dL Total Bilirubin 0.7 (0.2-1.3) mg/dL AST 40 (17-59) U/L ALT 37 (4-49) U/L Alkaline Phosphatase 38 (38-126) U/L Total Protein 7.8 (6.3-8.2) g/dL Albumin 4.8 (3.5-5.0) g/dL Amylase 63 (30-110) U/L Lipase 110 (23-300) U/L Disposition Clinical Impression: Gastritis, GERD (gastroesophageal reflux disease), Nausea & vomiting Disposition: HOME SELF-CARE Condition: Stable Instructions (If sedation given, give patient instructions): Gastritis (ED), Diet for Stomach Ulcers and Gastritis (ED) Additional Instructions: Please return to the Emergency Department if symptoms worsen or any other concerns. Prescriptions: Metoclopramide [Reglan] 10 mg PO HS PRN #15 tab PRN Reason: Nausea Ondansetron Odt [Zofran Odt] 4 mg PO Q8HR PRN #10 tab PRN Reason: Nausea Is patient prescribed a controlled substance at d/c from ED?: No Referrals: Naresh Diamond MD [Primary Care Provider] - 1-2 days Time of Disposition: 07:39
[2024-02-25] MEDS: ONDANSETRON 4 MG/2 ML VIAL IVP STA (06:54)
[2024-02-25] MEDS: SODIUM CHLORIDE 0.9% 1,000 ML IV STA (06:54)
[2024-02-25] MEDS: PANTOPRAZOLE 40 MG/10 ML VIAL IVP STA (06:54)
[2024-02-25 07:07] LABS: Anisocytosis Slight; Basophils % (A) 1 %; Eosinophils # (A) 0.3 k/uL (0-0.7); Eosinophils % (A) 4 %; HCT 43.1 % (39.0-53.0); Lymphocytes # (A) 2.4 k/uL (1.0-4.8); Lymphocytes % (A) 34 %; MCH 24.3 pg (25.0-35.0); MCHC 32.3 g/dL (31.0-37.0); MCV 75.2 fL (80.0-100.0); Mean Platelet Volume 7.5; Microcytosis Moderate; Monocytes # (A) 0.5 k/uL (0-1.0); Monocytes % (A) 7 %; Neutrophils # (A) 3.7 k/uL (1.3-7.7); Neutrophils % (A) 53 %; Platelet Count 369 k/uL (150-450); RBC 5.74 m/uL (4.30-5.90); RDW 19.3 % (11.5-15.5); WBC 7.1 k/uL (3.8-10.6)
[2024-02-25 07:22] LABS: ALT 37 U/L (4-49); African American GFR (CKD) >90 (>60 ml/min/1.73 sqM); Albumin 4.8 g/dL (3.5-5.0); Amylase 63 U/L (30-110); Anion Gap 10 mmol/L; Blood Urea Nitrogen 13 mg/dL (9-20); Calcium 10.1 mg/dL (8.4-10.2); Carbon Dioxide 26 mmol/L (22-30); Chloride 102 mmol/L (98-107); Glucose 111 mg/dL (74-99); Lipase 110 U/L (23-300); Non-African American GFR(CKD) >90 (>60 ml/min/1.73 sqM); Sodium 138 mmol/L (137-145); Total Bilirubin 0.7 mg/dL (0.2-1.3); Total Protein 7.8 g/dL (6.3-8.2)
[2024-02-25 07:26] LABS: AST 40 U/L (17-59); Alkaline Phosphatase 38 U/L (38-126); Potassium 4.4 mmol/L (3.5-5.1)
[2024-02-25 07:49] VITALS: BP 142/89; PULSE 78
== END 2024-02-25 07:48 | disposition home or self-care (01) ==
LOC: EC 06:01
CPT/HCPCS: 36415; 80053; 82150; 83690; 85025; 93005; 96361; 96374; 96375; 99284

== ENCOUNTER 2024-03-05 17:50 | Emergency (ER) | payer BC ==
[2024-03-05 18:05] VITALS: TEMP 98.6
[2024-03-05 18:24] VITALS: RESP 20
[2024-03-05 18:47] LABS: Anisocytosis Slight; Basophils % (A) 0 %; Eosinophils # (A) 0.3 k/uL (0-0.7); Eosinophils % (A) 4 %; Lymphocytes # (A) 2.6 k/uL (1.0-4.8); Lymphocytes % (A) 36 %; MCH 24.8 pg (25.0-35.0); MCHC 33.4 g/dL (31.0-37.0); MCV 74.4 fL (80.0-100.0); Mean Platelet Volume 7.3; Microcytosis Moderate; Monocytes # (A) 0.2 k/uL (0-1.0); Monocytes % (A) 3 %; Neutrophils % (A) 55 %; Platelet Count 330 k/uL (150-450); RBC 5.24 m/uL (4.30-5.90); RDW 18.6 % (11.5-15.5); WBC 7.3 k/uL (3.8-10.6)
[2024-03-05 18:54] LABS: ALT 26 U/L (4-49); AST 29 U/L (17-59); African American GFR (CKD) >90 (>60 ml/min/1.73 sqM); Albumin 4.7 g/dL (3.5-5.0); Alkaline Phosphatase 32 U/L (38-126); Anion Gap 11 mmol/L; Blood Urea Nitrogen 12 mg/dL (9-20); Calcium 9.7 mg/dL (8.4-10.2); Carbon Dioxide 24 mmol/L (22-30); Chloride 105 mmol/L (98-107); Glucose 143 mg/dL (74-99); Non-African American GFR(CKD) >90 (>60 ml/min/1.73 sqM); Potassium 3.8 mmol/L (3.5-5.1); Sodium 140 mmol/L (137-145); Total Bilirubin 0.6 mg/dL (0.2-1.3); Total Protein 7.2 g/dL (6.3-8.2)
[2024-03-05 18:58] LABS: Partial Thromboplastin Time 25.1 sec (22.0-30.0); Prothrombin Time 10.9 sec (10.0-12.5)
--- NOTE | 2024-03-05 20:50 | ED ---
SOB HPI - General Chief Complaint: Shortness of Breath Stated Complaint: SOB Time Seen by Provider: 03/05/24 18:07 Source: patient Mode of arrival: ambulatory Limitations: no limitations - Related Data Home Medications Medication Instructions Recorded Confirmed Pantoprazole [Protonix] 40 mg PO BID 07/19/22 07/19/23 Atorvastatin [Lipitor] 40 mg PO DAILY 07/15/23 07/19/23 Famotidine [Pepcid] 20 mg PO HS 07/15/23 07/19/23 Azithromycin [Zithromax] 500 mg PO DIRECTED 07/18/23 07/19/23 Doxycycline [Vibramycin] 100 mg PO BID 07/18/23 07/19/23 Previous Rx's Medication Instructions Recorded Metoclopramide [Reglan] 10 mg PO HS PRN #15 tab 02/25/24 Ondansetron Odt [Zofran Odt] 4 mg PO Q8HR PRN #10 tab 02/25/24 Allergies Allergy/AdvReac Type Severity Reaction Status Date / Time clindamycin Allergy Rash/Hives Verified 03/05/24 18:06 pollen extracts Allergy Unknown Verified 03/05/24 18:06 wheat Allergy Unknown Verified 03/05/24 18:06 dust Allergy Unknown Uncoded 03/05/24 18:06 Review of Systems ROS Statement: Those systems with pertinent positive or pertinent negative responses have been documented in the HPI. ROS Other: All systems not noted in ROS Statement are negative. Past Medical History Past Medical History: GERD/Reflux, Hyperlipidemia, Hypertension Additional Past Medical History / Comment(s): indigestion recently, trey. @night, stuff comes up back of throat & wakes him up, has had some bouts of BP being elevated but has never taken medication, recent flu & sinus infection-just finished A/B & steroids, feeling better History of Any Multi-Drug Resistant Organisms: None Reported Past Surgical History: Ear Surgery Additional Past Surgical History / Comment(s): BMT. Sinus Surgery, scrotum surgery for benign mass Past Anesthesia/Blood Transfusion Reactions: No Reported Reaction Past Psychological History: ADD/ADHD, Anxiety, Depression Smoking Status: Vaper Past Alcohol Use History: None Reported Past Drug Use History: Marijuana - Past Family History Mother Family Medical History: No Reported History General Exam Limitations: no limitations Course Vital Signs 03/05/24 03/05/24 18:03 18:12 Temperature 98.6 F Pulse Rate 115 H Respiratory 28 H 20 Rate Blood Pressure 142/82 O2 Sat by Pulse 94 L Oximetry Medical Decision Making - Lab Data Result diagrams: 03/05/24 18:30 03/05/24 18:30 Lab Results 03/05/24 03/05/24 03/05/24 Range/Units 18:30 18:30 18:30 WBC 7.3 (3.8-10.6) k/uL RBC 5.24 (4.30-5.90) m/uL Hgb 13.0 (13.0-17.5) gm/dL Hct 39.0 (39.0-53.0) % MCV 74.4 L (80.0-100.0) fL MCH 24.8 L (25.0-35.0) pg MCHC 33.4 (31.0-37.0) g/dL RDW 18.6 H (11.5-15.5) % Plt Count 330 (150-450) k/uL MPV 7.3 Neutrophils % 55 % Lymphocytes % 36 % Monocytes % 3 % Eosinophils % 4 % Basophils % 0 % Neutrophils # 4.0 (1.3-7.7) k/uL Lymphocytes # 2.6 (1.0-4.8) k/uL Monocytes # 0.2 (0-1.0) k/uL Eosinophils # 0.3 (0-0.7) k/uL Basophils # 0.0 (0-0.2) k/uL Anisocytosis Slight Microcytosis Moderate PT 10.9 (10.0-12.5) sec INR 1.0 (<1.2) APTT 25.1 (22.0-30.0) sec D-Dimer <0.17 (<0.60) mg/L FEU Sodium 140 (137-145) mmol/L Potassium 3.8 (3.5-5.1) mmol/L Chloride 105 (98-107) mmol/L Carbon Dioxide 24 (22-30) mmol/L Anion Gap 11 mmol/L BUN 12 (9-20) mg/dL Creatinine 0.99 (0.66-1.25) mg/dL Est GFR (CKD-EPI)AfAm >90 (>60 ml/min/1.73 sqM) Est GFR (CKD-EPI)NonAf >90 (>60 ml/min/1.73 sqM) Glucose 143 H (74-99) mg/dL Plasma Lactic Acid Jesse (0.7-2.0) mmol/L Calcium 9.7 (8.4-10.2) mg/dL Total Bilirubin 0.6 (0.2-1.3) mg/dL AST 29 (17-59) U/L ALT 26 (4-49) U/L Alkaline Phosphatase 32 L (38-126) U/L Troponin I (0.000-0.034) ng/mL Total Protein 7.2 (6.3-8.2) g/dL Albumin 4.7 (3.5-5.0) g/dL Influenza Type A (PCR) (Not Detectd) Influenza Type B (PCR) (Not Detectd) RSV (PCR) (Not Detectd) SARS-CoV-2 (PCR) (Not Detectd) 03/05/24 03/05/24 03/05/24 Range/Units 18:30 18:30 18:30 WBC (3.8-10.6) k/uL RBC (4.30-5.90) m/uL Hgb (13.0-17.5) gm/dL Hct (39.0-53.0) % MCV (80.0-100.0) fL MCH (25.0-35.0) pg MCHC (31.0-37.0) g/dL RDW (11.5-15.5) % Plt Count (150-450) k/uL MPV Neutrophils % % Lymphocytes % % Monocytes % % Eosinophils % % Basophils % % Neutrophils # (1.3-7.7) k/uL Lymphocytes # (1.0-4.8) k/uL Monocytes # (0-1.0) k/uL Eosinophils # (0-0.7) k/uL Basophils # (0-0.2) k/uL Anisocytosis Microcytosis PT (10.0-12.5) sec INR (<1.2) APTT (22.0-30.0) sec D-Dimer (<0.60) mg/L FEU Sodium (137-145) mmol/L Potassium (3.5-5.1) mmol/L Chloride (98-107) mmol/L Carbon Dioxide (22-30) mmol/L Anion Gap mmol/L BUN (9-20) mg/dL Creatinine (0.66-1.25) mg/dL Est GFR (CKD-EPI)AfAm (>60 ml/min/1.73 sqM) Est GFR (CKD-EPI)NonAf (>60 ml/min/1.73 sqM) Glucose (74-99) mg/dL Plasma Lactic Acid Jesse 2.0 (0.7-2.0) mmol/L Calcium (8.4-10.2) mg/dL Total Bilirubin (0.2-1.3) mg/dL AST (17-59) U/L ALT (4-49) U/L Alkaline Phosphatase (38-126) U/L Troponin I <0.012 (0.000-0.034) ng/mL Total Protein (6.3-8.2) g/dL Albumin (3.5-5.0) g/dL Influenza Type A (PCR) Not Detected (Not Detectd) Influenza Type B (PCR) Not Detected (Not Detectd) RSV (PCR) Not Detected (Not Detectd) SARS-CoV-2 (PCR) Not Detected (Not Detectd) Disposition Clinical Impression: Shortness of breath Disposition: HOME SELF-CARE Condition: Stable Instructions (If sedation given, give patient instructions): Shortness of Breath (ED) Additional Instructions: Please follow-up with your primary care doctor for reevaluation of your symptoms and return for any new or worsening symptoms Is patient prescribed a controlled substance at d/c from ED?: No Referrals: Naresh Diamond MD [Primary Care Provider] - 1-2 days Time of Disposition: 20:50
[2024-03-05 20:52] VITALS: BP 135/60; PULSE 100
--- NOTE | 2024-03-06 01:31 | XR ---
EXAMINATION TYPE: XR chest 2V DATE OF EXAM: 03/05/2024 6:32 PM CLINICAL INDICATION:Male, 28 years old with history of difficulty breathing; [facility] COMPARISON: 07/07/2023 TECHNIQUE: XR chest 2V. Frontal and lateral views of the chest.. FINDINGS: Lines/Tubes/Devices: No indwelling lines are seen. Bilateral nipple jewelry. Heart/mediastinum: Heart size is normal. Mediastinum appears normal. Pulmonary vascularity: Not increased, Lungs/Pleura: There is no evidence of pleural effusion, focal consolidation, or pneumothorax. Musculoskeletal: No acute osseous abnormality demonstrated in the limits of the exam. Other findings: None. IMPRESSION: No acute cardiopulmonary abnormality. [facility], , 03/06/2024 1:29 AM
== END 2024-03-05 20:53 | disposition home or self-care (01) ==
LOC: EC 17:50
CPT/HCPCS: 36415; 71046; 80053; 83605; 84484; 85025; 85379; 85610; 85730; 87636; 99285

== ENCOUNTER → 2024-08-03 | Outpatient (CLI) | payer OTHER ==
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
== END | disposition home or self-care (01) ==
LOC: RADMRIMAIN 06:36
PROVIDERS: ATTEND Family Medicine
DX: M51.17 Intervertebral disc disorders with radiculopathy, lumbosacral region (principal); M47.27 Other spondylosis with radiculopathy, lumbosacral region
CPT/HCPCS: 72158; A9585

== ENCOUNTER 2024-11-06 02:05 | Emergency (ER) | payer BC ==
[2024-11-06 02:49] LABS: Basophils # (A) 0.03 10*3/uL (0.00-0.10); Basophils % (A) 0.4 %; Eosinophils # (A) 0.18 10*3/uL (0.04-0.35); Eosinophils % (A) 2.4 %; HCT 45.5 % (39.6-50.0); HGB 14.8 g/dL (13.0-17.0); Lymphocytes # (A) 1.96 10*3/uL (0.90-5.00); Lymphocytes % (A) 26.1 %; MCH 24.4 pg (27.0-32.0); MCHC 32.5 g/dL (32.0-37.0); Monocytes # (A) 0.59 10*3/uL (0.20-1.00); Monocytes % (A) 7.9 %; Neutrophils # (A) 4.74 10*3/uL (1.80-7.70); Neutrophils % (A) 63.1 %; Platelet Count 330 10*3/uL (140-440); RBC 6.07 10*6/uL (4.40-5.60); RDW 18.3 % (11.5-14.5); WBC 7.51 10*3/uL (4.50-10.00)
[2024-11-06] MEDS: PANTOPRAZOLE 40 MG/10 ML VIAL IVP STA (03:00)
[2024-11-06 03:03] LABS: Partial Thromboplastin Time 23.7 sec (22.0-30.0); Prothrombin Time 11.1 sec (10.0-12.5)
[2024-11-06 03:14] LABS: ALT 27 U/L (4-49); AST 29 U/L (17-59); African American GFR (CKD) >90 (>60 ml/min/1.73 sqM); Albumin 5.2 g/dL (3.5-5.0); Alkaline Phosphatase 52 U/L (38-126); Amylase 56 U/L (30-110); Anion Gap 13 mmol/L; Blood Urea Nitrogen 14 mg/dL (9-20); Calcium 9.8 mg/dL (8.4-10.2); Carbon Dioxide 23 mmol/L (22-30); Chloride 103 mmol/L (98-107); Glucose 109 mg/dL (74-99); Lipase 76 U/L (23-300); Non-African American GFR(CKD) 85 (>60 ml/min/1.73 sqM); Sodium 139 mmol/L (137-145); Total Bilirubin 0.7 mg/dL (0.2-1.3)
--- NOTE | 2024-11-06 04:14 | ED ---
Abdominal Pain HPI - General Chief Complaint: Abdominal Pain Stated Complaint: Abd pain Time Seen by Provider: 11/06/24 02:16 Source: patient Mode of arrival: ambulatory Limitations: no limitations - History of Present Illness Initial Comments: This patient is a 29-year-old man who states that he has previous history of ulcers, presenting with approximately 1 day of abdominal pain, mainly on the right side. Patient states that it has been the right upper and lower quadrant. He sometimes had some symptoms into the right groin. Patient described the pain as aching, he states is somewhat similar to previous pain he had when he was told he had ulcer. The patient has had associated nausea. He did state that earlier in the day he thought he might have seen some blood with a bowel movement. He is denying symptoms of anemia, no lightheadedness, palpitations, dyspnea, diaphoresis. MD Complaint: abdominal pain -: days(s) Location: RUQ, RLQ Migration to: no migration Severity: moderate Quality: aching, burning Consistency: constant Improves With: nothing Worsens With: nothing Associated Symptoms: nausea - Related Data Home Medications Medication Instructions Recorded Confirmed Pantoprazole [Protonix] 40 mg PO BID 07/19/22 07/19/23 Atorvastatin [Lipitor] 40 mg PO DAILY 07/15/23 07/19/23 Famotidine [Pepcid] 20 mg PO HS 07/15/23 07/19/23 Azithromycin [Zithromax] 500 mg PO DIRECTED 07/18/23 07/19/23 Doxycycline [Vibramycin] 100 mg PO BID 07/18/23 07/19/23 Previous Rx's Medication Instructions Recorded Metoclopramide [Reglan] 10 mg PO HS PRN #15 tab 02/25/24 Ondansetron Odt [Zofran Odt] 4 mg PO Q8HR PRN #10 tab 02/25/24 Allergies Allergy/AdvReac Type Severity Reaction Status Date / Time clindamycin Allergy Rash/Hives Verified 11/06/24 02:10 pollen extracts Allergy Unknown Verified 11/06/24 02:10 wheat Allergy Unknown Verified 11/06/24 02:10 dust Allergy Unknown Uncoded 11/06/24 02:10 Review of Systems ROS Statement: Those systems with pertinent positive or pertinent negative responses have been documented in the HPI. ROS Other: All systems not noted in ROS Statement are negative. Constitutional: Denies: fever, chills, weakness Respiratory: Denies: cough, dyspnea Cardiovascular: Denies: chest pain, palpitations, dyspnea on exertion, edema, syncope Gastrointestinal: Reports: abdominal pain, nausea, hematochezia. Denies: vomiting, diarrhea, hematemesis, melena Genitourinary: Denies: dysuria, hematuria, testicular pain, testicular mass Musculoskeletal: Denies: back pain Skin: Denies: rash Neurological: Denies: headache, weakness, numbness Hematological/Lymphatic: Denies: easy bleeding Past Medical History Past Medical History: GERD/Reflux, Hyperlipidemia, Hypertension Additional Past Medical History / Comment(s): indigestion recently, trey. @night, stuff comes up back of throat & wakes him up, has had some bouts of BP being elevated but has never taken medication, recent flu & sinus infection-just finished A/B & steroids, feeling better History of Any Multi-Drug Resistant Organisms: None Reported Past Surgical History: Ear Surgery Additional Past Surgical History / Comment(s): BMT. Sinus Surgery, scrotum surgery for benign mass Past Anesthesia/Blood Transfusion Reactions: No Reported Reaction Past Psychological History: ADD/ADHD, Anxiety, Depression Smoking Status: Current every day smoker, Vaper Past Alcohol Use History: None Reported Past Drug Use History: Marijuana - Past Family History Mother Family Medical History: No Reported History General Exam Limitations: no limitations General appearance: alert, in no apparent distress Head exam: Present: atraumatic, normocephalic Eye exam: Present: normal appearance. Absent: scleral icterus, conjunctival injection ENT exam: Present: normal oropharynx Neck exam: Present: normal inspection Respiratory exam: Present: normal lung sounds bilaterally. Absent: respiratory distress, wheezes, rales, rhonchi, stridor, accessory muscle use Cardiovascular Exam: Present: regular rate, normal rhythm, normal heart sounds. Absent: systolic murmur, diastolic murmur, rubs, gallop GI/Abdominal exam: Present: soft. Absent: distended, tenderness, guarding, rebound, rigid, mass Extremities exam: Present: normal inspection, normal capillary refill. Absent: pedal edema, calf tenderness Back exam: Present: normal inspection. Absent: CVA tenderness (R), CVA tenderness (L) Neurological exam: Present: alert Skin exam: Present: warm, dry, intact, normal color. Absent: rash Course Vital Signs 11/06/24 11/06/24 02:07 05:03 Temperature 97.4 F L 97.8 F Pulse Rate 119 H 90 Respiratory 20 18 Rate Blood Pressure 139/93 150/97 O2 Sat by Pulse 98 97 Oximetry Medical Decision Making - Medical Decision Making Was pt. sent in by a medical professional or institution (, [facility], [facility], urgent care, hospital, or detention...) When possible be specific @ -[No] Did you speak to anyone other than the patient for history (EMS, parent, family, police, friend...)? What history was obtained from this source @ -[No] Did you review nursing and triage notes (agree or disagree)? Why? @ -[I reviewed and agree with nursing and triage notes] Were old charts reviewed (outside hosp., previous admission, EMS record, old EKG, old radiological studies, urgent care reports/EKG's, detention records)? Report findings @ -[No old charts were reviewed] Differential Diagnosis (chest pain, altered mental status, abdominal pain women, abdominal pain men, vaginal bleeding, weakness, fever, dyspnea, syncope, headache, dizziness, GI bleed, back pain, seizure, CVA, palpatations, mental health, musculoskeletal)? @ -Differential Abdominal Pain Men: Appendicitis, cholecystitis, diverticulosis, ischemic bowel, pancreatitis, hepatitis, UTI, gastroenteritis, AAA, incarcerated hernia, bowel obstruction, constipation, inflammatory bowel, hepatitis, peptic ulcer disease, splenic infarction, perforated viscus, testicular torsion, this is not meant to be an all-inclusive list EKG interpreted by me (3pts min.). @ -[As above] X-rays interpreted by me (1pt min.). @ -[None done] CT interpreted by me (1pt min.). @ -[None done] U/S interpreted by me (1pt. min.). @ -[None done] What testing was considered but not performed or refused? (CT, X-rays, U/S, labs)? Why? @ -[None] What meds were considered but not given or refused? Why? @ -[None] Did you discuss the management of the patient with other professionals ( professionals i.e. , [facility], [facility], lab, RT, psych nurse, clinical social work therapist, sales development representative, teacher, environmental officer, skilled nursing case manager)? Give summary @ -[No] Was smoking cessation discussed for >3mins.? @ -[No] Was critical care preformed (if so, how long)? @ -[No] Were there social determinants of health that impacted care today? How? (Homelessness, low income, unemployed, alcoholism, drug addiction, transportati on, low edu. Level, literacy, decrease access to med. care, half-way, rehab)? @ -[No] Was there de-escalation of care discussed even if they declined (Discuss DNR or withdrawal of care, Hospice)? DNR status @ -[No] What co-morbidities impacted this encounter? (DM, HTN, Smoking, COPD, CAD, Cancer, CVA, ARF, Chemo, Hep., AIDS, mental health diagnosis, sleep apnea, morbid obesity)? @ -[None] Was patient admitted / discharged? Hospital course, mention meds given and route, prescriptions, significant lab abnormalities, going to OR and other pertinent info. @ -[Patient is a 29-year-old man here with abdominal pain. The patient's exam is benign, there are no signs of developing peritoneal signs or surgical type condition. The patient does not appear to be anemic or hypovolemic. The patient's laboratories also benign. The patient's hemoglobin is normal, at this time declining digital rectal exam for Hemoccult. The patient is feeling better with medication here. We discussed appropriate further care and follow- up as well as return parameters. Undiagnosed new problem with uncertain prognosis? @ -[No] Drug Therapy requiring intensive monitoring for toxicity (Heparin, Nitro, Insulin, Cardizem)? @ -[No] Were any procedures done? @ -[No] Diagnosis/symptom? @ -[Acute abdominal pain Episode of gastrointestinal bleeding Acute, or Chronic, or Acute on Chronic? @ -[Acute Uncomplicated (without systemic symptoms) or Complicated (systemic symptoms)? @ -Uncomplicated Side effects of treatment? @ -[No] Exacerbation, Progression, or Severe Exacerbation? @ -[No] Poses a threat to life or bodily function? How? (Chest pain, [place], [place], pneumonia, PE, COPD, DKA, ARF, appy, cholecystitis, CVA, Diverticulitis, Homicidal, Suicidal, threat to staff... and all critical care pts) @ -[No] - Lab Data Result diagrams: 11/06/24 02:37 11/06/24 02:37 Lab Results 11/06/24 11/06/24 11/06/24 Range/Units 02:13 02:17 02:37 WBC 7.51 (4.50-10.00) 10*3/uL RBC 6.07 H (4.40-5.60) 10*6/uL Hgb 14.8 (13.0-17.0) g/dL Hct 45.5 (39.6-50.0) % MCV 75.0 L (80.0-97.0) fL MCH 24.4 L (27.0-32.0) pg MCHC 32.5 (32.0-37.0) g/dL Plt Count 330 (140-440) 10*3/uL MPV 9.0 L (9.5-12.2) fL Immature Gran % (Auto) 0.1 % Neutrophils % 63.1 % Lymphocytes % 26.1 % Monocytes % 7.9 % Eosinophils % 2.4 % Basophils % 0.4 % Immature Gran # 0.01 (0.00-0.04) 10*3/uL Neutrophils # 4.74 (1.80-7.70) 10*3/uL Lymphocytes # 1.96 (0.90-5.00) 10*3/uL Monocytes # 0.59 (0.20-1.00) 10*3/uL Eosinophils # 0.18 (0.04-0.35) 10*3/uL Basophils # 0.03 (0.00-0.10) 10*3/uL PT (10.0-12.5) sec INR (<1.2) APTT (22.0-30.0) sec Sodium (137-145) mmol/L Potassium (3.5-5.1) mmol/L Chloride (98-107) mmol/L Carbon Dioxide (22-30) mmol/L Anion Gap mmol/L BUN (9-20) mg/dL Creatinine (0.66-1.25) mg/dL Est GFR (CKD-EPI)AfAm (>60 ml/min/1.73 sqM) Est GFR (CKD-EPI)NonAf (>60 ml/min/1.73 sqM) Glucose (74-99) mg/dL Plasma Lactic Acid Jesse (0.7-2.0) mmol/L Calcium (8.4-10.2) mg/dL Total Bilirubin (0.2-1.3) mg/dL AST (17-59) U/L ALT (4-49) U/L Alkaline Phosphatase (38-126) U/L Total Protein (6.3-8.2) g/dL Albumin (3.5-5.0) g/dL Amylase (30-110) U/L Lipase (23-300) U/L Blood Type B Positive Blood Type Confirm B Positive Blood Type Recheck Bld Type Recheck Status Antibody Screen NEGATIVE Spec Expiration Date 11/09/2024 - 233611/06/24 11/06/24 11/06/24 Range/Units 02:37 02:37 02:37 WBC (4.50-10.00) 10*3/uL RBC (4.40-5.60) 10*6/uL Hgb (13.0-17.0) g/dL Hct (39.6-50.0) % MCV (80.0-97.0) fL MCH (27.0-32.0) pg MCHC (32.0-37.0) g/dL Plt Count (140-440) 10*3/uL MPV (9.5-12.2) fL Immature Gran % (Auto) % Neutrophils % % Lymphocytes % % Monocytes % % Eosinophils % % Basophils % % Immature Gran # (0.00-0.04) 10*3/uL Neutrophils # (1.80-7.70) 10*3/uL Lymphocytes # (0.90-5.00) 10*3/uL Monocytes # (0.20-1.00) 10*3/uL Eosinophils # (0.04-0.35) 10*3/uL Basophils # (0.00-0.10) 10*3/uL PT 11.1 (10.0-12.5) sec INR 1.0 (<1.2) APTT 23.7 (22.0-30.0) sec Sodium 139 (137-145) mmol/L Potassium 4.0 (3.5-5.1) mmol/L Chloride 103 (98-107) mmol/L Carbon Dioxide 23 (22-30) mmol/L Anion Gap 13 mmol/L BUN 14 (9-20) mg/dL Creatinine 1.16 (0.66-1.25) mg/dL Est GFR (CKD-EPI)AfAm >90 (>60 ml/min/1.73 sqM) Est GFR (CKD-EPI)NonAf 85 (>60 ml/min/1.73 sqM) Glucose 109 H (74-99) mg/dL Plasma Lactic Acid Jesse 1.5 (0.7-2.0) mmol/L Calcium 9.8 (8.4-10.2) mg/dL Total Bilirubin 0.7 (0.2-1.3) mg/dL AST 29 (17-59) U/L ALT 27 (4-49) U/L Alkaline Phosphatase 52 (38-126) U/L Total Protein 8.0 (6.3-8.2) g/dL Albumin 5.2 H (3.5-5.0) g/dL Amylase 56 (30-110) U/L Lipase 76 (23-300) U/L Blood Type Blood Type Confirm Blood Type Recheck Bld Type Recheck Status Antibody Screen Spec Expiration Date 11/06/24 Range/Units 02:37 WBC (4.50-10.00) 10*3/uL RBC (4.40-5.60) 10*6/uL Hgb (13.0-17.0) g/dL Hct (39.6-50.0) % MCV (80.0-97.0) fL MCH (27.0-32.0) pg MCHC (32.0-37.0) g/dL Plt Count (140-440) 10*3/uL MPV (9.5-12.2) fL Immature Gran % (Auto) % Neutrophils % % Lymphocytes % % Monocytes % % Eosinophils % % Basophils % % Immature Gran # (0.00-0.04) 10*3/uL Neutrophils # (1.80-7.70) 10*3/uL Lymphocytes # (0.90-5.00) 10*3/uL Monocytes # (0.20-1.00) 10*3/uL Eosinophils # (0.04-0.35) 10*3/uL Basophils # (0.00-0.10) 10*3/uL PT (10.0-12.5) sec INR (<1.2) APTT (22.0-30.0) sec Sodium (137-145) mmol/L Potassium (3.5-5.1) mmol/L Chloride (98-107) mmol/L Carbon Dioxide (22-30) mmol/L Anion Gap mmol/L BUN (9-20) mg/dL Creatinine (0.66-1.25) mg/dL Est GFR (CKD-EPI)AfAm (>60 ml/min/1.73 sqM) Est GFR (CKD-EPI)NonAf (>60 ml/min/1.73 sqM) Glucose (74-99) mg/dL Plasma Lactic Acid Jesse (0.7-2.0) mmol/L Calcium (8.4-10.2) mg/dL Total Bilirubin (0.2-1.3) mg/dL AST (17-59) U/L ALT (4-49) U/L Alkaline Phosphatase (38-126) U/L Total Protein (6.3-8.2) g/dL Albumin (3.5-5.0) g/dL Amylase (30-110) U/L Lipase (23-300) U/L Blood Type Blood Type Confirm Blood Type Recheck No Previous Record Bld Type Recheck Status CABO Indicated Antibody Screen Spec Expiration Date Disposition Clinical Impression: GI bleeding, Abdominal pain Disposition: HOME SELF-CARE Condition: Good Instructions (If sedation given, give patient instructions): Abdominal Pain (ED) Is patient prescribed a controlled substance at d/c from ED?: No Referrals: Naresh Diamond MD [Primary Care Provider] - 1-2 days
[2024-11-06 05:05] VITALS: BP 150/97; PULSE 90; RESP 18; TEMP 97.8
== END 2024-11-06 05:05 | disposition home or self-care (01) ==
LOC: EC 02:05
DX: K92.2 Gastrointestinal hemorrhage, unspecified (principal); F17.290 Nicotine dependence, other tobacco product, uncomplicated; Z88.1 Allergy status to other antibiotic agents; Z91.018 Allergy to other foods; Z91.038 Other insect allergy status; Z88.8 Allergy status to other drugs, medicaments and biological substances
CPT/HCPCS: 36415; 86900; 86901; 80053; 82150; 83605; 83690; 85025; 85610; 85730; 86850; 99284; 96374; J2470